=== PATIENT | female | born 1955 | race Caucasian/White ===

== ENCOUNTER → 2019-04-05 | Day surgery (SDC) | payer MEDICARE ==
[~2019-04-05] MED LIST: BUPIVACAINE HCL 0.5 % INJ/PF 30 ML SDV ONE; LIDOCAINE 1% INJ-PF (10 MG/ML) 30 ML SDV ONE
--- NOTE | 2019-04-05 10:40 | Operative Report ---
PREOPERATIVE DIAGNOSIS: Spondylolisis without myopathy or radiculopathy M47.818// Lumbar Sacral Spondylolisis without myopathy or radiculopathy M47.817 POSTOPERATIVE DIAGNOSIS:Spondylolisis without myopathy or radiculopathy M47.818// Lumbar Sacral Spondylolisis without myopathy or radiculopathy M47.817 PROCEDURE: 1. Radiofrequency Ablation of bilateral L5 dorsal Ramus 2. Sacroiliac Joint Ablation - Lateral Branches of the lateral S1, S2, S3 DATE OF PROCEDURE: April 05, 2019 ANESTHESIA: Local COMPLICATIONS: None CONSENT: A full description of the procedure was provided including benefits as well as possible complications. All questions were answered and informed consent was given and signed. ASA guidelines for fasting were verified prior to sedation. PROCEDURE IN DETAIL The patient was brought into the fluoroscopy suite and carefully assisted into the prone position on the fluoroscopy table and allowed to adjust to a position of comfort. A grounding pad was placed on the right thigh. The low back and buttocks were widely prepped with a chloraprep solution, allowed to air dry and draped in standard sterile surgical fashion. Local anesthesia was provided by 12 mL of 1 % lidocaine delivered with a 25 g needle. PROCEDURE #1: Radiofrequency Ablation of Dorsal Ramus of bilateral L5. A 17g 100mm radiofrequency introducer needle was placed to the planned anatomic target, guided with intermittent fluoroscopy with a perpendicular approach, to terminally place at the bilateral sacral ala. The stylets were removed and the radiofrequency probes with a 4mm active tip were then inserted. Needle tip position of the probes were verified in the AP, oblique, and lateral views. At each site, the medial branch nerve was stimulated at 2Hz to a maximum of 1- 2volts determined to finalize safe needle and electrode placement. The patient was awake and responsive during this portion of the procedure. Each target was anesthetized with 2mL of 2 % Sensorcaine anesthesia for lesioning and then each target was lesioned at 80 degrees Celsius for 2 minutes and 30 seconds. Tissue impedences were noted to be between 250 and 500 Ohms. PROCEDURE #2: Radiofrequency Ablation of bilateral S1, S2, S3 Lateral Branches Using the AP fluoroscopic view for visualization of the lateral PSFA as defined by the pre-placed 27-gauge Quincke needles, appropriate skin starting positions were defined. Using the PSFA as a "clock-face", the positions were: S1; bilateral = 1 and 5 oclock S2; bilateral = 1 and 5 oclock S3; bilateral = 3 oclock Using fluoroscopic guidance, a 17g introducer needle was inserted sequentially onto the target positions described above until the introducer tip touched the bony surface of the sacrum. The stylet was withdrawn from the introducer and the radiofrequency probe with a 4 mm active tip was fully inserted into the introducer. A lateral view was obtained for standard reference. At each of the targets, needle placement was verified with the use of multi-planar fluoroscopy. The needle tip position was approximately 7 - 10mm lateral to the PSFA as determined by using an Epsilon ruler. At each site, the lateral branch nerve was stimulated at 2 Hz to a maximum of 1- 2 volts determined to finalize safe needle and electrode placement. The patient was awake and responsive during this portion of the procedure. Each target was anesthetized with 2 mL of 2 % Sensorcaine anesthesia for lesioning and then each target was lesioned at 80 degrees Celsius for 2 minutes and 30 seconds. Tissue impedences were noted to be between 250- 500 Ohms. At the conclusion of the lesioning the needles were removed and bandages placed over the needle placement sites and the patient returned to the supine position on a stretcher and trans ported to the recovery room without hemodynamic, neurologic, or allergic reactions. Fluoroscopic images were printed for hard copy recording and digitally archived. FLUOROSCOPIC INTERPRETATION: Appropriate epidurogram obtained. Appropriate lesioning of the 10 targets noted. POST PROCEDURE EVALUATION: The patient was comfortable in the recovery room. The patient is aware that pain may worsen before remitting and 4 6 weeks may be required prior to the onset of pain relief. IMPRESSION: 1. Technically successful sacral lateral branch, lumbar dorsal ramus for denervation from L5-S3 on the bilateral without complication. 2. RTC in 2 weeks. 3. Estimated Blood Loss: None 4. Fluoroscopy time: 30 seconds
== END ==
LOC: RAD 10:22
PROVIDERS: ATTEND Family Medicine
DX: M47.817 Spondylosis without myelopathy or radiculopathy, lumbosacral region (principal)
CPT/HCPCS: 64635; 64640 ×3; J3490 ×2

== ENCOUNTER 2019-05-02 11:19 | Observation (INO) | payer MEDICARE ==
--- NOTE | 2019-05-02 11:31 | ER Document Report ---
ED Medical Screen (RME) - General Chief Complaint: S/S of Possible Stroke Stated Complaint: NUMBNESS/WEAKNESS Time Seen by Provider: 05/02/19 11:27 Primary Care Provider: TAMANNA CORONADO DO [Primary Care Provider] - Follow up as needed Mode of Arrival: Wheelchair Information source: Patient Notes: This 64-year-old female presents today with possible stroke. Patient has history of TIAs. She reports she woke up at 6:00 this morning felt a little bit weird. She then woke up at 10:00 this morning her numb lips were numb her speech is changed her legs feel weak. Her friend with her reports her speech is off. 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 Slurred speech, slight tongue deviation to the right. Patient does take anticoagulants but her friends are not sure w hat she takes. I have greeted and performed a rapid initial assessment of this patient. A comprehensive ED assessment and evaluation of the patient, analysis of test results and completion of the medical decision making process will be conducted by additional ED providers. Dictation of this chart was performed using voice recognition software; therefore, there may be some unintended grammatical errors. TRAVEL OUTSIDE OF THE [place] IN LAST 30 DAYS: No - Related Data Allergies/Adverse Reactions: codeine Allergy (Verified 05/02/19 11:20) ivp dye Allergy (Uncoded 05/02/19 11:20) Doctor's Discharge - Discharge Referrals: TAMANNA CORONADO DO [Primary Care Provider] - Follow up as needed
--- NOTE | 2019-05-02 11:52 | RADIOLOGY REPORT (SQ) ---
EXAM DESCRIPTION: CT HEAD WITHOUT COMPLETED DATE/TIME: 05/02/2019 11:44 am REASON FOR STUDY: bed t1 stroke alert COMPARISON: None. TECHNIQUE: Axial images acquired through the brain without intravenous contrast. Images reviewed wi th bone, brain and subdural windows. Images stored on PACS. All CT scanners at this facility use dose modulation, iterative reconstruction, and/or weight based d osing when appropriate to reduce radiation dose to as low as reasonably achievable (ALARA). [facility]: Dose Right [facility]: CareDose [facility]: Dose Right [facility]: Teradose 4D [facility]: Smart Nimble TV RADIATION DOSE: CT Rad equipment meets quality standard of care and radiation dose reduction techniq ues were employed. CTDIvol: 53.2 mGy. DLP: 1044 mGy-cm. mGy. LIMITATIONS: None. FINDINGS: VENTRICLES: Normal size and contour. CEREBRUM: No masses. No hemorrhage. No midline shift. No evidence for acute infarction. Normal gra y/white matter differentiation. No areas of low density in the white matter. CEREBELLUM: No masses. No hemorrhage. No alteration of density. No evidence for acute infarction. EXTRAAXIAL SPACES: No fluid collections. No masses. ORBITS AND GLOBE: No intra- or extraconal masses. Normal contour of globe without masses. CALVARIUM: No fracture. PARANASAL SINUSES: No fluid or mucosal thickening. SOFT TISSUES: No mass or hematoma. OTHER: No other significant finding. IMPRESSION: NORMAL BRAIN CT WITHOUT CONTRAST. EVIDENCE OF ACUTE STROKE: NO. COMMENT: Quality ID # [id number]: Final reports with documentation of one or more dose reduction techniques (e.g., Automated exposure control, adjustment of the mA and/or kV according to patient size, use of iterative reconstruction technique) TECHNICAL DOCUMENTATION: JOB ID: [id number] [employer] All Rights Reserved Reading location - IP/workstation name: [email or web address]
--- NOTE | 2019-05-02 12:02 | ER Document Report ---
ED Neuro Symptoms/Deficit - General Chief Complaint: S/S of Possible Stroke Stated Complaint: NUMBNESS/WEAKNESS Time Seen by Provider: 05/02/19 11:27 Primary Care Provider: TAMANNA CORONADO DO [Primary Care Provider] - Follow up as needed Mode of Arrival: Wheelchair Notes: Patient says that she is noted numbness around her lips and tongue starting this morning around 6 AM. Also noted weakness of her right leg and difficulty bearing weight and needing assistance to walk. No problem with her right arm or hand. Patient is never had a stroke, but says she has had 5 previous TIAs, the most recent being about a year and a half ago. Her symptoms today do not feel like what she has had previously with these TIAs. Patient denies any loss of consciousness. No headache until about 1 hour ago she developed some headache. No nausea or vomiting. Patient had a pain relief procedure performed on her about 2 weeks ago by a local pain physician. It was a procedure called Coolief in which she has cold water injected into the lumbar spine area. Patient said he did not do anything for her pain. Her follow-up from that procedure is to get MRIs of her spine, which have not been done yet. Patient has a history of high blood pressure, is on blood pressure medicines as well as Plavix. Denies any history of heart disease. TRAVEL OUTSIDE OF THE [place] IN LAST 30 DAYS: No - Related Data Allergies/Adverse Reactions: codeine Allergy (Verified 05/02/19 11:20) ivp dye Allergy (Uncoded 05/02/19 11:20) Past Medical History - General Information source: Patient - Social History Smoking Status: Current Every Day Smoker Family History: Reviewed & Not Pertinent - Past Medical History Cardiac Medical History: Reports: Hx Hypertension Neurological Medical History: Denies: Hx Cerebrovascular Accident - History of TIAs x5, the most recent being about a year and a half ago. Review of Systems - Review of Systems Notes: REVIEW OF SYSTEMS: CONSTITUTIONAL : Denies fever. EENT: Denies eye, ear, nose or mouth or throat pain or other symptoms, except as described in HPI. CARDIOVASCULAR: Denies chest pain. RESPIRATORY: Denies cough, chest congestion, or shortness of breath. GASTROINTESTINAL: Denies abdominal pain or nausea, vomiting, or diarrhea. GENITOURINARY: Denies difficulty or painful urinating, urinary frequency, blood in urine. MUSCULOSKELETAL: Denies back or neck pain. Denies joint pain or swelling. SKIN: Denies rash or skin lesions. NEUROLOGICAL: See HPI. ALL OTHER SYSTEMS REVIEWED AND NEGATIVE. Physical Exam - Vital signs Vitals: Pulse Ox 95 05/02/19 11:45 Interpretation: Hypertensive Notes: PHYSICAL EXAMINATION: GENERAL: Well-appearing, in no acute distress. Voice is normal. Does not have slurred speech. HEAD: Atraumatic, normocephalic. No facial asymmetry or indication of any cranial nerve deficit. EYES: Pupils equal round and reactive to light, extraocular movements intact. ENT: oropharynx clear without exudates. Moist mucous membranes. No problems swallowing. NECK: Normal range of motion, supple. No carotid bruits. LUNGS: Breath sounds clear and equal bilaterally. HEART: Regular rate and rhythm without murmurs. ABDOMEN: Soft, nontender. No guarding or rebound. No masses. BACK: No tenderness throughout entire back. EXTREMITIES: Normal range of motion without pain. NEUROLOGICAL: Normal speech. Normal sensory, motor, and reflex exams. Awake, alert, and oriented x3. Cranial nerves normal. Patient can stand, but is a bit unsteady on her feet and is best with support/assistance. No decrease in layer off of the right hand. [id number]. PSYCH: Normal mood, normal affect. SKIN: Warm, dry, no rashes. Course - Re-evaluation Re-evalutation: 05/02/19 13:23 Patient is outside of any window for thrombolytic administration. Is been a good 6 hours since the onset of her symptoms. Patient's work-up is essentially normal. CT scan shows no stroke. Spoke with hospitalist who will admit the patient for observation to [facility]. 05/02/19 13:24 Patient's initial blood pressure was 180/111 by me at the bedside. Subsequently, blood pressure came down to a systolic of 160 and I do not feel we need to lower it anymore given her circumstances. - Vital Signs Vital signs: Temp Pulse Resp BP Pulse Ox 95 05/02/19 11:45 - Laboratory Result Diagrams: 05/02/19 11:56 05/02/19 11:56 - Diagnostic Test Radiology reviewed: Image reviewed, Reports reviewed - CT scan of the brain is normal. No evidence of stroke. - EKG Interpretation by Me EKG shows normal: Sinus rhythm Rate: Normal Rhythm: NSR - EKG is normal. Discharge - Discharge Clinical Impression: TIA (transient ischemic attack), Hypertension Condition: Stable Disposition: ADMITTED OBSERVATION Admitting Provider: Oriana (Hospitalist) Unit Admitted: IMCU Referrals: TAMANNA CORONADO DO [Primary Care Provider] - Follow up as needed
[2019-05-02 12:16] LABS: ABSOLUTE BASOPHILS # (AUTO) 0.2 10^3/uL (0.0-0.2); ABSOLUTE EOSINOPHILS # (AUTO) 0.2 10^3/uL (0.0-0.6); ABSOLUTE MONOCYTES (AUTO) 0.9 10^3/uL (0.1-1.4); ABSOLUTE NEUT (AUTO) 9.5 10^3/uL (1.7-8.2); BASOPHILS % (AUTO) 1.2 % (0-2); EOSINOPHILS % (AUTO) 1.2 % (0-6); HEMATOCRIT 44.4 % (36.0-47.0); HEMOGLOBIN 14.8 g/dL (12.0-15.5); INTERNATIONAL RATION (INR) 0.93; MEAN CORPUSCULAR HGB CONC 33.4 g/dL (32.0-36.0); MEAN CORPUSCULAR VOLUME 90 fl (80-97); PLATELET COUNT 326 10^3/uL (150-450); PROTHROMBIN TIME 12.5 SEC (11.4-15.4); RED BLOOD COUNT 4.93 10^6/uL (3.72-5.28); RED CELL DISTRIBUTION WIDTH 14.9 % (11.5-14.0); SEGMENTED NEUTROPHILS % (AUTO) 64.6 % (42-78); TOTAL CELLS COUNTED % (AUTO) 100 %; WHITE BLOOD COUNT 14.7 10^3/uL (4.0-10.5)
[2019-05-02 12:17] LABS: PARTIAL THROMBOPLASTIN TIME 29.7 SEC (23.5-35.8)
--- NOTE | 2019-05-02 12:26 | RADIOLOGY REPORT (SQ) ---
EXAM DESCRIPTION: CHEST SINGLE VIEW COMPLETED DATE/TIME: 05/02/2019 12:04 pm REASON FOR STUDY: bed t1 stroke alert COMPARISON: None. EXAM PARAMETERS: NUMBER OF VIEWS: One view. TECHNIQUE: Single frontal radiographic view of the chest acquired. RADIATION DOSE: NA LIMITATIONS: None. FINDINGS: The cardiomediastinal silhouette and pulmonary vasculature are within normal limits. Ther e is a strand of atelectasis in the left base. There is no consolidation, pleural effusion or pneumo thorax. There is no acute abnormality of the imaged osseous structures. IMPRESSION: No acute cardiopulmonary process. TECHNICAL DOCUMENTATION: JOB ID: [id number] [employer]- All Rights Reserved Reading location - IP/workstation name: [email or web address]
[2019-05-02 12:34] LABS: ALBUMIN 4.2 g/dL (3.5-5.0); ALKALINE PHOSPHATASE 102 U/L (38-126); ANION GAP 7 (5-19); ASPARTATE AMINO TRANSFERASE 21 U/L (14-36); BILIRUBIN,DIRECT 0.1 mg/dL (0.0-0.4); BILIRUBIN,TOTAL 0.5 mg/dL (0.2-1.3); BLOOD UREA NITROGEN 12 mg/dL (7-20); CALCIUM 11.3 mg/dL (8.4-10.2); CARBON DIOXIDE 26 mmol/L (22-30); CHLORIDE 104 mmol/L (98-107); CREATINE KINASE 31 U/L (30-135); GLUCOSE 109 mg/dL (75-110); POTASSIUM 4.2 mmol/L (3.6-5.0); TOTAL PROTEIN 6.7 g/dL (6.3-8.2)
[2019-05-02] MEDS ORDERED: ONDANSETRON 4 MG TAB.RAPDIS PO ONE (12:44)
[2019-05-02] MEDS ORDERED: ACETAMINOPHEN 325 MG TABLET PO ONE (12:45)
[2019-05-02 12:46] LABS: CREATINE KINASE MB 0.45 ng/mL (<4.55)
[2019-05-02 12:53] LABS: TROPONIN I < 0.012 ng/mL
[2019-05-02] MEDS ORDERED: HYDRALAZINE HCL INJ/PF 20 MG/1 ML SDV IV PRN (14:36)
--- NOTE | 2019-05-02 15:07 | PDOC H&P ---
History of Present Illness Admission Date/PCP: 05/02/19 13:30 TAMANNA CORONADO DO Patient complains of: numbness History of Present Illness: ALISON HENRY is a 64 year old female with a past medical history of hypertension, hypothyroidism and prior TIAs who is presenting with numbness. Patient says that she was apparently fine until she woke up around 6 AM and went to the bathroom when she felt that she was unsteady on her feet. She also reports she was feeling numb on the fingers of her right hand, right lip and the right jaw area. She was seen by her best friend/neighbor who thought that she was also having slurred speech. She denies any headache, nausea or vomiting. Denies any chest pain or shortness of breath. In the ER, she had resolving symptoms. My encounter, her neighbor said that her speech is not slurred anymore. Patient says that she only now has very minimal tingling and numbness on the fingers of her right hand. Past Medical History Cardiac Medical History: Reports: Hypertension Past Surgical History Past Surgical History: Reports: Cholecystectomy, Hysterectomy, Orthopedic Surgery - back, Tonsillectomy Social History Smoking Status: Current Every Day Smoker Family History Family History: Reviewed & Not Pertinent Parental Family History Reviewed: Yes - No premature CAD Children Family History Reviewed: No Sibling(s) Family History Reviewed.: No Medication/Allergy Home Medications: Clopidogrel Bisulfate [Plavix 75 mg Tablet] 75 mg PO DAILY 05/02/19 Ibuprofen [Motrin 800 mg Tablet] 800 mg PO Q8HP PRN 05/02/19 Levothyroxine Sodium 200 mcg PO Q6AM 05/02/19 Metoprolol Succinate [Toprol XL 100 mg Tablet] 100 mg PO Q12 05/02/19 l Acidophil/B Lactis/B Longum [Florajen3 Capsule] 460 mg PO DAILY 05/02/19 Allergies/Adverse Reactions: codeine Allergy (Verified 05/02/19 11:20) ivp dye Allergy (Uncoded 05/02/19 11:20) Review of Systems All systems: reviewed and no additional remarkable complaints except as stated - As mentioned in HPI Physical Exam Vital Signs: Temp Pulse Resp BP Pulse Ox 98.1 F 91 22 H 171/95 H 96 05/02/19 13:31 05/02/19 12:00 05/02/19 13:31 05/02/19 13:31 05/02/19 13:31 Intake & Output 05/01/19 05/02/19 05/03/19 06:59 06:59 06:59 Weight 182 lb 8.684 oz General appearance: PRESENT: no acute distress, well-developed, well-nourished Head exam: PRESENT: atraumatic, normocephalic Eye exam: PRESENT: conjunctiva pink, EOMI, PERRLA. ABSENT: scleral icterus Ear exam: PRESENT: normal external ear exam Mouth exam: PRESENT: moist, tongue midline Neck exam: ABSENT: carotid bruit, JVD, lymphadenopathy, thyromegaly Respiratory exam: PRESENT: clear to auscultation rishabh. ABSENT: rales, rhonchi, wheezes Cardiovascular exam: PRESENT: RRR. ABSENT: diastolic murmur, rubs, systolic murmur Pulses: PRESENT: normal dorsalis pedis pul GI/Abdominal exam: PRESENT: normal bowel sounds, soft. ABSENT: distended, guarding, mass, organolmegaly, rebound, tenderness Rectal exam: PRESENT: deferred Neurological exam: PRESENT: alert, awake, oriented to person, oriented to place, oriented to time, oriented to situation, CN II-XII grossly intact, motor sensory deficit - Patient reports slightly reduced sensation on the right toe area and the tips of fingers on the right hand Results Laboratory Results: 05/02/19 11:56 05/02/19 11:56 05/02/19 05/02/19 11:56 11:56 WBC 14.7 H RBC 4.93 Hgb 14.8 Hct 44.4 MCV 90 MCH 30.0 MCHC 33.4 RDW 14.9 H Plt Count 326 Seg Neutrophils % 64.6 Sodium 137.0 Potassium 4.2 Chloride 104 Carbon Dioxide 26 Anion Gap 7 BUN 12 Creatinine 0.52 Est GFR ( Amer) > 60 Glucose 109 Calcium 11.3 H Total Bilirubin 0.5 AST 21 Alkaline Phosphatase 102 Total Protein 6.7 Albumin 4.2 05/02/19 05/02/19 11:56 11:56 Creatine Kinase 31 CK-MB (CK-2) 0.45 Troponin I < 0.012 Impressions: Chest X-Ray 05/02/19 11:23 IMPRESSION: No acute cardiopulmonary process. Head CT 05/02/19 11:23 IMPRESSION: NORMAL BRAIN CT WITHOUT CONTRAST. EVIDENCE OF ACUTE STROKE: NO. Assessment and Plan - Diagnosis (1) TIA (transient ischemic attack) Is this a current diagnosis for this admission?: Yes Plan: CT of the head was negative. Her symptoms are almost resolved but she does complain of minimal numbness on the right jaw and the fingertips of her right hand. Will pursue an MRI to further evaluate for an acute infarct. Will also check carotid Doppler. To be placed on telemetry monitoring as well. We will also initiate patient on statin. Add aspirin. (2) Hypothyroidism Is this a current diagnosis for this admission?: Yes Plan: Resume Synthroid. Will check a thyroid panel. (3) Hypertension Is this a current diagnosis for this admission?: Yes Plan: Resume home meds. Will also add losartan. (4) Hypercalcemia Is this a current diagnosis for this admission?: Yes Plan: Repeat calcium level. Will check PTH as well. - Time Time Spent with patient: 25-34 minutes
--- NOTE | 2019-05-02 15:12 | ADVANCED CARE ---
- Diagnosis (1) TIA (transient ischemic attack) Diagnosis Current: Yes (2) Hypercalcemia Diagnosis Current: Yes (3) Hypertension Diagnosis Current: Yes (4) Hypothyroidism Diagnosis Current: Yes Resuscitation Status: Do Not Resuscitate Discussion: Discussed with patient. She verbalizes she does not want any form of resuscitation including chest compressions, defibrillation or mechanical ventilation if the need arises. She says her daughter, Carol Ann Peguero is her surrogate medical decision maker.
--- NOTE | 2019-05-02 15:48 | RADIOLOGY REPORT (SQ) ---
EXAM DESCRIPTION: MRI HEAD WITHOUT COMPLETED DATE/TIME: 05/02/2019 3:29 pm REASON FOR STUDY: right facial numbness R53.1 WEAKNESS E03.9 HYPOTHYROIDISM, UNSPECIFIED COMPARISON: CT of the head without contrast from 05/02/2019. TECHNIQUE: Multiplanar imaging includes non-contrasted T1, T2, FLAIR, and diffusion with ADC map seq uences. Images stored on PACS. LIMITATIONS: None. FINDINGS: There is no abnormality of the midline structures. There is a focus of restriction diffusion within the left thalamic nucleus that demonstrates mild inc reased signal on the FLAIR and T2 sequences. There is no other focus of restricted diffusion. The areas of high T2/FLAIR signal involving the supratentorial periventricular and subcortical white matter are nonspecific but could represent the sequela of chronic microvascular ischemia. There is n o acute intracranial hemorrhage, extra-axial fluid collection, mass, mass effect or midline shift. T here is no effacement of the cerebral sulci or basal subarachnoid cisterns. The richard-white matter di fferentiation is preserved. There is no ventriculomegaly. The orbits and globes are normal in appearance. The paranasal sinuses and the mastoid air cells are clear. The intracranial vascular flow voids are maintained. IMPRESSION: Focus of restricted diffusion within the left thalamic nucleus consistent with an acute infarct. EVIDENCE OF ACUTE STROKE: YES. TECHNICAL DOCUMENTATION: JOB ID: [id number] [employer]- All Rights Reserved Reading location - IP/workstation name: [email or web address]
[2019-05-02 16:37] LABS: FREE T3 1.51 pg/mL (2.77-5.27); FREE T4 (FREE THYROXINE) 0.74 ng/dL (0.78-2.19)
[2019-05-02 16:51] LABS: THYROID STIMULATING HORMONE 28.3 uIU/mL (0.47-4.68)
[2019-05-02 20:41] LABS: CHOLESTEROL 205.12 mg/dL (0-200); TRIGLYCERIDES 152 mg/dL (<150)
[2019-05-02 20:51] LABS: DIRECT LDL 144 mg/dL (<100)
[2019-05-02 20:58] LABS: VLDL CHOLESTEROL 30.4 mg/dL (10-31)
[2019-05-02] MEDS: HEPARIN SOD (PORCINE) 5,000 UNIT/ML 1 ML VIAL SUBCUT SCH (22:03)
[2019-05-02] MEDS: METOPROLOL SUCCINATE 50 MG TAB.SR.24H PO SCH (22:03)
[2019-05-02] MEDS: ATORVASTATIN CALCIUM 40 MG TABLET PO SCH (22:03)
--- NOTE | 2019-05-02 22:22 | EKG REPORT ---
SEVERITY:- NORMAL ECG - SINUS RHYTHM : Confirmed by: Karena Haley MD 02-May-2019 22:21:56
[2019-05-03 05:09] LABS: ABSOLUTE BASOPHILS # (AUTO) 0.2 10^3/uL (0.0-0.2); ABSOLUTE EOSINOPHILS # (AUTO) 0.2 10^3/uL (0.0-0.6); ABSOLUTE LYMPHOCYTES (AUTO) 3.9 10^3/uL (0.5-4.7); ABSOLUTE MONOCYTES (AUTO) 0.8 10^3/uL (0.1-1.4); ABSOLUTE NEUT (AUTO) 7.5 10^3/uL (1.7-8.2); BASOPHILS % (AUTO) 1.3 % (0-2); EOSINOPHILS % (AUTO) 1.5 % (0-6); HEMATOCRIT 42.5 % (36.0-47.0); HEMOGLOBIN 14.1 g/dL (12.0-15.5); LYMPHOCYTES % (AUTO) 31.2 % (13-45); MEAN CORPUSCULAR HEMOGLOBIN 30.2 pg (27.0-33.4); MEAN CORPUSCULAR HGB CONC 33.1 g/dL (32.0-36.0); MEAN CORPUSCULAR VOLUME 91 fl (80-97); MONOCYTES % (AUTO) 6.1 % (3-13); PLATELET COUNT 289 10^3/uL (150-450); RED BLOOD COUNT 4.65 10^6/uL (3.72-5.28); RED CELL DISTRIBUTION WIDTH 14.5 % (11.5-14.0); SEGMENTED NEUTROPHILS % (AUTO) 59.9 % (42-78); TOTAL CELLS COUNTED % (AUTO) 100 %; WHITE BLOOD COUNT 12.6 10^3/uL (4.0-10.5)
[2019-05-03 05:30] LABS: BLOOD UREA NITROGEN 11 mg/dL (7-20); GLUCOSE 115 mg/dL (75-110); POTASSIUM 4.1 mmol/L (3.6-5.0)
[2019-05-03] MEDS: LEVOTHYROXINE SODIUM 0.1 MG TABLET PO SCH (05:34)
[2019-05-03] MEDS: HEPARIN SOD (PORCINE) 5,000 UNIT/ML 1 ML VIAL SUBCUT SCH ×3 (05:34→22:41)
[2019-05-03] MEDS: ACETAMINOPHEN 325 MG TABLET PO PRN (05:53)
[2019-05-03 05:56] LABS: CARBON DIOXIDE 27 mmol/L (22-30); CHLORIDE 104 mmol/L (98-107)
[2019-05-03] MEDS ORDERED: (PENDING PHARMACY ID) (Levothyroxine Sodium [Levothyroxine Sodium] 200 MCG) PO SCH (06:00)
[2019-05-03 06:03] LABS: ANION GAP 6 (5-19)
[2019-05-03] MEDS: LOSARTAN POTASSIUM 50 MG TABLET PO SCH (09:28)
[2019-05-03] MEDS: CLOPIDOGREL BISULFATE 75 MG TABLET PO SCH (09:28)
[2019-05-03] MEDS: ASPIRIN 81 MG TABLET, CHEWABLE PO SCH (09:28)
[2019-05-03] MEDS: METOPROLOL SUCCINATE 50 MG TAB.SR.24H PO SCH ×2 (09:28→22:41)
--- NOTE | 2019-05-03 12:00 | RADIOLOGY REPORT (SQ) ---
EXAM DESCRIPTION: CAROTID DOPPLER COMPLETED DATE/TIME: 05/03/2019 11:40 am REASON FOR STUDY: TIA R53.1 WEAKNESS E03.9 HYPOTHYROIDISM, UNSPECIFIED E78.49 OTHER HYPERLIPIDEMI A COMPARISON: None. TECHNIQUE: Grayscale ultrasound, Doppler velocity and spectra, and color Doppler images acquired of the extra-cranial carotid and vertebral arteries. Images stored on PACS. LIMITATIONS: None. FINDINGS: RIGHT CAROTID CCA Velocities: Within normal limits. ICA Velocities Peak systolic 39 cm/s. End diastolic 13 cm/s. Proximal ICA/CCA peak systolic ratio 0.85. Spectra normal. No significant plaque. LEFT CAROTID CCA Velocities: Within normal limits. ICA Velocities Peak systolic 60 a cm/s. End diastolic 24 cm/s. Proximal ICA/CCA peak systolic ratio 1.58. Spectra normal. No significant plaque. VERTEBRAL ARTERIES: Antegrade flow. Normal waveforms. SUBCLAVIAN ARTERIES: No finding. OTHER: No other significant finding. IMPRESSION: NO HEMODYNAMICALLY SIGNIFICANT STENOSIS. COMMENT: Quality ID #[id number]: Velocity criteria are extrapolated from the diameter data as defined by t he Society of Radiologists in Ultrasound Consensus Conference. Radiology 2003: 229; 340-346. TECHNICAL DOCUMENTATION: JOB ID: [id number] [employer]- All Rights Reserved Reading location - IP/workstation name: [email or web address]
--- NOTE | 2019-05-03 13:19 | PDOC PROGRESS REPORT ---
Subjective Progress Note for:: 05/03/19 Subjective:: This is a 64 year old female with a past medical history of hypertension, hypothyroidism and prior TIAs who with right lower facial numbness and tingling sensation on the right hand. CT of the head was unremarkable. MRI was pursued and this showed acute infarct in the left thalamic nuclei. Patient was not a TPA candidate. No acute event overnight. This morning, she says that her facial numbness and tingling on the fingers of her right hand are improving. Denies chest pain or shortness of breath. Reason For Visit: TIA Physical Exam Vital Signs: Temp Pulse Resp BP Pulse Ox 97.3 F 57 L 18 129/71 H 93 05/03/19 12:39 05/03/19 12:39 05/03/19 12:39 05/03/19 12:39 05/03/19 12:39 Intake & Output 05/02/19 05/03/19 05/04/19 06:59 06:59 06:59 Intake Total 100 360 Output Total 825 Balance -725 360 Weight 183 lb 10.321 oz General appearance: PRESENT: no acute distress, well-developed, well-nourished Head exam: PRESENT: atraumatic, normocephalic Eye exam: PRESENT: conjunctiva pink, EOMI, PERRLA. ABSENT: scleral icterus Ear exam: PRESENT: normal external ear exam Mouth exam: PRESENT: moist, tongue midline Neck exam: ABSENT: carotid bruit, JVD, lymphadenopathy, thyromegaly Respiratory exam: PRESENT: clear to auscultation rishabh. ABSENT: rales, rhonchi, wheezes Cardiovascular exam: PRESENT: RRR. ABSENT: diastolic murmur, rubs, systolic murmur Pulses: PRESENT: normal dorsalis pedis pul GI/Abdominal exam: PRESENT: normal bowel sounds, soft. ABSENT: distended, guar ding, mass, organolmegaly, rebound, tenderness Rectal exam: PRESENT: deferred Extremities exam: PRESENT: full ROM. ABSENT: calf tenderness, clubbing, pedal edema Neurological exam: PRESENT: alert, awake, oriented to person, oriented to place, oriented to time, oriented to situation, CN II-XII grossly intact, motor sensory deficit - We reduced sensation in the right lower facial area Results Laboratory Results: 05/03/19 04:53 05/03/19 04:53 05/02/19 05/02/19 05/02/19 11:56 16:27 20:18 WBC RBC Hgb Hct MCV MCH MCHC RDW Plt Count Seg Neutrophils % Sodium Potassium Chloride Carbon Dioxide Anion Gap BUN Creatinine Est GFR ( Amer) Glucose Calcium Triglycerides 152 H Cholesterol 205.12 H LDL Cholesterol Direct 144 H VLDL Cholesterol 30.4 HDL Cholesterol 52 TSH 28.30 H Free T4 0.74 L Free T3 pg/mL 1.51 L PTH Intact 70.6 H 05/03/19 05/03/19 04:53 04:53 WBC 12.6 H RBC 4.65 Hgb 14.1 Hct 42.5 MCV 91 MCH 30.2 MCHC 33.1 RDW 14.5 H Plt Count 289 Seg Neutrophils % 59.9 Sodium 137.2 Potassium 4.1 Chloride 104 Carbon Dioxide 27 Anion Gap 6 BUN 11 Creatinine 0.54 Est GFR ( Amer) > 60 Glucose 115 H Calcium 11.0 H Triglycerides Cholesterol LDL Cholesterol Direct VLDL Cholesterol HDL Cholesterol TSH Free T4 Free T3 pg/mL PTH Intact 05/02/19 05/02/19 11:56 11:56 Creatine Kinase 31 CK-MB (CK-2) 0.45 Troponin I < 0.012 Impressions: Chest X-Ray 05/02/19 11:23 IMPRESSION: No acute cardiopulmonary process. Head CT 05/02/19 11:23 IMPRESSION: NORMAL BRAIN CT WITHOUT CONTRAST. EVIDENCE OF ACUTE STROKE: NO. Head MRI 05/02/19 14:29 IMPRESSION: Focus of restricted diffusion within the left thalamic nucleus consistent with an acute infarct. EVIDENCE OF ACUTE STROKE: YES. Carotid Doppler Study 05/03/19 00:00 IMPRESSION: NO HEMODYNAMICALLY SIGNIFICANT STENOSIS. Assessment and Plan - Diagnosis (1) Acute CVA (cerebrovascular accident) Is this a current diagnosis for this admission?: Yes Plan: MRI showed an acute infarct on the left thalamic nuclei. Patient was noted to be candidate. Continue Plavix. Will also add aspirin. Continue aspirin. Carotid Doppler pending. (2) Hypertension Is this a current diagnosis for this admission?: Yes Plan: Continue losartan and metoprolol. (3) Hypercalcemia Is this a current diagnosis for this admission?: Yes Plan: Repeat calcium level is still elevated. PTH was also checked and came back elevated. Will order a neck ultrasound as part of primary hyperparathyroidism work-up. (4) Hypothyroidism Is this a current diagnosis for this admission?: Yes Plan: Continue Synthroid. - Time Time Spent with patient: 25-34 minutes
--- NOTE | 2019-05-03 17:04 | RADIOLOGY REPORT (SQ) ---
EXAM DESCRIPTION: U/S THYROID/SFT TISS HD NECK COMPLETED DATE/TIME: 05/03/2019 4:28 pm REASON FOR STUDY: hyperparathyroidism work-up R53.1 WEAKNESS E03.9 HYPOTHYROIDISM, UNSPECIFIED E78 .49 OTHER HYPERLIPIDEMIA COMPARISON: None. TECHNIQUE: Dynamic and static richard-scale images acquired of the thyroid gland. Selected additional c olor/power Doppler images recorded. All images stored to PACS. LIMITATIONS: None. FINDINGS: RIGHT LOBE: Normal size, 2.1 cm. Heterogeneous echotexture. No cystic or solid masses. LEFT LOBE: Normal size, 3 cm. Heterogeneous echotexture. No cystic or solid masses. ISTHMUS: Normal size, 3 mm. Homogeneous echotexture. No cystic or solid masses. OTHER: No parathyroid gland was identified. IMPRESSION: The thyroid is of normal size and is slightly heterogeneous. No definable mass is seen. No parathyroid gland was seen. TECHNICAL DOCUMENTATION: JOB ID: [id number] [employer]- All Rights Reserved Reading location - IP/workstation name: [email or web address]
[2019-05-03] MEDS: ATORVASTATIN CALCIUM 40 MG TABLET PO SCH (22:40)
[2019-05-04] MEDS: HEPARIN SOD (PORCINE) 5,000 UNIT/ML 1 ML VIAL SUBCUT SCH (05:24)
[2019-05-04] MEDS: LEVOTHYROXINE SODIUM 0.1 MG TABLET PO SCH (05:24)
[2019-05-04 08:32] VITALS: BP 136/79
[2019-05-04] MEDS: CLOPIDOGREL BISULFATE 75 MG TABLET PO SCH (09:12)
[2019-05-04] MEDS: LOSARTAN POTASSIUM 50 MG TABLET PO SCH (09:12)
[2019-05-04] MEDS: METOPROLOL SUCCINATE 50 MG TAB.SR.24H PO SCH (09:13)
[2019-05-04] MEDS: ASPIRIN 81 MG TABLET, CHEWABLE PO SCH (09:13)
[2019-05-04] MEDS: ACETAMINOPHEN 325 MG TABLET PO PRN (11:02)
--- NOTE | 2019-05-05 16:45 | PDOC DISCHARGE SUMMARY ---
General - Admit/Disc Date/PCP Admission Date/Primary Care Provider: 05/02/19 13:30 TAMANNA Barry IVONNE, DO Discharge Date: 05/04/19 - Discharge Diagnosis (1) Acute CVA (cerebrovascular accident) Is this a current diagnosis for this admission?: Yes (2) Hypertension Is this a current diagnosis for this admission?: Yes (3) Hypercalcemia Is this a current diagnosis for this admission?: Yes (4) Hypothyroidism Is this a current diagnosis for this admission?: Yes - Additional Information Resuscitation Status: Do Not Resuscitate Discharge Diet: Cardiac Discharge Activity: Activity As Tolerated, Balance Activity w/Rest Prescriptions: Aspirin [Aspirin 81 mg Chewable Tablet] 81 mg PO DAILY #30 tab.chew Losartan Potassium [Cozaar 50 mg Tablet] 50 mg PO DAILY #30 tablet Atorvastatin Calcium [Lipitor 40 mg Tablet] 40 mg PO QHS #30 tablet Home Medications: Clopidogrel Bisulfate [Plavix 75 mg Tablet] 75 mg PO DAILY 05/02/19 Ibuprofen [Motrin 800 mg Tablet] 800 mg PO Q8HP PRN 05/02/19 Levothyroxine Sodium 200 mcg PO Q6AM 05/02/19 Metoprolol Succinate [Toprol XL 100 mg Tablet] 100 mg PO Q12 05/02/19 l Acidophil/B Lactis/B Longum [Florajen3 Capsule] 460 mg PO DAILY 05/02/19 Aspirin [Aspirin 81 mg Chewable Tablet] 81 mg PO DAILY #30 tab.chew 05/04/19 Atorvastatin Calcium [Lipitor 40 mg Tablet] 40 mg PO QHS #30 tablet 05/04/19 Losartan Potassium [Cozaar 50 mg Tablet] 50 mg PO DAILY #30 tablet 05/04/19 History of Present Illness History of Present Illness: ALISON HENRY is a 64 year old female with a past medical history of hypertension, hypothyroidism and prior TIAs who is presenting with numbness. Patient says that she was apparently fine until she woke up around 6 AM and went to the bathroom when she felt that she was unsteady on her feet. She also reports she was feeling numb on the fingers of her right hand, right lip and the right jaw area. She was seen by her best friend/neighbor who thought that she was also having slurred speech. She denies any headache, nausea or vomiting. Denies any chest pain or shortness of breath. In the ER, she had resolving symptoms. My encounter, her neighbor said that her speech is not slurred anymore. Patient says that she only now has very minimal tingling and numbness on the fingers of her right hand. Hospital Course Hospital Course: This is a 64 year old female with a past medical history of hypertension, hypothyroidism and prior TIAs who with right lower facial numbness and tingling sensation on the right hand. CT of the head was unremarkable. MRI was pursued and this showed acute infarct in the left thalamic nuclei. Patient was not a TPA candidate. Plavix was added to her regimen. She was also started on statin. Losartan was also added to optimize blood pressure control. She did have an elevated calcium and PTH was checked and also came back elevated. Initial screen with neck ultrasound did not show any prominent hyperparathyroid lesions. Discussed with patient about close follow-up with PCP for further outpatient work-up and recommendations with endocrinology. Physical Exam Vital Signs: Temp Pulse Resp BP Pulse Ox 97.3 F 67 18 136/79 H 93 05/04/19 10:53 05/04/19 10:53 05/04/19 10:53 05/04/19 08:17 05/04/19 10:53 Intake & Output 05/04/19 05/05/19 05/06/19 06:59 06:59 06:59 Intake Total 1135 Balance 1135 Weight 182 lb 5.156 oz General appearance: PRESENT: no acute distress, well-developed, well-nourished Head exam: PRESENT: atraumatic, normocephalic Eye exam: PRESENT: conjunctiva pink, EOMI, PERRLA. ABSENT: scleral icterus Ear exam: PRESENT: normal external ear exam Mouth exam: PRESENT: moist, tongue midline Neck exam: ABSENT: carotid bruit, JVD, lymphadenopathy, thyromegaly Respiratory exam: PRESENT: clear to auscultation rishabh. ABSENT: rales, rhonchi, wheezes Cardiovascular exam: PRESENT: RRR. ABSENT: diastolic murmur, rubs, systolic murmur Pulses: PRESENT: normal dorsalis pedis pul GI/Abdominal exam: PRESENT: normal bowel sounds, soft. ABSENT: distended, guarding, mass, organolmegaly, rebound, tenderness Rectal exam: PRESENT: deferred Extremities exam: PRESENT: full ROM. ABSENT: calf tenderness, clubbing, pedal edema Neurological exam: PRESENT: alert, awake, oriented to person, oriented to place, oriented to time, oriented to situation, CN II-XII grossly intact, motor sensory deficit - slightly reduced sensation on the right lower facial area Results Laboratory Results: 05/03/19 04:53 05/03/19 04:53 05/02/19 05/02/19 11:56 11:56 Creatine Kinase 31 CK-MB (CK-2) 0.45 Troponin I < 0.012 Impressions: Chest X-Ray 05/02/19 11:23 IMPRESSION: No acute cardiopulmonary process. Head CT 05/02/19 11:23 IMPRESSION: NORMAL BRAIN CT WITHOUT CONTRAST. EVIDENCE OF ACUTE STROKE: NO. Head MRI 05/02/19 14:29 IMPRESSION: Focus of restricted diffusion within the left thalamic nucleus consistent with an acute infarct. EVIDENCE OF ACUTE STROKE: YES. Carotid Doppler Study 05/03/19 00:00 IMPRESSION: NO HEMODYNAMICALLY SIGNIFICANT STENOSIS. Thyroid Ultrasound 05/03/19 08:32 IMPRESSION: The thyroid is of normal size and is slightly heterogeneous. No definable mass is seen. No parathyroid gland was seen. Qualifiers - * PATIENT BEING DISCHARGED WITH ANY OF THE FOLLOWING DIAGNOSIS: Stroke Stroke Pt being discharged on Anti-thrombolytic therapy?: No Reason(s) for not prescribing Anti-thrombolytic therapy:: Not indicated Stroke Pt being discharged on Anti-coagulation therapy?: No Reason(s) for not prescribing Anti-coagulation therapy:: Not indicated Stroke Pt being discharged on Statins?: Yes Acute Heart Failure - Is this a Heart Failure Patient?: No
== END 2019-05-04 11:45 | disposition home health service (06) ==
LOC: ER 11:19 → EH 13:30 → 3W 21:31
PROVIDERS: ADMIT Internal Medicine; ATTEND Internal Medicine
DX: I63.89 Other cerebral infarction (principal); R20.2 Paresthesia of skin; R20.0 Anesthesia of skin; G81.91 Hemiplegia, unspecified affecting right dominant side; I10 Essential (primary) hypertension; E83.52 Hypercalcemia; E03.9 Hypothyroidism, unspecified; E78.49 Other hyperlipidemia; F17.210 Nicotine dependence, cigarettes, uncomplicated; Z66 Do not resuscitate; Z79.02 Long term (current) use of antithrombotics/antiplatelets; Z79.82 Long term (current) use of aspirin; Z79.899 Other long term (current) drug therapy; Z86.73 Personal history of transient ischemic attack (TIA), and cerebral infarction without residual deficits
CPT/HCPCS: 93005; 99285; 36415 ×2; 84439; 82553; 82962; 82550; 84443; 85025 ×2; 85610; 85730; 80048; 80053; 84484; 84481; 82330; 80061; 83970; 93880; 70551; 71045; 76536; 70450; 93010; G0378 ×4; A9270 ×14; J1644 ×3; J3490 ×3; S0119

== ENCOUNTER 2019-05-30 18:49 | Inpatient (IN) | payer MEDICARE, OTHER ==
--- NOTE | 2019-05-30 19:03 | ER Document Report ---
ED Medical Screen (RME) - General Chief Complaint: Numbness Stated Complaint: NUMBNESS Time Seen by Provider: 05/30/19 18:59 Primary Care Provider: TAMANNA CORONADO DO [Primary Care Provider] - Follow up as needed Mode of Arrival: Medic Information source: Patient, Emergency Med Personnel Notes: This 64-year-old female with history of TIAs and stroke presents emergency department with complaints of left-sided tingling weakness for the past 2 to 3 days left-sided facial drooping. Patient reports she had a stroke 1 month ago. She reports she is taking Plavix and a baby aspirin. Denies trauma. Reports left side heaviness tingling in her limbs face for the past 2 to 3 days. I have greeted and performed a rapid initial assessment of this patient. A comprehensive ED assessment and evaluation of the patient, analysis of test results and completion of the medical decision making process will be conducted by additional ED providers. Dictation of this chart was performed using voice recognition software; therefore, there may be some unintended grammatical errors. TRAVEL OUTSIDE OF THE [place] IN LAST 30 DAYS: No - Related Data Allergies/Adverse Reactions: codeine Allergy (Verified 05/02/19 11:20) ivp dye Allergy (Uncoded 05/02/19 11:20) Past Medical History - Past Medical History Cardiac Medical History: Reports: Hx Hypertension Neurological Medical History: Denies: Hx Cerebrovascular Accident - History of TIAs x5, the most recent being about a year and a half ago. Renal/ Medical History: Reports: Hx Kidney Stones Past Surgical History: Reports: Hx Cholecystectomy, Hx Hysterectomy, Hx Orthopedic Surgery - back, Hx Tonsillectomy Doctor's Discharge - Discharge Referrals: TAMANNA CORONADO DO [Primary Care Provider] - Follow up as needed
--- NOTE | 2019-05-30 19:30 | RADIOLOGY REPORT (SQ) ---
EXAM DESCRIPTION: CT HEAD WITHOUT COMPLETED DATE/TIME: 05/30/2019 7:16 pm REASON FOR STUDY: left side facial droop sx x 2 days COMPARISON: 05/02/2019 TECHNIQUE: Axial images acquired through the brain without intravenous contrast. Images reviewed wi th bone, brain and subdural windows. Additional sagittal and coronal reconstructions were generated. Images stored on PACS. All CT scanners at this facility use dose modulation, iterative reconstruction, and/or weight based d osing when appropriate to reduce radiation dose to as low as reasonably achievable (ALARA). [facility]: Dose Right [facility]: CareDose [facility]: Dose Right [facility]: Teradose 4D [facility]: [employer] RADIATION DOSE: mGy. LIMITATIONS: None. FINDINGS: VENTRICLES: Normal size and contour. CEREBRUM: No masses. No hemorrhage. No midline shift. No evidence for acute infarction. Normal gra y/white matter differentiation. Small punctate area of decreased attenuation in the left thalamus is noted consistent with chronic infarct. CEREBELLUM: No masses. No hemorrhage. No alteration of density. No evidence for acute infarction. EXTRAAXIAL SPACES: No fluid collections. No masses. ORBITS AND GLOBE: No intra- or extraconal masses. Normal contour of globe without masses. CALVARIUM: No fracture. PARANASAL SINUSES: No fluid or mucosal thickening. SOFT TISSUES: No mass or hematoma. OTHER: No other significant finding. IMPRESSION: No acute intracranial event. EVIDENCE OF ACUTE STROKE: NO. COMMENT: Pertinent positive or negative findings of the imaging study reported as a CRITICAL EXAM philip CORRAL NP at19:20 on 05/30/2019. Category of Critical Exam: Stroke protocol. Quality ID # [id number]: Final reports with documentation of one or more dose reduction techniques (e.g., Au tomated exposure control, adjustment of the mA and/or kV according to patient size, use of iterative reconstruction technique) TECHNICAL DOCUMENTATION: JOB ID: [id number] [employer]- All Rights Reserved Reading location - IP/workstation name: [email or web address]
--- NOTE | 2019-05-30 19:30 | RADIOLOGY REPORT (SQ) ---
EXAM DESCRIPTION: CHEST SINGLE VIEW COMPLETED DATE/TIME: 05/30/2019 7:20 pm REASON FOR STUDY: left side facial droop sx x 2 days COMPARISON: 05/02/2019 EXAM PARAMETERS: NUMBER OF VIEWS: One view. TECHNIQUE: Single frontal radiographic view of the chest acquired. RADIATION DOSE: NA LIMITATIONS: None. FINDINGS: LUNGS AND PLEURA: No opacities, masses or pneumothorax. No pleural effusion. MEDIASTINUM AND HILAR STRUCTURES: No masses. Contour normal. HEART AND VASCULAR STRUCTURES: Heart normal in size. Normal vasculature. BONES: No acute findings. HARDWARE: None in the chest. OTHER: No other significant finding. IMPRESSION: NO ACUTE RADIOGRAPHIC FINDING IN THE CHEST. TECHNICAL DOCUMENTATION: JOB ID: [id number] [employer]- All Rights Reserved Reading location - IP/workstation name: [email or web address]
[2019-05-30 19:31] LABS: INTERNATIONAL RATION (INR) 0.92; PARTIAL THROMBOPLASTIN TIME 30.3 SEC (23.5-35.8); PROTHROMBIN TIME 12.3 SEC (11.4-15.4)
[2019-05-30 19:32] LABS: ABSOLUTE BASOPHILS # (AUTO) 0.2 10^3/uL (0.0-0.2); ABSOLUTE EOSINOPHILS # (AUTO) 0.3 10^3/uL (0.0-0.6); ABSOLUTE LYMPHOCYTES (AUTO) 3.4 10^3/uL (0.5-4.7); ABSOLUTE MONOCYTES (AUTO) 0.8 10^3/uL (0.1-1.4); ABSOLUTE NEUT (AUTO) 8.8 10^3/uL (1.7-8.2); BASOPHILS % (AUTO) 1.1 % (0-2); EOSINOPHILS % (AUTO) 2.5 % (0-6); HEMATOCRIT 41.4 % (36.0-47.0); HEMOGLOBIN 13.8 g/dL (12.0-15.5); LYMPHOCYTES % (AUTO) 25.3 % (13-45); MEAN CORPUSCULAR HEMOGLOBIN 30.8 pg (27.0-33.4); MEAN CORPUSCULAR HGB CONC 33.3 g/dL (32.0-36.0); MEAN CORPUSCULAR VOLUME 92 fl (80-97); PLATELET COUNT 298 10^3/uL (150-450); RED BLOOD COUNT 4.48 10^6/uL (3.72-5.28); RED CELL DISTRIBUTION WIDTH 13.8 % (11.5-14.0); SEGMENTED NEUTROPHILS % (AUTO) 65.1 % (42-78); TOTAL CELLS COUNTED % (AUTO) 100 %; WHITE BLOOD COUNT 13.5 10^3/uL (4.0-10.5)
[2019-05-30 19:47] LABS: ALBUMIN 4.2 g/dL (3.5-5.0); ALKALINE PHOSPHATASE 103 U/L (38-126); ANION GAP 8 (5-19); ASPARTATE AMINO TRANSFERASE 25 U/L (14-36); BILIRUBIN,DIRECT 0.1 mg/dL (0.0-0.4); BILIRUBIN,TOTAL 0.4 mg/dL (0.2-1.3); BLOOD UREA NITROGEN 13 mg/dL (7-20); CALCIUM 11.4 mg/dL (8.4-10.2); CARBON DIOXIDE 29 mmol/L (22-30); CHLORIDE 102 mmol/L (98-107); CREATINE KINASE 42 U/L (30-135); GLUCOSE 100 mg/dL (75-110); POTASSIUM 4.1 mmol/L (3.6-5.0); TOTAL PROTEIN 6.9 g/dL (6.3-8.2)
[2019-05-30 20:00] LABS: CREATINE KINASE MB 0.36 ng/mL (<4.55)
[2019-05-30 20:08] LABS: TROPONIN I < 0.012 ng/mL
[2019-05-30] MEDS ORDERED: ONDANSETRON HCL INJ/PF 4 MG/2 ML SDV IV ONE ×2 (20:41→23:12)
--- NOTE | 2019-05-30 21:41 | ER Document Report ---
ED Neuro Symptoms/Deficit - General Chief Complaint: Numbness Stated Complaint: NUMBNESS Time Seen by Provider: 05/30/19 18:59 Mode of Arrival: Medic Notes: Patient is a 64-year-old female that comes to the emergency department for chief complaint of numbness to the left side of face with possible facial drooping and also weakness in her left leg. Patient states this is been going on in the past 2 days, family states that she only started dragging her left leg today. Patient states that it is difficult to walk today. Patient states she has physical therapy, they came by and evaluated her, they became concerned and called EMS. Patient had a stroke 1 month ago in the left thalamic area causing her ongoing right-sided weakness but she does not normally have a left-sided deficit. Patient denies headache, vomiting, chest pain, shortness of breath. Patient does admit that she is having difficulty swallowing over the past couple of days as well. She is already on Plavix and aspirin, has a history of hyper tension, cholecystectomy, his treatment, kidney stones, hypothyroidism. TRAVEL OUTSIDE OF THE [place] IN LAST 30 DAYS: No - Related Data Allergies/Adverse Reactions: codeine Allergy (Verified 05/02/19 11:20) ivp dye Allergy (Uncoded 05/02/19 11:20) Past Medical History - General Information source: Patient, Emergency Med Personnel - Social History Smoking Status: Former Smoker Frequency of alcohol use: None Drug Abuse: None Lives with: Family Family History: Reviewed & Not Pertinent Patient has suicidal ideation: No Patient has homicidal ideation: No - Past Medical History Cardiac Medical History: Reports: Hx Hypertension Neurological Medical History: Denies: Hx Cerebrovascular Accident - History of TIAs x5, the most recent being about a year and a half ago. Renal/ Medical History: Reports: Hx Kidney Stones Past Surgical History: Reports: Hx Cholecystectomy, Hx Hysterectomy, Hx Orthopedic Surgery - back, Hx Tonsillectomy Review of Systems - Review of Systems Constitutional: No symptoms reported EENT: No symptoms reported Cardiovascular: No symptoms reported Respiratory: No symptoms reported Gastrointestinal: No symptoms reported Genitourinary: No symptoms reported Female Genitourinary: No symptoms reported Musculoskeletal: See HPI Skin: No symptoms reported Hematologic/Lymphatic: No symptoms reported Neurological/Psychological: See HPI Physical Exam - Vital signs Vitals: Pulse Ox 99 05/30/19 19:00 - Notes Notes: GENERAL: Alert, interacts well. No acute distress. HEAD: Normocephalic, atraumatic. EYES: Pupils equal, round, and reactive to light. Extraocular movements intact. ENT: Oral mucosa moist, tongue midline. Oropharynx unremarkable. Airway patent. Nares patent, no nasal septal hematoma, TM's intact. NECK: Full range of motion. Supple. Trachea midline. LUNGS: Clear to auscultation bilaterally, no wheezes, rales, or rhonchi. No respiratory distress. HEART: Regular rate and rhythm. No murmur ABDOMEN: Soft, non-tender. Non-distended. EXTREMITIES: There is mild weakness of the right leg but patient can lift and suspend for multiple seconds before dropping. There is no notable weakness of the left leg and patient can barely lift against gravity and cannot hold the leg above the bed for a full second. Sensation intact, neurovascular intact bilaterally. Arms unremarkable. Back exam unremarkable. BACK: no cervical, thoracic, lumbar midline tenderness. No saddle anesthesia, no rmal distal neurovascular exam. Moves all extremities in full range of motion. NEUROLOGICAL: Alert and oriented x3. Normal speech. Cranial nerves II through XII grossly intact. See extremity exam. PSYCH: Normal affect, normal mood. SKIN: Warm, dry, normal turgor. No rashes or lesions noted. Course - Re-evaluation Re-evalutation: On my evaluation patient has noted weakness of the left lower extremity, she can barely raise it off the bed at all and she drops it for 1 second. Normally she ambulates without difficulty on this leg per patient and family, patient has a right-sided deficit, the left side is new. However patient does not have noted slurring of speech or facial droop on my evaluation. She did fail the swallow test however. This is also new for the patient per family and patient. Because the symptoms have been going on for reportedly 48 hours (although the definite timeframe is unsure) patient is not a TPA candidate. Patient does not have development of symptoms. CT of the head is negative. EKG, chest x-ray, CBC, chemistry, troponin without acute abnormality other than mild leukocytosis. Because of patient's new neurological deficits will discuss with hospitalist for admission. Discussed with Dr. Mike, he requests CTA of the head. Patient had to be premedicated for this but this was completed. This does not show acute etiology. Patient was admitted to the [facility] full admission. Patient and family state appreciation and agreement. - Vital Signs Vital signs: Temp Pulse Resp BP Pulse Ox 97.1 F 74 15 148/79 H 97 05/31/19 00:01 05/31/19 02:14 05/31/19 03:01 05/31/19 03:01 05/31/19 03:01 - Laboratory Result Diagrams: 05/30/19 19:04 05/30/19 19:04 Laboratory results interpreted by me: 05/30/19 05/30/19 19:04 19:04 WBC 13.5 H Absolute Neuts (auto) 8.8 H Creatinine 0.47 L Calcium 11.4 H Discharge - Discharge Clinical Impression: Left leg weakness, Inability to swallow Condition: Stable Disposition: ADMITTED INPATIENT Admitting Provider: Rashid (Hospitalist) Unit Admitted: [facility]
--- NOTE | 2019-05-30 21:43 | ER Document Report ---
ED Altepl[employer]/Exc Criteria - Date/Time patient last known well: Date/Time: 48 hours ago - Date/Time patient arrived in ED: _: 05/30/2019, 1840 - Inclusion Criteria: 1: Patient presented to ED within 3 hours of acute ischemic stroke symptom o nset? -: No 2: Did baseline CT exclude intracranial hemorrhage and/or other risk factors? -: Yes 3: Is the age of the patient 18 years of age or greater? -: Yes : If any of the above questions are answered "NO" then stop, patient is not a candidate for Alteplase, : If all of the above questions are answered "YES" then continue with Exclusion Criteria. - Exclusion Criteria: 1: Is there evidence of intracranial hemorrhage on baseline CT? 2: Is there suspicion of subarachnoid hemorrhage (even if CT negative)? 3: Is there a history of serious head trauma, recent previous stroke or LA within 3 months? 4: Does the patient have a clinical presentation consistent with LA or post-LA pericarditis? 5: Is there history of intracranial hemorrhage? 6: On repeated measurement is Systolic BP greater than 185mmHg or Diastolic BP greater that 110 mmHg and is aggressive treatment needed to reduce blood pressure to these limits (e.g. constant infusion of an anti-hypertensive)? 7: Did the patient awake with stroke symptoms? 8: Has the patient had a lumbar puncture or an arterial puncture at a non- compressile site within 7 days? 9: With in the last 14 days did the patient have surgery or major trauma? 10: Is the patient or less than 2 weeks? 11: Was there any active bleeding or acute trauma? 12: Does the patient have intracranial neoplasm, arteriovenous malformation or aneurysm? 13: Does the patient have abnormal glucose (less than 50 or greater than 400 mg/dl)? Record glucose in Comment. 14: Patient has rapidly improving symptoms at the time Alteplase is to be Administered. 15: Does the patient have any risks for bleeding, including but not limited to: a.: Current use of Coumadin with PT greater than 15 seconds or INR greater than 1.7. b.: Current use of Pradaxa (Dabigatran). c.: Heparin administereed within the past 48 hours and PTT elevated. d.: Platelet count less than 100,000/mm. e.: Major surgery or serious trauma within 14 days. f.: Gastrointestinal or gynecological urinary bleeding within 14 days. g.: Myocardial Infarction (LA) within 3 months. : If the answer to any of the above questions is "YES" then stop, the patient is not a candidate for Alteplase. : If the answer to all of the above questions is "NO" then the patient may be eligible for the Administration of Alteplase. : If the patient is noted to have seizure activity at onset of Stroke symptoms; Consult Neurologist for further evaluation. - The patient is: -: Included and is eligible to receive Alteplase. *Initiate bed placement at higher level of care* Reviewed risks & benefits of thrombolytic therapy: I have reviewed the risks and benefits of thrombolytic therapy with the patient and/or his/her family. -: Excluded and not eligible to receive Alteplase for the above exclusions. -: Excluded and not eligible to receive Alteplase for other reasons (specify in comments): - Diagnosis of TIA: -: Patient presented with transient symptoms that are now resolved and no other neurologic findings are currently present. List symptoms in comments. -: Patient is NOT a candidate for tPA. -: ____(put name in comment) has been consulted for admission and continued evaluation of risk factor assessment.
[2019-05-30] MEDS ORDERED: FENTANYL CITRATE INJ/PF 100 MCG/2 ML AMPUL IV ONE (23:12)
[2019-05-30] MEDS ORDERED: DIPHENHYDRAMINE HCL 50 MG/ML VIAL IV ONE (23:55)
[2019-05-30] MEDS ORDERED: METHYLPREDNISOLONE INJ 125 MG/2 ML SDV IV ONE (23:55)
[2019-05-30] MEDS ORDERED: FAMOTIDINE INJ/PF 20 MG/2 ML SDV IV ONE (23:55)
--- NOTE | 2019-05-31 01:45 | RADIOLOGY REPORT (SQ) ---
CLINICAL HISTORY: left leg weakness, failed swallow study COMPARISON: None. TECHNIQUE: CT HEAD ANGIOGRAPHY WITHOUT THEN WITH IV CONTRAST on 05/30/2019 10:59 PM CDT This exam was performed according to our departmental dose-optimization program, which includes automated exposure control, adjustment of the mA and/or kV according to patient size and/or use of iterative reconstruction technique. MIP reconstructions were generated. Stenoses are calculated by NASCET criteria. FINDINGS: Bilateral anterior and middle cerebral arteries are diffusely patent. The anterior communicating artery is present. Vertebral basilar system is normal. Posterior cerebral arteries are patent. Distal internal carotid arteries are unremarkable. IMPRESSION: No significant vascular abnormalities. CAROTID STENOSIS REFERENCE USING NASCET CRITERIA: % ICA stenosis = (1 - narrowest ICA diameter/diameter of distal cervical ICA) x 100. Mild - <50% stenosis. Moderate - 50-69% stenosis. Severe - 70-94% stenosis. Near occlusion - 95-99% stenosis. Occluded - 100% stenosis.
[2019-05-31] MEDS ORDERED: ACETAMINOPHEN 650 MG SUPP.RECT PR PRN (02:17)
--- NOTE | 2019-05-31 05:34 | PDOC H&P ---
History of Present Illness Admission Date/PCP: 05/31/19 02:20 WALESKA ARREDONDO MD Patient complains of: 4 days of left leg weakness History of Present Illness: ALISON HENRY is a 64 year old female with a past medical history of CVA with residual right-sided weakness, hypothyroidism, hypertension and hypercalcemia. She presents after 4 days of intermittent left leg heaviness associated palpitations, fullness and tingling sensation of the left cheek and coughing while swallowing. In the emergency room she has an unremarkable work-up. She denies recent change in medication regiment is otherwise felt well she denies blurred vision or pain on chewing. Past Medical History Cardiac Medical History: Reports: Hypertension Neurological Medical History: Reports: Ischemic CVA Past Surgical History Past Surgical History: Reports: Cholecystectomy, Hysterectomy, Orthopedic Surgery - back, Tonsillectomy Social History Information Source: Patient Lives with: Family Smoking Status: Former Smoker Frequency of Alcohol Use: None Drugs: None - Advance Directive Resuscitation Status: Full Code Family History Family History: CVA, Other - Hypercalcemia Parental Family History Reviewed: Yes Children Family History Reviewed: Yes Sibling(s) Family History Reviewed.: Yes Medication/Allergy Home Medications: Clopidogrel Bisulfate [Plavix 75 mg Tablet] 75 mg PO DAILY 05/02/19 Ibuprofen [Motrin 800 mg Tablet] 800 mg PO Q8HP PRN 05/02/19 Levothyroxine Sodium 200 mcg PO Q6AM 05/02/19 Metoprolol Succinate [Toprol XL 100 mg Tablet] 100 mg PO Q12 05/02/19 l Acidophil/B Lactis/B Longum [Florajen3 Capsule] 460 mg PO DAILY 05/02/19 Aspirin [Aspirin 81 mg Chewable Tablet] 81 mg PO DAILY #30 tab.chew 05/04/19 Atorvastatin Calcium [Lipitor 40 mg Tablet] 40 mg PO QHS #30 tablet 05/04/19 Losartan Potassium [Cozaar 50 mg Tablet] 50 mg PO DAILY #30 tablet 05/04/19 Allergies/Adverse Reactions: codeine Allergy (Verified 05/02/19 11:20) ivp dye Allergy (Uncoded 05/02/19 11:20) Review of Systems Constitutional: PRESENT: as per HPI, fatigue, weakness. ABSENT: chills, fever(s), headache(s), weight gain, weight loss Eyes: ABSENT: visual disturbances Ears: ABSENT: hearing changes Cardiovascular: PRESENT: as per HPI, palpitations. ABSENT: chest pain, dyspnea on exertion, edema, orthropnea Respiratory: ABSENT: cough, hemoptysis Gastrointestinal: ABSENT: abdominal pain, constipation, diarrhea, hematemesis, hematochezia, nausea, vomiting Genitourinary: ABSENT: dysuria, hematuria Musculoskeletal: PRESENT: as per HPI, muscle weakness. ABSENT: joint swelling Integumentary: ABSENT: rash, wounds Neurological: PRESENT: as per HPI, abnormal speech, focal weakness, numbness, paresthesias, tingling, weakness. ABSENT: abnormal gait, confusion, dizziness, syncope Psychiatric: ABSENT: anxiety, depression, homidical ideation, suicidal ideation Endocrine: ABSENT: cold intolerance, heat intolerance, polydipsia, polyuria Hematologic/Lymphatic: ABSENT: easy bleeding, easy bruising Physical Exam Vital Signs: Temp Pulse Resp BP Pulse Ox 97.1 F 74 15 148/79 H 97 05/31/19 00:01 05/31/19 02:14 05/31/19 03:01 05/31/19 03:01 05/31/19 03:01 Intake & Output 05/29/19 05/30/19 05/31/19 11:59 11:59 11:59 Weight 81.647 kg General appearance: PRESENT: cooperative, mild distress, well-developed, well- nourished Head exam: PRESENT: atraumatic, normocephalic Eye exam: PRESENT: conjunctiva pink, EOMI, PERRLA. ABSENT: scleral icterus Ear exam: PRESENT: normal external ear exam Mouth exam: PRESENT: moist, tongue midline Neck exam: ABSENT: carotid bruit, JVD, lymphadenopathy, thyromegaly Respiratory exam: PRESENT: clear to auscultation rishabh. ABSENT: rales, rhonchi, wheezes Cardiovascular exam: PRESENT: RRR, systolic murmur. ABSENT: diastolic murmur, rubs Pulses: PRESENT: normal dorsalis pedis pul Vascular exam: PRESENT: normal capillary refill GI/Abdominal exam: PRESENT: normal bowel sounds, soft. ABSENT: distended, guarding, mass, organolmegaly, rebound, tenderness Rectal exam: PRESENT: deferred Extremities exam: PRESENT: full ROM. ABSENT: calf tenderness, clubbing, pedal edema Musculoskeletal exam: PRESENT: other - 4+ out of 5 strength in the left side Neurological exam: PRESENT: alert, awake, oriented to person, oriented to place, oriented to time, oriented to situation, CN II-XII grossly intact. ABSENT: motor sensory deficit Psychiatric exam: PRESENT: appropriate affect, normal mood. ABSENT: homicidal ideation, suicidal ideation Skin exam: PRESENT: dry, intact, warm. ABSENT: cyanosis, rash Results Laboratory Results: 05/30/19 19:04 05/30/19 19:04 05/30/19 05/30/19 19:04 19:04 WBC 13.5 H RBC 4.48 Hgb 13.8 Hct 41.4 MCV 92 MCH 30.8 MCHC 33.3 RDW 13.8 Plt Count 298 Seg Neutrophils % 65.1 Sodium 139.2 Potassium 4.1 Chloride 102 Carbon Dioxide 29 Anion Gap 8 BUN 13 Creatinine 0.47 L Est GFR ( Amer) > 60 Glucose 100 Calcium 11.4 H Total Bilirubin 0.4 AST 25 Alkaline Phosphatase 103 Total Protein 6.9 Albumin 4.2 05/30/19 05/30/19 19:04 19:04 Creatine Kinase 42 CK-MB (CK-2) 0.36 Troponin I < 0.012 Impressions: Chest X-Ray 05/30/19 19:00 IMPRESSION: NO ACUTE RADIOGRAPHIC FINDING IN THE CHEST. Head CT 05/30/19 19:00 IMPRESSION: No acute intracranial event. EVIDENCE OF ACUTE STROKE: NO. Head CTA 05/30/19 22:59 IMPRESSION: No significant vascular abnormalities. CAROTID STENOSIS REFERENCE USING NASCET CRITERIA: % ICA stenosis = (1 - narrowest ICA diameter/diameter of distal cervical ICA) x 100. Mild - <50% stenosis. Moderate - 50-69% stenosis. Severe - 70-94% stenosis. Near occlusion - 95-99% stenosis. Occluded - 100% stenosis. Assessment and Plan - Diagnosis (1) Acute CVA (cerebrovascular accident) Is this a current diagnosis for this admission?: Yes Plan: CVA care set, recent work-up unremarkable 1 month ago. Continue Plavix and aspirin follow-up 2D echo and telemetry (2) Palpitations Is this a current diagnosis for this admission?: Yes Plan: Possible paroxysmal atrial fibrillation examined telemetry alarms (3) Inability to swallow Is this a current diagnosis for this admission?: Yes Plan: Secondary to #1, speech therapy (4) Left leg weakness Is this a current diagnosis for this admission?: Yes Plan: Secondary to #1, physical therapy (5) Hypercalcemia Is this a current diagnosis for this admission?: Yes Plan: Though she gives a history of family members with hypercalcemia her PTH is elevated suggestive of primary hyperparathyroidism. Follow-up vitamin D level - Time Time Spent with patient: 25-34 minutes - Inpatient Certification Medical Necessity: Need Close Monitoring Due to Risk of Patient Decompensation
[2019-05-31 06:42] LABS: ABSOLUTE BASOPHILS # (AUTO) 0.1 10^3/uL (0.0-0.2); ABSOLUTE MONOCYTES (AUTO) 0.1 10^3/uL (0.1-1.4); ABSOLUTE NEUT (AUTO) 11.9 10^3/uL (1.7-8.2); BASOPHILS % (AUTO) 0.5 % (0-2); EOSINOPHILS % (AUTO) 0.1 % (0-6); HEMATOCRIT 41.3 % (36.0-47.0); HEMOGLOBIN 13.8 g/dL (12.0-15.5); LYMPHOCYTES % (AUTO) 7.9 % (13-45); MEAN CORPUSCULAR HEMOGLOBIN 30.6 pg (27.0-33.4); MEAN CORPUSCULAR HGB CONC 33.6 g/dL (32.0-36.0); MEAN CORPUSCULAR VOLUME 91 fl (80-97); MONOCYTES % (AUTO) 0.7 % (3-13); PLATELET COUNT 274 10^3/uL (150-450); RED BLOOD COUNT 4.52 10^6/uL (3.72-5.28); RED CELL DISTRIBUTION WIDTH 13.8 % (11.5-14.0); SEGMENTED NEUTROPHILS % (AUTO) 90.8 % (42-78); TOTAL CELLS COUNTED % (AUTO) 100 %; WHITE BLOOD COUNT 13.1 10^3/uL (4.0-10.5)
[2019-05-31] MEDS: HEPARIN SOD (PORCINE) 5,000 UNIT/ML 1 ML VIAL SUBCUT SCH ×3 (06:54→21:51)
--- NOTE | 2019-05-31 07:48 | EKG REPORT ---
SEVERITY:- NORMAL ECG - SINUS RHYTHM : Confirmed by: Quinton Lane MD 31-May-2019 07:47:35
--- NOTE | 2019-05-31 09:31 | RADIOLOGY REPORT (SQ) ---
EXAM DESCRIPTION: ELAINA SWALLOW COMPLETED DATE/TIME: 05/31/2019 8:56 am REASON FOR STUDY: Dysphasia COMPARISON: None. TECHNIQUE: Videofluoroscopic swallowing examination was performed in conjunction with speech patholo gy. Videofluoroscopic imaging was obtained and reviewed and these are the findings: RADIATION DOSE: Fluoro time 1.28 minutes 2 images saved to PACS. LIMITATIONS: None FINDINGS: The patient was brought into the fluoro room and placed upright on a modified barium swall ow chair. The patient was then given multiple consistencies mixed with barium to swallow under live fluoroscopic video guidance. According to the Speech Pathologist there was no penetration or aspirat ion. Please refer to the speech pathology report for further details. IMPRESSION: NO EVIDENCE OF PENETRATION OR ASPIRATION. PLEASE SEE SPEECH PATHOLOGIST REPORT FOR OTHER FINDINGS AND RECOMMENDATIONS. COMMENT: None Quality ID [id number]: Final reports for procedures using fluoroscopy that document radiation exposure janice shanti, or exposure time and number of fluorographic images (if radiation exposure indices are not avail able) TECHNICAL DOCUMENTATION: JOB ID: [id number] [employer]- All Rights Reserved Reading location - IP/workstation name: [email or web address]
--- NOTE | 2019-05-31 09:55 | ST Inp Modified Barium Swallow ---
Medical Diagnosis - Medical Diagnoses Medical Diagnosis Description & ICD-10 Code(s): CVA, inability to swallow - ICD-10 Tx Diagnosis Coding (1) Dysphagia ICD-10 Code(s): R13.10 - DYSPHAGIA, UNSPECIFIED ST Inpatient MBS - General Date: 05/31/19 Date of Onset: 05/01/19 - approximate onset date - History -: Medical - per EMR: patient admitted 05/31 with leg weakness x4 days. Patient reports coughing while swallowing and left side facial droop. Prior medical history includes CVA approximately 1 month ago (per patient report) with res idual right side weakness. Patient reports that she was receiving home health speech therapy, including NMES on left side of face. Patient failed her nursing swallow screen, and physician ordered MBSS to assess swallow. Patient NPO at this time. Medications: Medications Reviewed Allergies: Refer to medical record - Subjective Current Nutritional Means: NPO Current PO Diet: N/A (NPO) Current Symptoms: Coughing - failed nursing swallow screen Pain: Patient reports, 0/5 - Objective Assessment: Upright, Left Lateral - Food Trials Food Trials Used: Thin liquids, Pureed, Regular The Patient: Was Able to Self Feed - Assessment Labial Function: Impaired - left sided weakness-loss of liquid Lingual Function: Within Functional Limits Mandibular Function: Within Functional Limits Velo-Pharyngeal Function: Unremarkable Laryngeal Function: clear voicing - Pharyngeal Stage Initiation of Pharyngeal Stage: Normal Decreased Laryngeal Elevation: No Reduced Pressure Generation: No Reduced Tongue Base Retraction: No Pre-Swallowing Pooling in Valleculae: None Pre-Swallowing Pooling in Pyriforms: None Reduced Thyro-Hyiod Approximation: No Reduced Epiglottic Excursion: No Reduced Pharyngeal Peristalsis: No Multiple Swallows With: Cleared w/ Dry Swallow - spontaneous Post Swallow Residuals in Valleculae: Mild Post Swallow Residuals in Pyriforms: None Pahryngeal Stage Comments: Effecient pharyngeal phase swallow seen for all trial textures, timely swallow with no aspiration/penetration, no significant residue, no signs of decreased pharyngeal function. - Impression/Summary Laryngeal Penetration: No Tracheal Aspiration: no Patient Presents With: Oral stage dysphagia, Mild-Moderate Risk of Aspiration: Minimal Risk of Nutritional Compromise: WNL - Recommendations Solid Diet Recommendations: Regular Liquid Diet Recommendations: Thin Dysphagia Therapy with PAINTER TOUCH UP: Yes - to address oral phase deficits Recommended Techniques: Fully Upright During Meal, Small Bites and Sips Other Recommendations: Plan to follow up with patient x1 this week, x2 next week to address labial seal and reduced left side/anterior loss of liquid. Goals: Patient will complete OMEs for labial tension/closure independently x10. Patient will complete cup sips of thin liquid without anterior/left side spillage in 4/5 trials. Patient may benefit from continued speech therapy after discharge from hospital. - Time Total Time: 30 Total Timed Minutes: 30
[2019-05-31] MEDS: ASPIRIN 81 MG TABLET, ENT COATED PO SCH (10:51)
[2019-05-31] MEDS: CLOPIDOGREL BISULFATE 75 MG TABLET PO SCH (10:51)
[2019-05-31] MEDS: ATORVASTATIN CALCIUM 40 MG TABLET PO SCH (21:52)
[2019-05-31] MEDS: METOPROLOL SUCCINATE 50 MG TAB.SR.24H PO SCH (21:52)
[2019-06-01] MEDS: LEVOTHYROXINE SODIUM 0.1 MG TABLET PO SCH (05:14)
[2019-06-01] MEDS: HEPARIN SOD (PORCINE) 5,000 UNIT/ML 1 ML VIAL SUBCUT SCH ×3 (05:14→21:18)
[2019-06-01] MEDS: LEVOTHYROXINE SODIUM 0.075 MG TABLET PO SCH (05:14)
[2019-06-01 05:30] LABS: ABSOLUTE BASOPHILS # (AUTO) 0.2 10^3/uL (0.0-0.2); ABSOLUTE EOSINOPHILS # (AUTO) 0.1 10^3/uL (0.0-0.6); ABSOLUTE LYMPHOCYTES (AUTO) 3.2 10^3/uL (0.5-4.7); ABSOLUTE MONOCYTES (AUTO) 1.5 10^3/uL (0.1-1.4); ABSOLUTE NEUT (AUTO) 13.5 10^3/uL (1.7-8.2); BASOPHILS % (AUTO) 0.8 % (0-2); EOSINOPHILS % (AUTO) 0.4 % (0-6); HEMATOCRIT 40.1 % (36.0-47.0); HEMOGLOBIN 13.1 g/dL (12.0-15.5); LYMPHOCYTES % (AUTO) 17.5 % (13-45); MEAN CORPUSCULAR HGB CONC 32.7 g/dL (32.0-36.0); MEAN CORPUSCULAR VOLUME 92 fl (80-97); MONOCYTES % (AUTO) 8.2 % (3-13); PLATELET COUNT 294 10^3/uL (150-450); RED BLOOD COUNT 4.36 10^6/uL (3.72-5.28); RED CELL DISTRIBUTION WIDTH 13.5 % (11.5-14.0); SEGMENTED NEUTROPHILS % (AUTO) 73.1 % (42-78); TOTAL CELLS COUNTED % (AUTO) 100 %; WHITE BLOOD COUNT 18.5 10^3/uL (4.0-10.5)
[2019-06-01 05:52] LABS: ANION GAP 7 (5-19); BLOOD UREA NITROGEN 18 mg/dL (7-20); CALCIUM 11.2 mg/dL (8.4-10.2); CARBON DIOXIDE 27 mmol/L (22-30); CHLORIDE 103 mmol/L (98-107); CHOLESTEROL 132.76 mg/dL (0-200); GLUCOSE 127 mg/dL (75-110); TRIGLYCERIDES 136 mg/dL (<150)
[2019-06-01] MEDS ORDERED: (PENDING PHARMACY ID) (Levothyroxine Sodium [Levothyroxine Sodium] 175 MCG) PO SCH (06:00)
[2019-06-01 06:03] LABS: DIRECT LDL 70 mg/dL (<100)
[2019-06-01] MEDS ORDERED: INFLUENZA QUAD (6MOS+) 2019-20 VAC 0.5 ML SYR IM ONE (08:00)
[2019-06-01] MEDS: ASPIRIN 81 MG TABLET, ENT COATED PO SCH (10:06)
[2019-06-01] MEDS: METOPROLOL SUCCINATE 50 MG TAB.SR.24H PO SCH ×2 (10:06→21:20)
[2019-06-01] MEDS: CLOPIDOGREL BISULFATE 75 MG TABLET PO SCH (10:06)
--- NOTE | 2019-06-01 11:41 | RADIOLOGY REPORT (SQ) ---
EXAM DESCRIPTION: MRI HEAD WITHOUT COMPLETED DATE/TIME: 06/01/2019 11:15 am REASON FOR STUDY: tia COMPARISON: 05/02/2019 TECHNIQUE: Multiplanar imaging includes non-contrasted T1, T2, FLAIR, and diffusion with ADC map seq uences. Images stored on PACS. LIMITATIONS: None. FINDINGS: ANATOMY: No anomalies. Normal vascular flow voids. Pituitary fossa normal. CSF SPACES: Normal in size and contour. No hemorrhage. CEREBRUM: Sulci and gyri normal in size and contour. Small lacunar infarction in the left thalamus. Normal white matter signal on FLAIR imaging. No evidence of hemorrhage, mass, or extraaxial fluid c ollection. POSTERIOR FOSSA: No signal alteration. No hemorrhage. No edema, masses or mass effect. Internal zaina tory canals, cerebello-pontine angles, mastoids normal. DIFFUSION IMAGING: Negative for acute or sub-acute infarction. ORBITS: No masses. Globes normal. PARANASAL SINUSES: No fluid levels. Mucosa normal. OTHER: No other significant finding. IMPRESSION: Mild chronic microvascular ischemia with no acute intracranial imaging findings. EVIDENCE OF ACUTE STROKE: NO. TECHNICAL DOCUMENTATION: JOB ID: [id number]- All Rights Reserved Reading location - IP/workstation name: [email or web address]
--- NOTE | 2019-06-01 16:14 | PDOC PROGRESS REPORT ---
Subjective Progress Note for:: 06/01/19 Subjective:: No adverse events overnight. No new complaints. She still has a little bit of thick tongue speech is not having too much trouble swallowing. She says her arm and leg weakness have gotten better but she can still notice a difference between before. Reason For Visit: CVA HYPERCALEMIA, PRIMARY HYPERPARATHYROID Physical Exam Vital Signs: Temp Pulse Resp BP Pulse Ox 97.3 F 61 16 126/68 H 91 L 06/01/19 08:41 06/01/19 14:00 06/01/19 08:41 06/01/19 08:41 06/01/19 08:41 Intake & Output 05/31/19 06/01/19 06/02/19 06:59 06:59 06:59 Intake Total 780 Output Total 925 Balance -145 Weight 81.647 kg 84.1 kg General appearance: PRESENT: no acute distress, cooperative, obese Respiratory exam: PRESENT: clear to auscultation rishabh, symmetrical, unlabored. ABSENT: accessory muscle use, chest wall tenderness, crackles, prolonged expiratory phas, rhonchi, tachypnea, wheezes Cardiovascular exam: PRESENT: RRR, +S1, +S2 Pulses: PRESENT: normal carotid pulses Vascular exam: PRESENT: normal capillary refill GI/Abdominal exam: PRESENT: normal bowel sounds, soft. ABSENT: distended, gua rding, rebound, tenderness Extremities exam: ABSENT: clubbing, pedal edema Musculoskeletal exam: PRESENT: normal inspection. ABSENT: deformity Neurological exam: PRESENT: alert, awake, oriented to person, oriented to place, oriented to time, oriented to situation. ABSENT: CN II-XII grossly intact - She has some left facial droop and some slurred speech Psychiatric exam: PRESENT: appropriate affect, normal mood Skin exam: PRESENT: dry, warm Results Laboratory Results: 06/01/19 05:12 06/01/19 05:12 06/01/19 06/01/19 05:12 05:12 WBC 18.5 H RBC 4.36 Hgb 13.1 Hct 40.1 MCV 92 MCH 30.0 MCHC 32.7 RDW 13.5 Plt Count 294 Seg Neutrophils % 73.1 Sodium 137.4 Potassium 4.0 Chloride 103 Carbon Dioxide 27 Anion Gap 7 BUN 18 Creatinine 0.55 Est GFR ( Amer) > 60 Glucose 127 H Calcium 11.2 H Triglycerides 136 Cholesterol 132.76 LDL Cholesterol Direct 70 VLDL Cholesterol 27.0 HDL Cholesterol 42 05/30/19 10 19:04 19:04 Creatine Kinase 42 CK-MB (CK-2) 0.36 Troponin I < 0.012 Impressions: Chest X-Ray 05/30/19 19:00 IMPRESSION: NO ACUTE RADIOGRAPHIC FINDING IN THE CHEST. Head CT 05/30/19 19:00 IMPRESSION: No acute intracranial event. EVIDENCE OF ACUTE STROKE: NO. Head CTA 05/30/19 22:59 IMPRESSION: No significant vascular abnormalities. CAROTID STENOSIS REFERENCE USING NASCET CRITERIA: % ICA stenosis = (1 - narrowest ICA diameter/diameter of distal cervical ICA) x 100. Mild - <50% stenosis. Moderate - 50-69% stenosis. Severe - 70-94% stenosis. Near occlusion - 95-99% stenosis. Occluded - 100% stenosis. Modified Barium Swallow 05/31/19 00:00 IMPRESSION: NO EVIDENCE OF PENETRATION OR ASPIRATION. PLEASE SEE SPEECH PATHOLOGIST REPORT FOR OTHER FINDINGS AND RECOMMENDATIONS. Head MRI 06/01/19 00:00 IMPRESSION: Mild chronic microvascular ischemia with no acute intracranial imaging findings. EVIDENCE OF ACUTE STROKE: NO. Assessment and Plan - Diagnosis (1) Acute CVA (cerebrovascular accident) Is this a current diagnosis for this admission?: Yes Plan: Did not show up on the MRI but she still behaving exactly like she has had a stroke, and she is had one before, a lacunar infarct and there is a possibility that it could have been missed on imaging. She is had some improvement of her symptoms but she still has some persistent facial droop and dysarthria. We are going to try to make sure all of her risk factors are modified to make sure that we get a recommendation from physical therapy about her. - Time Time Spent with patient: 15-24 minutes
[2019-06-01] MEDS: ATORVASTATIN CALCIUM 40 MG TABLET PO SCH (21:21)
[2019-06-02] MEDS: LEVOTHYROXINE SODIUM 0.075 MG TABLET PO SCH (05:33)
[2019-06-02] MEDS: LEVOTHYROXINE SODIUM 0.1 MG TABLET PO SCH (05:33)
[2019-06-02] MEDS: HEPARIN SOD (PORCINE) 5,000 UNIT/ML 1 ML VIAL SUBCUT SCH ×3 (05:33→21:19)
[2019-06-02] MEDS: CLOPIDOGREL BISULFATE 75 MG TABLET PO SCH (10:00)
[2019-06-02] MEDS: METOPROLOL SUCCINATE 50 MG TAB.SR.24H PO SCH ×2 (10:00→21:13)
[2019-06-02] MEDS: ASPIRIN 81 MG TABLET, ENT COATED PO SCH (10:00)
--- NOTE | 2019-06-02 13:40 | PDOC PROGRESS REPORT ---
Subjective Progress Note for:: 06/02/19 Subjective:: No adverse events overnight. No new complaints. Vital signs been stable. She says that her left arm does not feel as heavy as it did yesterday and she still has better strength in her left leg but she does not feel like is back to normal. She can tell she still has a little bit of difficulty with her speech. Reason For Visit: CVA HYPERCALEMIA, PRIMARY HYPERPARATHYROID Physical Exam Vital Signs: Temp Pulse Resp BP Pulse Ox 97.2 F 65 16 132/80 H 96 06/02/19 07:53 06/02/19 07:53 06/02/19 07:53 06/02/19 07:53 06/02/19 07:53 Intake & Output 06/01/19 06/02/19 06/03/19 06:59 06:59 06:59 Intake Total 780 1885 Output Total 925 Balance -145 1885 Weight 84.1 kg 83.2 kg General appearance: PRESENT: no acute distress, cooperative, obese Respiratory exam: PRESENT: clear to auscultation rishabh, symmetrical, unlabored. ABSENT: accessory muscle use, chest wall tenderness, crackles, prolonged expiratory phas, rhonchi, tachypnea, wheezes Cardiovascular exam: PRESENT: RRR, +S1, +S2 Pulses: PRESENT: normal carotid pulses Vascular exam: PRESENT: normal capillary refill GI/Abdominal exam: PRESENT: normal bowel sounds, soft. ABSENT: distended, guarding, rebound, tenderness Extremities exam: ABSENT: clubbing, pedal edema Musculoskeletal exam: PRESENT: normal inspection. ABSENT: deformity Neurological exam: PRESENT: alert, awake, oriented to person, oriented to place, oriented to time, oriented to situation. ABSENT: CN II-XII grossly intact - She has some left facial droop and some slurred speech Psychiatric exam: PRESENT: appropriate affect, normal mood Skin exam: PRESENT: dry, warm Results Laboratory Results: 06/01/19 05:12 06/01/19 05:12 05/30/19 05/30/19 19:04 19:04 Creatine Kinase 42 CK-MB (CK-2) 0.36 Troponin I < 0.012 Impressions: Chest X-Ray 05/30/19 19:00 IMPRESSION: NO ACUTE RADIOGRAPHIC FINDING IN THE CHEST. Head CT 05/30/19 19:00 IMPRESSION: No acute intracranial event. EVIDENCE OF ACUTE STROKE: NO. Head CTA 05/30/19 22:59 IMPRESSION: No significant vascular abnormalities. CAROTID STENOSIS REFERENCE USING NASCET CRITERIA: % ICA stenosis = (1 - narrowest ICA diameter/diameter of distal cervical ICA) x 100. Mild - <50% stenosis. Moderate - 50-69% stenosis. Severe - 70-94% stenosis. Near occlusion - 95-99% stenosis. Occluded - 100% stenosis. Modified Barium Swallow 05/31/19 00:00 IMPRESSION: NO EVIDENCE OF PENETRATION OR ASPIRATION. PLEASE SEE SPEECH PATHOLOGIST REPORT FOR OTHER FINDINGS AND RECOMMENDATIONS. Head MRI 06/01/19 00:00 IMPRESSION: Mild chronic microvascular ischemia with no acute intracranial imaging findings. EVIDENCE OF ACUTE STROKE: NO. Assessment and Plan - Diagnosis (1) Acute CVA (cerebrovascular accident) Is this a current diagnosis for this admission?: Yes Plan: Did not show up on the MRI but she still behaving exactly like she has had a stroke, and she is had one before, a lacunar infarct and there is a possibility that it could have been missed on imaging. She is had some improvement of her symptoms but she still has some persistent facial droop and dysarthria. We are going to try to make sure all of her risk factors are modified. She did pretty well for physical therapy but she has some room for improvement. Rather than going to a prison facility, the daughter wants to see if she can get into acute rehab at [facility]. - Time Time Spent with patient: 15-24 minutes
--- NOTE | 2019-06-02 18:58 | XCELERA REPORT ---
[address] [address] Transthoracic Echocardiogram Report Name: ALISON HENRY Age: 64 yrs Gender: Female : 1955 Patient Status: Inpatient Patient Location: [address] [place], [place] [address]A Study Date: 05/31/2019 11:15 AM Height: 65 in Weight: 180 lb BSA: 1.9 m2 Procedure: A two-dimensional transthoracic echocardiogram with color flow and Doppler was performed. Study Quality: Fair. Reason For Study: murmur, recurrent blt cva History: murmur, recurrent blt cva. Ordering Physician: ANICETO GARCIA Performed By: Park Rodriguez Interpretation Summary There is no obvious cardiac source of embolus noted on this transthoracic echocardiogram. Follow-up with a ROBBY is suggested if cardiac source is still suspected. A two-dimensional transthoracic echocardiogram with color flow and Doppler was performed. The left ventricle is normal in size. There is normal left ventricular wall thickness. The left ventricular ejection fraction is within normal limits. LV EF is 65% Doppler measurements suggest impaired left ventricular relaxation, which is associated with grade I/IV or mild diastolic dysfunction The left ventricular wall motion is normal. There is no thrombus. No ASD ,VSD , or PFO seen. The right ventricle is grossly normal size. The right ventricle is not well visualized secondary to technical limitations The right atrium is normal. The left atrial size is normal. There is no evidence of mitral valve prolapse. There is no vegetation seen on the mitral valve. There is no mitral valve stenosis. There is a trace amount of mitral regurgitation There is no aortic valvular vegetation. There is aortic sclerosis without aortic stenosis. There is no LVOT obstruction. No aortic regurgitation is present. There is no tricuspid stenosis. There is a trace amount of tricuspid regurgitation Right ventricular systolic pressure is normal. RVSP is 23 to 28 mm of Hg with a RA mean of 0 to 5. There is no pulmonic valvular stenosis. There is no pulmonic valvular regurgitation. The aortic root is normal size. The inferior vena cava appeared small and collapsed with respiration (RAP 0-5 mmHg) There is no pericardial effusion. There is no obvious cardiac source of embolus noted on this transthoracic echocardiogram. Follow-up with a ROBBY is suggested if cardiac source is still suspected MMode/2D Measurements & Calculations RVDd: 3.0 cm LVIDd: 4.4 cm FS: 39.1 % Ao root diam: 2.5 cm IVSd: 1.0 cm LVIDs: 2.7 cm EDV(Teich): Ao root area: LVPWd: 0.97 cm 86.9 ml 4.9 cm2 ESV(Teich): LA dimension: 3.1 cm 26.2 ml EF(Teich): 69.8 % LVLd ap4: 8.0 cm SV(MOD-sp4): EDV(MOD-sp4): 53.0 ml 75.0 ml LVLs ap4: 6.2 cm ESV(MOD-sp4): 22.0 ml EF(MOD-sp4): 70.7 % Doppler Measurements & Calculations MV E max lilia: MV P1/2t max lilia: Ao V2 max: LV V1 max P.8 cm/sec 92.8 cm/sec 170.6 cm/sec 5.2 mmHg MV A max lilia: MV P1/2t: 73.0 msec Ao max PG: LV V1 max: 101.2 cm/sec MVA(P1/2t): 3.0 cm2 11.6 mmHg 113.5 cm/sec MV E/A: 0.91 MV dec slope: 372.5 cm/sec2 MV dec time: 0.24 sec PA V2 max: TR max lilia: MV P1/2t-pr_phl: 87.4 cm/sec 238.9 cm/sec 73.0 msec PA max P.1 mmHgTR max P.8 mmHg Left Ventricle The left ventricle is normal in size. There is normal left ventricular wall thickness. The left ventricular ejection fraction is within normal limits. LV EF is 65%. Doppler measurements suggest impaired left ventricular relaxation, which is associated with grade I/IV or mild diastolic dysfunction. The left ventricular wall motion is normal. There is no thrombus. No ASD ,VSD , or PFO seen. Right Ventricle The right ventricle is grossly normal size. The right ventricle is not well visualized secondary to technical limitations. Atria The right atrium is normal. The left atrial size is normal. Mitral Valve There is no evidence of mitral valve prolapse. There is no vegetation seen on the mitral valve. There is no mitral valve stenosis. There is a trace amount of mitral regurgitation. Aortic Valve There is no aortic valvular vegetation. There is aortic sclerosis without aortic stenosis. There is no LVOT obstruction. No aortic regurgitation is present. Tricuspid Valve There is no tricuspid stenosis. There is a trace amount of tricuspid regurgitation. Right ventricular systolic pressure is normal. RVSP is 23 to 28 mm of Hg with a RA mean of 0 to 5. Pulmonic Valve There is no pulmonic valvular stenosis. There is no pulmonic valvular regurgitation. Great Vessels The aortic root is normal size. The inferior vena cava appeared small and collapsed with respiration (RAP 0-5 mmHg). Effusions There is no pericardial effusion. : ANICETO GARCIA Lakshmi
[2019-06-02] MEDS ORDERED: ACETAMINOPHEN 325 MG TABLET ONE (20:44)
[2019-06-02] MEDS: ACETAMINOPHEN 325 MG TABLET PO PRN (21:12)
[2019-06-02] MEDS: ATORVASTATIN CALCIUM 40 MG TABLET PO SCH (21:12)
[2019-06-03] MEDS: LEVOTHYROXINE SODIUM 0.075 MG TABLET PO SCH (07:15)
[2019-06-03] MEDS: HEPARIN SOD (PORCINE) 5,000 UNIT/ML 1 ML VIAL SUBCUT SCH ×3 (07:15→21:02)
[2019-06-03] MEDS: LEVOTHYROXINE SODIUM 0.1 MG TABLET PO SCH (07:15)
[2019-06-03] MEDS: ASPIRIN 81 MG TABLET, ENT COATED PO SCH (09:13)
[2019-06-03] MEDS: CLOPIDOGREL BISULFATE 75 MG TABLET PO SCH (09:13)
[2019-06-03] MEDS: METOPROLOL SUCCINATE 50 MG TAB.SR.24H PO SCH ×2 (09:13→21:02)
[2019-06-03] MEDS: DOCUSATE SODIUM 100 MG CAPSULE PO SCH ×2 (10:41→19:33)
--- NOTE | 2019-06-03 12:14 | PDOC PROGRESS REPORT ---
Subjective Progress Note for:: 06/03/19 Subjective:: No adverse events overnight. No new complaints. Vital signs been stable. She still has a little bit of left-sided facial numbness. She can tell she still has a little bit of difficulty with her speech. Reason For Visit: CVA HYPERCALEMIA, PRIMARY HYPERPARATHYROID Physical Exam Vital Signs: Temp Pulse Resp BP Pulse Ox 98.1 F 62 16 129/67 H 94 06/03/19 07:30 06/03/19 07:30 06/03/19 07:30 06/03/19 07:30 06/03/19 07:30 Intake & Output 06/02/19 06/03/19 06/04/19 06:59 06:59 06:59 Intake Total 1885 938 Balance 1885 938 Weight 83.2 kg 83.8 kg General appearance: PRESENT: no acute distress, cooperative, obese Respiratory exam: PRESENT: clear to auscultation rishabh, symmetrical, unlabored. ABSENT: accessory muscle use, chest wall tenderness, crackles, prolonged expiratory phas, rhonchi, tachypnea, wheezes Cardiovascular exam: PRESENT: RRR, +S1, +S2 Pulses: PRESENT: normal carotid pulses Vascular exam: PRESENT: normal capillary refill GI/Abdominal exam: PRESENT: normal bowel sounds, soft. ABSENT: distended, guarding, rebound, tenderness Extremities exam: ABSENT: clubbing, pedal edema Musculoskeletal exam: PRESENT: normal inspection. ABSENT: deformity Neurological exam: PRESENT: alert, awake, oriented to person, oriented to place, oriented to time, oriented to situation. ABSENT: CN II-XII grossly intact - She has some left facial droop and some slurred speech Psychiatric exam: PRESENT: appropriate affect, normal mood Skin exam: PRESENT: dry, warm Results Laboratory Results: 06/01/19 05:12 06/01/19 05:12 05/30/19 05/30/19 19:04 19:04 Creatine Kinase 42 CK-MB (CK-2) 0.36 Troponin I < 0.012 Impressions: Chest X-Ray 05/30/19 19:00 IMPRESSION: NO ACUTE RADIOGRAPHIC FINDING IN THE CHEST. Head CT 05/30/19 19:00 IMPRESSION: No acute intracranial event. EVIDENCE OF ACUTE STROKE: NO. Head CTA 05/30/19 22:59 IMPRESSION: No significant vascular abnormalities. CAROTID STENOSIS REFERENCE USING NASCET CRITERIA: % ICA stenosis = (1 - narrowest ICA diameter/diameter of distal cervical ICA) x 100. Mild - <50% stenosis. Moderate - 50-69% stenosis. Severe - 70-94% stenosis. Near occlusion - 95-99% stenosis. Occluded - 100% stenosis. Modified Barium Swallow 05/31/19 00:00 IMPRESSION: NO EVIDENCE OF PENETRATION OR ASPIRATION. PLEASE SEE SPEECH PATHOLOGIST REPORT FOR OTHER FINDINGS AND RECOMMENDATIONS. Head MRI 06/01/19 00:00 IMPRESSION: Mild chronic microvascular ischemia with no acute intracranial imaging findings. EVIDENCE OF ACUTE STROKE: NO. Assessment and Plan - Diagnosis (1) Acute CVA (cerebrovascular accident) Is this a current diagnosis for this admission?: Yes Plan: Did not show up on the MRI but she still behaving exactly like she has had a stroke, and she is had one before, a lacunar infarct and there is a possibility that it could have been missed on imaging. She is had some improvement of her symptoms but she still has some persistent facial droop and dysarthria. We are going to try to make sure all of her risk factors are modified. She did pretty well for physical therapy but she has some room for improvement. Rather than going to a detention facility, the daughter wants to see if she can get into acute rehab at [facility]. - Time Time Spent with patient: 15-24 minutes
[2019-06-03] MEDS: ACETAMINOPHEN 325 MG TABLET PO PRN (19:48)
[2019-06-03] MEDS: ATORVASTATIN CALCIUM 40 MG TABLET PO SCH (21:02)
[2019-06-04] MEDS: LEVOTHYROXINE SODIUM 0.1 MG TABLET PO SCH (05:07)
[2019-06-04] MEDS: HEPARIN SOD (PORCINE) 5,000 UNIT/ML 1 ML VIAL SUBCUT SCH ×3 (05:07→21:41)
[2019-06-04] MEDS: LEVOTHYROXINE SODIUM 0.075 MG TABLET PO SCH (05:07)
[2019-06-04] MEDS: ASPIRIN 81 MG TABLET, ENT COATED PO SCH (09:35)
[2019-06-04] MEDS: CLOPIDOGREL BISULFATE 75 MG TABLET PO SCH (09:35)
[2019-06-04] MEDS: DOCUSATE SODIUM 100 MG CAPSULE PO SCH ×2 (09:35→17:58)
[2019-06-04] MEDS: METOPROLOL SUCCINATE 50 MG TAB.SR.24H PO SCH ×2 (09:35→21:41)
--- NOTE | 2019-06-04 13:49 | PDOC PROGRESS REPORT ---
Subjective Progress Note for:: 06/04/19 Subjective:: The patient is sitting in the chair resting comfortably. Her mother is in the room and another visitor. She states that she is feeling better. There is still dysarthria. She still has tingling on the left side of her face. She still exhibits a left droop at the corner of her mouth. Her tongue does deviate slightly to the right. She still has weakness on the left. Per physical therapy's note she has a left foot drop and did walk quite a distance with contact-guard assist. She actually is in good spirits and we discussed the probability of going home tomorrow because she would not qualify for rehab but this level of function but would do very well with home health physical and speech therapies. Reason For Visit: CVA HYPERCALEMIA, PRIMARY HYPERPARATHYROID Physical Exam Vital Signs: Temp Pulse Resp BP Pulse Ox 97.3 F 63 16 102/63 96 06/03/19 23:12 06/04/19 07:00 06/03/19 23:12 06/04/19 01:07 06/03/19 23:12 Intake & Output 06/03/19 06/04/19 06/05/19 06:59 06:59 06:59 Intake Total 938 832 Balance 938 832 Weight 83.8 kg 85.1 kg General appearance: PRESENT: no acute distress, cooperative, well-developed Head exam: PRESENT: atraumatic, normocephalic Ear exam: PRESENT: normal external ear exam. ABSENT: bleeding, drainage Mouth exam: PRESENT: dry mucosa. ABSENT: tongue midline - Slight deviation to the right Teeth exam: ABSENT: dental tenderness, poor dentation Respiratory exam: PRESENT: clear to auscultation rishabh, symmetrical, unlabored. ABSENT: accessory muscle use, rales, rhonchi, tachypnea, wheezes Cardiovascular exam: PRESENT: RRR, +S1, +S2 GI/Abdominal exam: PRESENT: normal bowel sounds, soft. ABSENT: distended, tenderness Rectal exam: PRESENT: deferred Musculoskeletal exam: PRESENT: other - Still with some weakness on the left. As noted above physical therapy reports left foot drop. Patient feels his strength is improving consistently. Neurological exam: PRESENT: alert, awake, oriented to person, oriented to place, oriented to time, oriented to situation. ABSENT: CN II-XII grossly intact - Dysarthria, aphasic Psychiatric exam: PRESENT: appropriate affect, normal mood. ABSENT: agitated, anxious Focused psych exam: ABSENT: delusional, restlessness Skin exam: PRESENT: dry, normal color, warm. ABSENT: rash Results Laboratory Results: 06/01/19 05:12 06/01/19 05:12 05/30/19 05/30/19 19:04 19:04 Creatine Kinase 42 CK-MB (CK-2) 0.36 Troponin I < 0.012 Impressions: Chest X-Ray 05/30/19 19:00 IMPRESSION: NO ACUTE RADIOGRAPHIC FINDING IN THE CHEST. Head CT 05/30/19 19:00 IMPRESSION: No acute intracranial event. EVIDENCE OF ACUTE STROKE: NO. Head CTA 05/30/19 22:59 IMPRESSION: No significant vascular abnormalities. CAROTID STENOSIS REFERENCE USING NASCET CRITERIA: % ICA stenosis = (1 - narrowest ICA diameter/diameter of distal cervical ICA) x 100. Mild - <50% stenosis. Moderate - 50-69% stenosis. Severe - 70-94% stenosis. Near occlusion - 95-99% stenosis. Occluded - 100% stenosis. Modified Barium Swallow 05/31/19 00:00 IMPRESSION: NO EVIDENCE OF PENETRATION OR ASPIRATION. PLEASE SEE SPEECH PATHOLOGIST REPORT FOR OTHER FINDINGS AND RECOMMENDATIONS. Head MRI 06/01/19 00:00 IMPRESSION: Mild chronic microvascular ischemia with no acute intracranial imaging findings. EVIDENCE OF ACUTE STROKE: NO. Assessment and Plan - Diagnosis (1) Acute CVA (cerebrovascular accident) Is this a current diagnosis for this admission?: Yes Plan: 06/04/2019-patient is frustrated as this is not her for stroke. We discussed good blood pressure control. Her mother was quite emphatic that she will not be smoking anymore and will follow a better diet. The patient is on a good regimen for blood pressure control. She is on aspirin and Plavix. She is also on statin therapy. Consider increasing atorvastatin to 80 mg daily. (2) Dysarthria Is this a current diagnosis for this admission?: Yes Plan: 06/04/2019-the patient was seen by speech therapy. She has an effective swallow but loses liquids from the left side of her mouth. Exercises have been given. She still has obvious dysarthria and I have ordered speech therapy through home health as an outpatient. (3) Hypertension Qualifiers: Hypertension type: essential hypertension Qualified Code(s): I10 - Essential (primary) hypertension Is this a current diagnosis for this admission?: Yes Plan: 06/04/2019-the patient blood pressure is better than usual according to the patient. She is on her metoprolol. I have added back the losartan with parameters to hold for systolic blood pressure less than 110. Her blood pressure will likely increase as she increases her activity levels. (4) Hypothyroidism Qualifiers: Hypothyroidism type: unspecified Qualified Code(s): E03.9 - Hypothyroidism, unspecified Is this a current diagnosis for this admission?: Yes Plan: 06/04/2019-continue current levothyroxine dose. (5) Left leg weakness Is this a current diagnosis for this admission?: Yes Plan: 06/04/2019-see also physical therapy note. The patient did exhibit some left foot drop. She was, however, able to walk 150 feet yesterday and 300 feet the day before. She will need ongoing physical therapy with home health at discharge. - Plan Summary Summary: The patient is doing quite well. I explained that certain features of the stroke such as the dysarthria and tingling on the left side of the face may take quite a long time to resolve and some of this could be permanent. I have ordered home health with physical and speech therapies. The patient also needs a front wheel walker. Anticipate discharge tomorrow. - Time Time Spent with patient: 15-24 minutes Medications reviewed and adjusted accordingly: Yes Anticipated discharge: Home with Homehealth Within: within 24 hours
[2019-06-04] MEDS: ATORVASTATIN CALCIUM 40 MG TABLET PO SCH (21:41)
[2019-06-05] MEDS: HEPARIN SOD (PORCINE) 5,000 UNIT/ML 1 ML VIAL SUBCUT SCH (05:25)
[2019-06-05] MEDS: LEVOTHYROXINE SODIUM 0.075 MG TABLET PO SCH (05:25)
[2019-06-05] MEDS: LEVOTHYROXINE SODIUM 0.1 MG TABLET PO SCH (05:26)
--- NOTE | 2019-06-05 08:24 | PDOC DISCHARGE SUMMARY ---
Impression - Admit/DC Date/PCP Admission Date/Primary Care Provider: 05/31/19 02:20 WALESKA ARREDONDO MD Discharge Date: 06/05/19 - Discharge Diagnosis (1) Acute CVA (cerebrovascular accident) Is this a current diagnosis for this admission?: Yes (2) Dysarthria Is this a current diagnosis for this admission?: Yes (3) Hypertension Is this a current diagnosis for this admission?: Yes (4) Hypothyroidism Is this a current diagnosis for this admission?: Yes (5) Left leg weakness Is this a current diagnosis for this admission?: Yes - Assessment Summary: The patient is doing quite well. I explained that certain features of the stroke such as the dysarthria and tingling on the left side of the face may take quite a long time to resolve and some of this could be permanent. I have ordered home health with physical and speech therapies. The patient also needs a front wheel walker. Anticipate discharge tomorrow. - Additional Information Resuscitation Status: Full Code Discharge Diet: Cardiac Discharge Activity: Activity As Tolerated, Balance Activity w/Rest Referrals: TAMANNA CORONADO DO [ACTIVE STAFF] - 06/14/19 3:10 pm () WALESKA ARREDONDO MD [Primary Care Provider] - 06/12/19 3:00 pm (Follow-up within 1 week) Home Medications: Aspirin [Aspirin 81 mg Chewable Tablet] 81 mg PO DAILY 05/31/19 Atorvastatin Calcium [Lipitor 40 mg Tablet] 40 mg PO QHS 05/31/19 Clopidogrel Bisulfate [Plavix 75 mg Tablet] 75 mg PO DAILY 05/31/19 Ibuprofen [Motrin 800 mg Tablet] 800 mg PO Q8HP PRN 05/31/19 Levothyroxine Sodium 175 mcg PO Q6AM 05/31/19 Losartan Potassium [Cozaar 50 mg Tablet] 50 mg PO DAILY 05/31/19 Metoprolol Succinate [Toprol XL 100 mg Tablet] 100 mg PO Q12 05/31/19 Docusate Sodium [Colace 100 mg Capsule] 100 mg PO BID capsule 06/05/19 History of Present Illiness History of Present Illness: ALISON HENRY is a 64 year old female who presented to the emergency department on May 31. She has a history of stroke with residual right-sided weakness as well as hypothyroidism, hypertension and hypercalcemia. She noted 4 days of intermittent left leg heaviness. She reported palpitations as well as fullness and tingling of the left cheek and face. She also noted that she was coughing when swallowing. She exhibits symptoms of stroke and was referred to the hospitalist service for admission. Hospital Course Hospital Course: The patient had an unremarkable hospital course. Her blood pressure was well controlled. She is on antiplatelet therapy. Speech, occupational and physical therapies worked with the patient. The patient is able to walk with a rolling walker over 150 feet. The patient was anxious for discharge home. She was discharged today with home health services. Physical Exam Vital Signs: Temp Pulse Resp BP Pulse Ox 98.5 F 60 18 103/56 L 95 06/05/19 04:29 06/05/19 07:00 06/05/19 04:29 06/05/19 04:29 06/05/19 04:29 Intake & Output 06/04/19 06/05/19 06/06/19 06:59 06:59 06:59 Intake Total 832 960 Balance 832 960 Weight 85.1 kg 84.6 kg General appearance: PRESENT: no acute distress, cooperative, well-developed, other - Up walking around the room packing for discharge Head exam: PRESENT: atraumatic, normocephalic Mouth exam: PRESENT: moist. ABSENT: tongue midline - Slight deviation to the right Respiratory exam: PRESENT: clear to auscultation rishabh, symmetrical, unlabored. ABSENT: accessory muscle use, rales, rhonchi, tachypnea, wheezes Cardiovascular exam: PRESENT: RRR, +S1, +S2 GI/Abdominal exam: PRESENT: normal bowel sounds, soft. ABSENT: distended, tenderness Rectal exam: PRESENT: deferred Gentrourinary exam: ABSENT: indwelling catheter Extremities exam: ABSENT: pedal edema, tenderness Musculoskeletal exam: PRESENT: ambulatory, normal inspection Neurological exam: PRESENT: alert, awake, oriented to person, oriented to place, oriented to time, oriented to situation, motor sensory deficit - Left leg weakness. Left facial droop. Dysarthria. Psychiatric exam: PRESENT: appropriate affect. ABSENT: agitated, anxious Focused psych exam: ABSENT: delusional, restlessness Skin exam: PRESENT: dry, normal color, warm. ABSENT: rash Results Laboratory Results: WBC 18.5 10^3/uL (4.0-10.5) H 06/01/19 05:12 RBC 4.36 10^6/uL (3.72-5.28) 06/01/19 05:12 Hgb 13.1 g/dL (12.0-15.5) 06/01/19 05:12 Hct 40.1 % (36.0-47.0) 06/01/19 05:12 MCV 92 fl (80-97) 06/01/19 05:12 MCH 30.0 pg (27.0-33.4) 06/01/19 05:12 MCHC 32.7 g/dL (32.0-36.0) 06/01/19 05:12 RDW 13.5 % (11.5-14.0) 06/01/19 05:12 Plt Count 294 10^3/uL (150-450) 06/01/19 05:12 Lymph % (Auto) 17.5 % (13-45) 06/01/19 05:12 [place] % (Auto) 8.2 % (3-13) 06/01/19 05:12 Eos % (Auto) 0.4 % (0-6) 06/01/19 05:12 Baso % (Auto) 0.8 % (0-2) 06/01/19 05:12 Absolute Neuts (auto) 13.5 10^3/uL (1.7-8.2) H 06/01/19 05:12 Absolute Lymphs (auto) 3.2 10^3/uL (0.5-4.7) 06/01/19 05:12 Absolute Monos (auto) 1.5 10^3/uL (0.1-1.4) H 06/01/19 05:12 Absolute Eos (auto) 0.1 10^3/uL (0.0-0.6) 06/01/19 05:12 Absolute Basos (auto) 0.2 10^3/uL (0.0-0.2) 06/01/19 05:12 Seg Neutrophils % 73.1 % (42-78) 06/01/19 05:12 PT 12.3 SEC (11.4-15.4) 05/30/19 19:04 INR 0.92 05/30/19 19:04 APTT 30.3 SEC (23.5-35.8) 05/30/19 19:04 Sodium 137.4 mmol/L (137-145) 06/01/19 05:12 Potassium 4.0 mmol/L (3.6-5.0) 06/01/19 05:12 Chloride 103 mmol/L (98-107) 06/01/19 05:12 Carbon Dioxide 27 mmol/L (22-30) 06/01/19 05:12 Anion Gap 7 (5-19) 06/01/19 05:12 BUN 18 mg/dL (7-20) 06/01/19 05:12 Creatinine 0.55 mg/dL (0.52-1.25) 06/01/19 05:12 Est GFR ( Amer) > 60 (>60) 06/01/19 05:12 Est GFR (MDRD) Non-Af > 60 (>60) 06/01/19 05:12 Glucose 127 mg/dL (75-110) H 06/01/19 05:12 Hemoglobin A1c % 6.4 % (4.7-6.0) H 06/01/19 05:12 Calcium 11.2 mg/dL (8.4-10.2) H 06/01/19 05:12 Total Bilirubin 0.4 mg/dL (0.2-1.3) 05/30/19 19:04 Direct Bilirubin 0.1 mg/dL (0.0-0.4) 05/30/19 19:04 Neonat Total Bilirubin Not Reportable 05/30/19 19:04 Neonat Direct Bilirubin Not Reportable 05/30/19 19:04 Neonat Indirect Bili Not Reportable 05/30/19 19:04 AST 25 U/L (14-36) 05/30/19 19:04 ALT 28 U/L (<35) 05/30/19 19:04 Alkaline Phosphatase 103 U/L (38-126) 05/30/19 19:04 Creatine Kinase 42 U/L (30-135) 05/30/19 19:04 CK-MB (CK-2) 0.36 ng/mL (<4.55) 05/30/19 19:04 Troponin I < 0.012 ng/mL 05/30/19 19:04 Total Protein 6.9 g/dL (6.3-8.2) 05/30/19 19:04 Albumin 4.2 g/dL (3.5-5.0) 05/30/19 19:04 Triglycerides 136 mg/dL (<150) 06/01/19 05:12 Cholesterol 132.76 mg/dL (0-200) 06/01/19 05:12 LDL Cholesterol Direct 70 mg/dL (<100) 06/01/19 05:12 VLDL Cholesterol 27.0 mg/dL (10-31) 06/01/19 05:12 HDL Cholesterol 42 mg/dL (>40) 06/01/19 05:12 Vitamin D 25-Hydroxy 19.6 ng/mL (14.7-68.3) 05/30/19 19:04 05/30/19 19:04 CK-MB (CK-2) 0.36 Troponin I < 0.012 Impressions: Chest X-Ray 05/30/19 19:00 IMPRESSION: NO ACUTE RADIOGRAPHIC FINDING IN THE CHEST. Head CT 05/30/19 19:00 IMPRESSION: No acute intracranial event. EVIDENCE OF ACUTE STROKE: NO. Head CTA 05/30/19 22:59 IMPRESSION: No significant vascular abnormalities. CAROTID STENOSIS REFERENCE USING NASCET CRITERIA: % ICA stenosis = (1 - narrowest ICA diameter/diameter of distal cervical ICA) x 100. Mild - <50% stenosis. Moderate - 50-69% stenosis. Severe - 70-94% stenosis. Near occlusion - 95-99% stenosis. Occluded - 100% stenosis. Modified Barium Swallow 05/31/19 00:00 IMPRESSION: NO EVIDENCE OF PENETRATION OR ASPIRATION. PLEASE SEE SPEECH PATHOLOGIST REPORT FOR OTHER FINDINGS AND RECOMMENDATIONS. Head MRI 06/01/19 00:00 IMPRESSION: Mild chronic microvascular ischemia with no acute intracranial imaging findings. EVIDENCE OF ACUTE STROKE: NO. Plan Health Concerns: Patient needs to maintain good blood pressure control. She should check her pressure at home regularly. Continue therapy modalities at home to maximize stroke recovery. Plan of Treatment: The patient will discharge to home with home health services. This will include physical, occupational and speech therapies. DME equipment including a front wheeled walker prescribed as well. Goals: To maximize recovery from stroke including strength, gait and balance as well as speech and swallowing. Time Spent: Greater than 30 Minutes Stroke Is this a Stroke Patient?: Yes Stroke Pt being discharged on Anti-thrombolytic therapy?: Yes Reason(s) for not prescribing Anti-thrombolytic therapy:: Not indicated Stroke Pt being discharged on Anti-coagulation therapy?: No Reason(s) for not prescribing Anti-coagulation therapy:: Not indicated Stroke Pt being discharged on Statins?: Yes Acute Heart Failure - Is this a Heart Failure Patient?: No
[2019-06-05 09:13] VITALS: BP 102/63
[2019-06-05] MEDS ORDERED: LOSARTAN POTASSIUM 50 MG TABLET PO SCH ×2 (10:00)
== END 2019-06-05 09:45 | disposition home health service (06) | DRG 66 ==
LOC: ER 18:49 → EH 05-31 02:20 → 3W 05-31 08:04
PROVIDERS: ADMIT Internal Medicine; ATTEND Internal Medicine
PROC: 3E0234Z Introduction of Serum, Toxoid and Vaccine into Muscle, Percutaneous Approach (ICD-10-PCS; principal; 2019-06-05)
DX: I63.9 Cerebral infarction, unspecified (principal); R29.810 Facial weakness; R47.1 Dysarthria and anarthria; E83.52 Hypercalcemia; I48.0 Paroxysmal atrial fibrillation; E03.9 Hypothyroidism, unspecified; I10 Essential (primary) hypertension; Z79.01 Long term (current) use of anticoagulants; Z79.82 Long term (current) use of aspirin; Z23 Encounter for immunization
CPT/HCPCS: 36415; 70450; 70496; 70551; 71045; 74230; 80048; 80053; 80061; 82306; 82550; 82553; 83036; 84484; 85025; 85610; 85730; 90686; 93005; 93010; 93306; 96374; 96375; 96376; 99285; J1200; J1644; J2405; J2930; J3010; J3490; S0028

== ENCOUNTER 2019-10-19 12:43 | Emergency (ER) | payer MEDICARE, OTHER ==
--- NOTE | 2019-10-19 12:51 | ER Document Report ---
ED Medical Screen (RME) - General Chief Complaint: S/S of Possible Stroke Stated Complaint: POSSIBLE STROKE Time Seen by Provider: 10/19/19 12:48 Primary Care Provider: WALESKA ARREDONDO MD [Primary Care Provider] - Follow up as needed Notes: HPI: 64-year-old female with history of multiple prior strokes most recently June 2019 brought in for evaluation of sudden onset of left facial droop, slurred speech, difficulty speaking that occurred approximately 20 to 30 minutes ago. Patient reports slight chest pain just prior to onset of symptoms. Complains of mild headache I have greeted and performed a rapid initial assessment of this patient. A comprehensive ED assessment and evaluation of the patient, analysis of test results and completion of the medical decision making process will be conducted by additional ED providers PHYSICAL EXAMINATION: GENERAL: Well-appearing, well-nourished and in no acute distress. HEAD: Atraumatic, normocephalic. EYES: sclera anicteric, conjunctiva are normal. ENT: Moist mucous membranes. NECK: Normal range of motion LUNGS: Normal work of breathing, clear to auscultation HEART: 2+ radial pulses bilaterally, regular rate and rhythm ABD: limited by positioning for exam in triage. EXTREMITIES: no pitting or edema. No cyanosis. NEUROLOGICAL: Left facial droop is visible, sensation appears intact forehead cheek and mandible. No specific unilateral weakness upper or lower extremities on exam PSYCH: Normal mood, normal affect. SKIN: Warm, Dry, normal turgor, no rashes or lesions noted. TRAVEL OUTSIDE OF THE [place] IN LAST 30 DAYS: No - Related Data Allergies/Adverse Reactions: codeine Allergy (Verified 06/08/19 09:18) ivp dye Allergy (Uncoded 06/08/19 09:18) Past Medical History - Past Medical History Cardiac Medical History: Reports: Hx Hypercholesterolemia, Hx Hypertension Neurological Medical History: Denies: Hx Cerebrovascular Accident - History of TIAs x5, the most recent being about a year and a half ago. Renal/ Medical History: Reports: Hx Kidney Stones. Denies: Hx Peritoneal Dialysis Past Surgical History: Reports: Hx Appendectomy, Hx Cholecystectomy, Hx Hysterectomy, Hx Orthopedic Surgery - Rt rotator cuff, Hx Tonsillectomy Physical Exam - Vital signs Vitals: Temp Pulse Resp BP 97.3 F 102 H 20 190/106 H 10/19/19 12:44 10/19/19 12:44 10/19/19 12:44 10/19/19 12:44 Course - Vital Signs Vital signs: Temp Pulse Resp BP Pulse Ox 97.3 F 102 H 20 190/106 H 10/19/19 12:44 10/19/19 12:44 10/19/19 12:44 10/19/19 12:44 Doctor's Discharge - Discharge Referrals: WALESKA ARREDONDO MD [Primary Care Provider] - Follow up as needed
[2019-10-19] MEDS ORDERED: LABETALOL HCL INJ 20 MG/4 ML DISP.SYRIN IV ONE (13:16)
[2019-10-19] MEDS ORDERED: NICARDIPINE HCL RTU, ISO-OS 20 MG/200 ML RTUINJ IV PRN (13:16)
--- NOTE | 2019-10-19 13:17 | RADIOLOGY REPORT (SQ) ---
EXAM DESCRIPTION: CHEST SINGLE VIEW COMPLETED DATE/TIME: 10/19/2019 1:02 pm REASON FOR STUDY: stroke symptoms COMPARISON: 05/30/2019 EXAM PARAMETERS: NUMBER OF VIEWS: One view. TECHNIQUE: Single frontal radiographic view of the chest acquired. RADIATION DOSE: NA LIMITATIONS: None. FINDINGS: LUNGS AND PLEURA: No opacities, masses or pneumothorax. No pleural effusion. MEDIASTINUM AND HILAR STRUCTURES: No masses. Contour normal. HEART AND VASCULAR STRUCTURES: Heart normal in size. Normal vasculature. BONES: No acute findings. HARDWARE: None in the chest. OTHER: No other significant finding. IMPRESSION: NO ACUTE RADIOGRAPHIC FINDING IN THE CHEST. TECHNICAL DOCUMENTATION: JOB ID: [id number] 2010 [employer]- All Rights Reserved Reading location - IP/workstation name: [email or web address]
[2019-10-19] MEDS ORDERED: METHYLPREDNISOLONE INJ 125 MG/2 ML SDV IV ONE (13:18)
[2019-10-19 13:21] LABS: ABSOLUTE BASOPHILS # (AUTO) 0.1 10^3/uL (0.0-0.2); ABSOLUTE EOSINOPHILS # (AUTO) 0.3 10^3/uL (0.0-0.6); ABSOLUTE MONOCYTES (AUTO) 0.6 10^3/uL (0.1-1.4); ABSOLUTE NEUT (AUTO) 5.7 10^3/uL (1.7-8.2); BASOPHILS % (AUTO) 1.2 % (0-2); EOSINOPHILS % (AUTO) 2.8 % (0-6); HEMATOCRIT 41.9 % (36.0-47.0); LYMPHOCYTES % (AUTO) 31.3 % (13-45); MEAN CORPUSCULAR HEMOGLOBIN 29.3 pg (27.0-33.4); MEAN CORPUSCULAR HGB CONC 33.3 g/dL (32.0-36.0); MEAN CORPUSCULAR VOLUME 88 fl (80-97); MONOCYTES % (AUTO) 6.5 % (3-13); PLATELET COUNT 282 10^3/uL (150-450); RED BLOOD COUNT 4.76 10^6/uL (3.72-5.28); RED CELL DISTRIBUTION WIDTH 13.7 % (11.5-14.0); SEGMENTED NEUTROPHILS % (AUTO) 58.2 % (42-78); TOTAL CELLS COUNTED % (AUTO) 100 %; WHITE BLOOD COUNT 9.7 10^3/uL (4.0-10.5)
[2019-10-19 13:23] LABS: INTERNATIONAL RATION (INR) 0.97
[2019-10-19 13:24] LABS: PARTIAL THROMBOPLASTIN TIME 32.1 SEC (23.5-35.8)
[2019-10-19 13:26] LABS: PROTHROMBIN TIME 12.9 SEC (11.4-15.4)
--- NOTE | 2019-10-19 13:27 | ER Document Report ---
ED General - General Chief Complaint: S/S of Possible Stroke Stated Complaint: POSSIBLE STROKE Time Seen by Provider: 10/19/19 12:48 Primary Care Provider: WALESKA ARREDONDO MD [Primary Care Provider] - Follow up as needed Mode of Arrival: Stretcher Information source: Patient, Relative - History from sister Daria Notes: This case was discussed with both Daria sister who works in this hospital and also with patient who is a 64-year-old female with acute onset 30 minutes prior to arrival of right-sided weakness and garbled speech. She last had a CVA and May and June and multiple TIAs in the past. Patient is on calcium haley nicardipine. Daria reports that all female members of the family have Zeenat's thyroiditis. Today patient had right-sided weakness which is different from her CVA /TIA symptoms from last year. Radiologist Tito called from office to report no obvious lesions noted at this time on her CT of head TRAVEL OUTSIDE OF THE [place] IN LAST 30 DAYS: No - HPI Onset: Just prior to arrival Onset/Duration: Sudden Quality of pain: No pain Severity: Mild Pain Level: 1 Associated symptoms: Weakness Exacerbated by: Movement - Patient was unable to stand while in CT because of weakness of her right leg right hand arm; patient reports her right arm feels tired she has chronic left sided weakness from prior CVA Relieved by: Denies Similar symptoms previously: Yes Recently seen / treated by doctor: Yes - Related Data Allergies/Adverse Reactions: codeine Allergy (Verified 10/19/19 15:23) ivp dye Allergy (Uncoded 10/19/19 15:23) Past Medical History - General Information source: Patient, Relative - Social History Smoking Status: Current Every Day Smoker Cigarette use (# per day): Yes Chew tobacco use (# tins/day): No Smoking Education Provided: Yes Frequency of alcohol use: None Drug Abuse: None Lives with: Family Family History: CVA, Hypertension, Thyroid Disfunction Patient has suicidal ideation: No Patient has homicidal ideation: No - Past Medical History Cardiac Medical History: Reports: Hx Hypercholesterolemia, Hx Hypertension Neurological Medical History: Denies: Hx Cerebrovascular Accident - History of TIAs x5, the most recent being about a year and a half ago. Renal/ Medical History: Reports: Hx Kidney Stones. Denies: Hx Peritoneal Di alysis Past Surgical History: Reports: Hx Appendectomy, Hx Cholecystectomy, Hx Hysterectomy, Hx Orthopedic Surgery - Rt rotator cuff, Hx Tonsillectomy Review of Systems - Review of Systems Constitutional: No symptoms reported EENT: See HPI, Other - No difficulty swallowing but has garbled speech understandable however Cardiovascular: No symptoms reported Respiratory: No symptoms reported Gastrointestinal: No symptoms reported Genitourinary: No symptoms reported Female Genitourinary: No symptoms reported Musculoskeletal: See HPI, Muscle stiffness Skin: No symptoms reported Hematologic/Lymphatic: No symptoms reported Neurological/Psychological: See HPI, Weakness, Gait changes, Loss of power, Speech impairment Physical Exam - Vital signs Vitals: Temp Pulse Resp BP 97.3 F 102 H 20 190/106 H 10/19/19 12:44 10/19/19 12:44 10/19/19 12:44 10/19/19 12:44 Course - Vital Signs Vital signs: Temp Pulse Resp BP Pulse Ox 97.3 F 79 16 161/88 H 93 10/19/19 12:44 10/19/19 18:00 10/19/19 18:01 10/19/19 18:01 10/19/19 18:01 - Laboratory Result Diagrams: 10/19/19 13:07 10/19/19 13:07 Laboratory results interpreted by me: 10/19/19 10/19/19 13:07 13:07 Creatinine 0.47 L Calcium 11.0 H TSH 11.30 H - Diagnostic Test Radiology reviewed: Reports reviewed - EKG Interpretation by [place] EKG shows normal: Sinus rhythm Critical Care Note - Critical Care Note Total time excluding time spent on procedures (mins): 90 Comments: This case was discussed with the neurologist at [facility] at 1410/actually I called transfer center and he was unavailable.Dr. Ely. He advised no tPA. I again called at 1818 for reassessment of patient. Around 1814 patient began to have symptoms of increased left-sided headache and more disorientation and left-sided facial numbness. Patient is moving her right arm and right leg with good strength and sensation full pulses CTA was negative for any plaque or stenosis but positive for tortuous bilateral carotids CTA of head was within normal limits. Sister was requesting transfer to [facility]; I discussed this case again with Dr. Jones and he advises transfer to [facility] with a medical group. I spoke with Dr. Khoury at [facility] and he accepts the patient and this was through Abi the transfer center vocalist. Discharge - Discharge Clinical Impression: Acute right-sided weakness, TIA (transient ischemic attack), Acute CVA (cerebrovascular accident), Thyroid disease, Hypercalcemia Hypertension Qualifiers: Hypertension type: unspecified Qualified Code(s): I10 - Essential (primary) hypertension Hypothyroidism Qualifiers: Hypothyroidism type: due to Zeenat's thyroiditis Qualified Code(s): E03.8 - Other specified hypothyroidism Condition: Fair Disposition: [facility] Referrals: WALESKA ARREDONDO MD [Primary Care Provider] - Follow up as needed
--- NOTE | 2019-10-19 13:27 | RADIOLOGY REPORT (SQ) ---
EXAM DESCRIPTION: CT HEAD WITHOUT COMPLETED DATE/TIME: 10/19/2019 1:12 pm REASON FOR STUDY: stroke symptoms COMPARISON: None. TECHNIQUE: Axial images acquired through the brain without intravenous contrast. Images reviewed wi th bone, brain and subdural windows. Additional sagittal and coronal reconstructions were generated. Images stored on PACS. All CT scanners at this facility use dose modulation, iterative reconstruction, and/or weight based d osing when appropriate to reduce radiation dose to as low as reasonably achievable (ALARA). [facility]: Dose Right [facility]: CareDose [facility]: Dose Right [facility]: Teradose 4D [facility]: [facility] RADIATION DOSE: CT Rad equipment meets quality standard of care and radiation dose reduction techniq ues were employed. CTDIvol: 53.2 mGy. DLP: 1017 mGy-cm. mGy. LIMITATIONS: None. FINDINGS: VENTRICLES: Normal size and contour. CEREBRUM: No masses. No hemorrhage. No midline shift. No evidence for acute infarction. Normal gra y/white matter differentiation. No areas of low density in the white matter. CEREBELLUM: No masses. No hemorrhage. No alteration of density. No evidence for acute infarction. EXTRAAXIAL SPACES: No fluid collections. No masses. ORBITS AND GLOBE: No intra- or extraconal masses. Normal contour of globe without masses. CALVARIUM: No fracture. PARANASAL SINUSES: No fluid or mucosal thickening. SOFT TISSUES: No mass or hematoma. OTHER: No other significant finding. IMPRESSION: No evidence of intracranial hemorrhage, large vascular territory infarct or other acute intracranial process. Findings were reported to Dr. Narvaez at 1321 hours on 10/19/2019 EVIDENCE OF ACUTE STROKE: NO. COMMENT: Quality ID # 436: Final reports with documentation of one or more dose reduction techniques (e.g., Automated exposure control, adjustment of the mA and/or kV according to patient size, use of iterative reconstruction technique) TECHNICAL DOCUMENTATION: JOB ID: [id number] 2010 [employer]- All Rights Reserved Reading location - IP/workstation name: [email or web address]
[2019-10-19 13:39] LABS: ALBUMIN 4.2 g/dL (3.5-5.0); ALKALINE PHOSPHATASE 111 U/L (38-126); ANION GAP 8 (5-19); ASPARTATE AMINO TRANSFERASE 24 U/L (14-36); BILIRUBIN,TOTAL 0.5 mg/dL (0.2-1.3); BLOOD UREA NITROGEN 12 mg/dL (7-20); CARBON DIOXIDE 26 mmol/L (22-30); CHLORIDE 105 mmol/L (98-107); CREATINE KINASE 63 U/L (30-135); GLUCOSE 110 mg/dL (75-110); POTASSIUM 4.1 mmol/L (3.6-5.0); TOTAL PROTEIN 7.3 g/dL (6.3-8.2)
[2019-10-19 13:55] LABS: TROPONIN I < 0.012 ng/mL
[2019-10-19] MEDS ORDERED: FAMOTIDINE INJ/PF 20 MG/2 ML SDV IV ONE (14:38)
[2019-10-19] MEDS ORDERED: DIPHENHYDRAMINE HCL 50 MG/ML VIAL IV ONE (14:39)
[2019-10-19] MEDS ORDERED: DEXAMETHASONE SOD PHOS INJ 10 MG/1 ML VIAL IV ONE (14:55)
--- NOTE | 2019-10-19 16:28 | RADIOLOGY REPORT (SQ) ---
EXAM DESCRIPTION: CTA HEAD COMPLETED DATE/TIME: 10/19/2019 4:08 pm REASON FOR STUDY: cva COMPARISON: None. TECHNIQUE: Post IV contrast scanning, thin section axial imaging through the brain to evaluate the a rterial structures. Source and MIP images are saved and reviewed on PACS. Advanced 3D imaging as volume-rendering, MIPs, SSD performed? yes All CT scanners at this facility use dose modulation, iterative reconstruction, and/or weight based d osing when appropriate to reduce radiation dose to as low as reasonably achievable (ALARA). [facility]: Dose Right [facility]: CareDose [facility]: Dose Right [facility]: Teradose 4D [facility]: [employer] CONTRAST TYPE AND DOSE: contrast/concentration: Isovue 300.00 mg/ml; Total Contrast Delivered: 70.0 ml; Total Saline Delivered: 75.0 ml RENAL FUNCTION: BUN 12, creatinine 0.47 LIMITATIONS: None. FINDINGS: [place]: The anterior, middle, posterior cerebral arteries are all patent. No ev idence of aneurysm or focal stenosis. POSTERIOR CIRCULATION: The distal vertebral arteries are patent as is the basilar artery. No aneurysm . BRAIN: No gross enhancing lesions as visualized. The superior cerebral hemispheres are not included in the field of view. BONES: Intact as visualized. SINUSES: No fluid or mucosal thickening. OTHER: No other significant finding. IMPRESSION: NO CTA EVIDENCE OF STENOSIS OR ANEURYSM OF THE [place]. TECHNICAL DOCUMENTATION: JOB ID: [id number] Quality ID # [id number]: Final reports with documentation of one or more dose reduction techniques (e.g., Au tomated exposure control, adjustment of the mA and/or kV according to patient size, use of iterative reconstruction technique) 2010 [employer]- All Rights Reserved Reading location - IP/workstation name: [email or web address]
--- NOTE | 2019-10-19 16:29 | RADIOLOGY REPORT (SQ) ---
EXAM DESCRIPTION: CTA NECK COMPLETED DATE/TIME: 10/19/2019 4:08 pm REASON FOR STUDY: cva COMPARISON: None. TECHNIQUE: Axial dynamic scanning technique with dynamic contrast enhancement through the extra-crayon grader nial carotid and vertebral arteries. Multiplanar reconstruction. 3-D MIPS and Volume-rendered imag es acquired at the workstation and saved to PACS. Images are reviewed in soft tissue, bone, lung w indows. All CT scanners at this facility use dose modulation, iterative reconstruction, and/or weight based d osing when appropriate to reduce radiation dose to as low as reasonably achievable (ALARA). [facility]: Dose Right [facility]: CareDose [facility]: Dose Right [facility]: Teradose 4D [facility]: [employer] CONTRAST TYPE AND DOSE: 100 mL Omnipaque 350 RENAL FUNCTION: BUN 12, creatinine 0.47 LIMITATIONS: None. FINDINGS: AORTIC ARCH: Normal three-vessel origin. Bilateral subclavian arteries are patent. No d issection. RIGHT CAROTIDS: Patent common, internal and external carotid arteries without suggestion of significa nt stenosis or irregular plaque. No dissection. Right internal carotid artery is tortuous. RIGHT VERTEBRAL: Patent. No dissection. LEFT CAROTIDS: Patent common, internal and external carotid arteries without suggestion of significan t stenosis or irregular plaque. No dissection. Left internal carotid artery is tortuous. LEFT VERTEBRAL: Patent. No dissection. OTHER: No other significant finding. OTHER: 3-D reconstructions confirm findings. IMPRESSION: NORMAL CTA OF THE EXTRA-CRANIAL CAROTID AND VERTEBRAL ARTERIES. COMMENT: Quality ID #[id number]: Measurements of distal internal carotid diameter were used as the denomina tor for stenosis measurement. TECHNICAL DOCUMENTATION: JOB ID: [id number] Quality ID # 436: Final reports with documentation of one or more dose reduction techniques (e.g., Au tomated exposure control, adjustment of the mA and/or kV according to patient size, use of iterative reconstruction technique) 2010 [employer]- All Rights Reserved Reading location - IP/workstation name: [email or web address]
[2019-10-19] MEDS ORDERED: KETOROLAC TROMETHAMINE INJ/PF 30 MG/1 ML SDV IV ONE (18:28)
[2019-10-19] MEDS ORDERED: ONDANSETRON HCL INJ/PF 4 MG/2 ML SDV IV ONE (18:28)
[2019-10-20] MEDS ORDERED: KETOROLAC TROMETHAMINE INJ/PF 30 MG/1 ML SDV IV ONE ×2 (00:25→10:20)
--- NOTE | 2019-10-20 01:11 | EKG REPORT ---
SEVERITY:- NORMAL ECG - SINUS RHYTHM : Confirmed by: Karena Haley MD 20-Oct-2019 01:11:13
[2019-10-20] MEDS ORDERED: ACETAMINOPHEN 650 MG SUPP.RECT PR ONE (10:21)
[2019-10-20] MEDS ORDERED: ONDANSETRON HCL INJ/PF 4 MG/2 ML SDV IV ONE (17:40)
[2019-10-21 08:56] LABS: ABSOLUTE BASOPHILS # (AUTO) 0.1 10^3/uL (0.0-0.2); ABSOLUTE EOSINOPHILS # (AUTO) 0.1 10^3/uL (0.0-0.6); ABSOLUTE LYMPHOCYTES (AUTO) 3.7 10^3/uL (0.5-4.7); ABSOLUTE MONOCYTES (AUTO) 0.7 10^3/uL (0.1-1.4); ABSOLUTE NEUT (AUTO) 9.4 10^3/uL (1.7-8.2); BASOPHILS % (AUTO) 0.8 % (0-2); EOSINOPHILS % (AUTO) 0.6 % (0-6); HEMATOCRIT 38.3 % (36.0-47.0); HEMOGLOBIN 12.6 g/dL (12.0-15.5); LYMPHOCYTES % (AUTO) 26.4 % (13-45); MEAN CORPUSCULAR HEMOGLOBIN 29.3 pg (27.0-33.4); MEAN CORPUSCULAR HGB CONC 32.8 g/dL (32.0-36.0); MEAN CORPUSCULAR VOLUME 89 fl (80-97); MONOCYTES % (AUTO) 5.1 % (3-13); PLATELET COUNT 278 10^3/uL (150-450); RED BLOOD COUNT 4.29 10^6/uL (3.72-5.28); RED CELL DISTRIBUTION WIDTH 13.9 % (11.5-14.0); SEGMENTED NEUTROPHILS % (AUTO) 67.1 % (42-78); TOTAL CELLS COUNTED % (AUTO) 100 %; WHITE BLOOD COUNT 14.1 10^3/uL (4.0-10.5)
[2019-10-21] MEDS ORDERED: IBUPROFEN 800 MG TABLET PO PRN (08:57)
[2019-10-21] MEDS ORDERED: (PENDING PHARMACY ID) (Levothyroxine Sodium [Levothyroxine Sodium] 175 MCG) PO SCH (09:00)
[2019-10-21 09:13] LABS: ALBUMIN 3.8 g/dL (3.5-5.0); ALKALINE PHOSPHATASE 78 U/L (38-126); ASPARTATE AMINO TRANSFERASE 19 U/L (14-36); BILIRUBIN,TOTAL 0.3 mg/dL (0.2-1.3); BLOOD UREA NITROGEN 22 mg/dL (7-20); CALCIUM 10.8 mg/dL (8.4-10.2); CARBON DIOXIDE 31 mmol/L (22-30); GLUCOSE 111 mg/dL (75-110); POTASSIUM 4.2 mmol/L (3.6-5.0); TOTAL PROTEIN 6.4 g/dL (6.3-8.2)
[2019-10-21 09:18] LABS: CHLORIDE 104 mmol/L (98-107)
[2019-10-21 09:20] LABS: ANION GAP 3 (5-19)
[2019-10-21] MEDS ORDERED: METOPROLOL SUCCINATE 50 MG TAB.SR.24H PO SCH (10:00)
[2019-10-21] MEDS ORDERED: VALSARTAN 160 MG TABLET PO SCH (10:00)
[2019-10-21] MEDS ORDERED: GABAPENTIN 300 MG CAPSULE PO SCH (10:00)
[2019-10-21] MEDS ORDERED: ASPIRIN 81 MG TABLET, ENT COATED PO SCH (10:00)
[2019-10-21] MEDS ORDERED: AMLODIPINE BESYLATE 10 MG TABLET PO SCH (10:00)
[2019-10-21] MEDS ORDERED: LEVOTHYROXINE SODIUM 0.1 MG TABLET PO SCH (10:00)
[2019-10-21] MEDS ORDERED: CLOPIDOGREL BISULFATE 75 MG TABLET PO SCH (10:00)
[2019-10-21] MEDS ORDERED: (PENDING PHARMACY ID) (Amlodipine Besylate/Valsartan [Amlodipine-Valsartan 10-320 Mg] 1 TA PO SCH (10:00)
[2019-10-21 15:13] VITALS: BP 149/84
[2019-10-21] MEDS ORDERED: ATORVASTATIN CALCIUM 40 MG TABLET PO SCH (22:00)
[2019-10-22] MEDS ORDERED: LEVOTHYROXINE SODIUM 0.075 MG TABLET PO SCH (10:00)
== END 2019-10-21 15:12 | disposition short-term general hospital (02) ==
LOC: ER 12:43
DX: G45.9 Transient cerebral ischemic attack, unspecified (principal); I63.9 Cerebral infarction, unspecified; E83.52 Hypercalcemia; R53.1 Weakness; E07.9 Disorder of thyroid, unspecified; E03.9 Hypothyroidism, unspecified; I10 Essential (primary) hypertension; E78.00 Pure hypercholesterolemia, unspecified; Z86.73 Personal history of transient ischemic attack (TIA), and cerebral infarction without residual deficits; Z88.6 Allergy status to analgesic agent; Z91.041 Radiographic dye allergy status; Z87.442 Personal history of urinary calculi; Z90.49 Acquired absence of other specified parts of digestive tract; Z90.710 Acquired absence of both cervix and uterus
CPT/HCPCS: 93005; 96376; 99291; 99292; 96374; 96375; 36415; 82553; 82962; 82550; 84443; 85025; 85610; 85730; 80053; 84484; 71045; 70450; 70496; 70498; 93010; A9270 ×9; J1200; J3490; J2930; J1885 ×2; J2405 ×2; S0028; J1100

== ENCOUNTER 2020-03-24 12:46 | Observation (INO) | payer MEDICARE, OTHER ==
--- NOTE | 2020-03-24 12:55 | ER Document Report ---
ED Medical Screen (RME) - General Chief Complaint: Slurred Speech Stated Complaint: SLURRED SPEECH,LEG WEAKNESS Time Seen by Provider: 03/24/20 12:53 Primary Care Provider: WALESKA ARREDONDO MD [Primary Care Provider] - Follow up as needed Notes: HPI: 65-year-old female presenting to the emergency department with strokelike symptoms. Patient has had a mild generalized headache for 2 days but states this morning when she woke up around 10 AM she noticed some numbness and tingling in the left face with some drooping. Complains of pain and weakness in the left arm and the left leg with some difficulty walking. No chest pain shortness of breath. Patient reports she is on a blood thinner. She reports that she had a prior stroke in September of this year PHYSICAL EXAMINATION: Patient with facial droop on the left noted on exam. She has slight weakness in the left arm and left leg on strength testing. She is answering questions appropriately. I have greeted and performed a rapid initial assessment of this patient. A comprehensive ED assessment and evaluation of the patient, analysis of test results and completion of medical decision making process will be conducted by an additional ED providers. TRAVEL OUTSIDE OF THE [place] IN LAST 30 DAYS: No - Related Data Allergies/Adverse Reactions: codeine Allergy (Verified 03/24/20 12:51) ivp dye Allergy (Uncoded 03/24/20 12:51) Past Medical History - Past Medical History Cardiac Medical History: Reports: Hx Hypercholesterolemia, Hx Hypertension Neurological Medical History: Denies: Hx Cerebrovascular Accident - History of TIAs x5, the most recent being about a year and a half ago. Renal/ Medical History: Reports: Hx Kidney Stones. Denies: Hx Peritoneal Dialysis Past Surgical History: Reports: Hx Appendectomy, Hx Cholecystectomy, Hx Hysterectomy, Hx Orthopedic Surgery - Rt rotator cuff, Hx Tonsillectomy Doctor's Discharge - Discharge Referrals: WALESKA ARREDONDO MD [Primary Care Provider] - Follow up as needed
--- NOTE | 2020-03-24 13:10 | RADIOLOGY REPORT (SQ) ---
EXAM DESCRIPTION: CT HEAD WITHOUT IMAGES COMPLETED DATE/TIME: 03/24/2020 1:01 pm REASON FOR STUDY: left side weakness COMPARISON: 10/19/2019 TECHNIQUE: Axial images acquired through the brain without intravenous contrast. Images reviewed wi th bone, brain and subdural windows. Additional sagittal and coronal reconstructions were generated. Images stored on PACS. All CT scanners at this facility use dose modulation, iterative reconstruction, and/or weight based d osing when appropriate to reduce radiation dose to as low as reasonably achievable (ALARA). [facility]: Dose Right [facility]: CareDose [facility]: Dose Right [facility]: Teradose 4D [facility]: AfterShip RADIATION DOSE: CT Rad equipment meets quality standard of care and radiation dose reduction techniq ues were employed. CTDIvol: 53.2 mGy. DLP: 1044 mGy-cm. mGy. LIMITATIONS: None. FINDINGS: VENTRICLES: Normal size and contour. CEREBRUM: No masses. No hemorrhage. No midline shift. No evidence for acute infarction. Normal gra y/white matter differentiation. No areas of low density in the white matter. CEREBELLUM: No masses. No hemorrhage. No alteration of density. No evidence for acute infarction. EXTRAAXIAL SPACES: No fluid collections. No masses. ORBITS AND GLOBE: No intra- or extraconal masses. Normal contour of globe without masses. CALVARIUM: No fracture. PARANASAL SINUSES: No fluid or mucosal thickening. SOFT TISSUES: No mass or hematoma. OTHER: No other significant finding. IMPRESSION: NORMAL BRAIN CT WITHOUT CONTRAST. EVIDENCE OF ACUTE STROKE: NO. COMMENT: Pertinent positive or negative findings of the imaging study reported as a CRITICAL EXAM t megan Antonio At13:03 on 03/24/2020. Category of Critical Exam: Stroke protocol. Quality ID # [id number]: Final reports with documentation of one or more dose reduction techniques (e.g., Au tomated exposure control, adjustment of the mA and/or kV according to patient size, use of iterative reconstruction technique) TECHNICAL DOCUMENTATION: JOB ID: [id number] 2010 [email or web address]- All Rights Reserved Reading location - IP/workstation name: [email or web address]
--- NOTE | 2020-03-24 13:15 | RADIOLOGY REPORT (SQ) ---
EXAM DESCRIPTION: CHEST SINGLE VIEW IMAGES COMPLETED DATE/TIME: 03/24/2020 1:07 pm REASON FOR STUDY: left side weakness COMPARISON: 10/19/2019 EXAM PARAMETERS: NUMBER OF VIEWS: One view. TECHNIQUE: Single frontal radiographic view of the chest acquired. RADIATION DOSE: NA LIMITATIONS: None. FINDINGS: LUNGS AND PLEURA: Minimal linear atelectasis in the right base. No consolidation or effus ion. MEDIASTINUM AND HILAR STRUCTURES: No masses. Contour normal. HEART AND VASCULAR STRUCTURES: Heart normal in size. Normal vasculature. BONES: No acute findings. HARDWARE: None in the chest. OTHER: No other significant finding. IMPRESSION: NO ACUTE RADIOGRAPHIC FINDING IN THE CHEST. TECHNICAL DOCUMENTATION: JOB ID: [id number] 2010 [employer]- All Rights Reserved Reading location - IP/workstation name: [email or web address]
[2020-03-24 13:16] LABS: ABSOLUTE BASOPHILS # (AUTO) 0.1 10^3/uL (0.0-0.2); ABSOLUTE EOSINOPHILS # (AUTO) 0.3 10^3/uL (0.0-0.6); ABSOLUTE LYMPHOCYTES (AUTO) 3.5 10^3/uL (0.5-4.7); ABSOLUTE MONOCYTES (AUTO) 0.6 10^3/uL (0.1-1.4); ABSOLUTE NEUT (AUTO) 6.4 10^3/uL (1.7-8.2); BASOPHILS % (AUTO) 1.3 % (0-2); EOSINOPHILS % (AUTO) 2.9 % (0-6); HEMATOCRIT 42.7 % (36.0-47.0); HEMOGLOBIN 14.3 g/dL (12.0-15.5); MEAN CORPUSCULAR HEMOGLOBIN 29.8 pg (27.0-33.4); MEAN CORPUSCULAR HGB CONC 33.6 g/dL (32.0-36.0); MEAN CORPUSCULAR VOLUME 89 fl (80-97); MONOCYTES % (AUTO) 5.5 % (3-13); PLATELET COUNT 286 10^3/uL (150-450); RED BLOOD COUNT 4.81 10^6/uL (3.72-5.28); RED CELL DISTRIBUTION WIDTH 13.7 % (11.5-14.0); SEGMENTED NEUTROPHILS % (AUTO) 58.5 % (42-78); TOTAL CELLS COUNTED % (AUTO) 100 %; WHITE BLOOD COUNT 10.9 10^3/uL (4.0-10.5)
[2020-03-24 13:17] LABS: LYMPHOCYTES % (AUTO) 3.5 % (13-45)
[2020-03-24 13:19] LABS: INTERNATIONAL RATION (INR) 0.96
[2020-03-24 13:20] LABS: PARTIAL THROMBOPLASTIN TIME 29.9 SEC (23.5-35.8)
[2020-03-24 13:36] LABS: ALBUMIN 4.2 g/dL (3.5-5.0); ALKALINE PHOSPHATASE 96 U/L (38-126); ANION GAP 6 (5-19); ASPARTATE AMINO TRANSFERASE 24 U/L (14-36); BILIRUBIN,TOTAL 0.5 mg/dL (0.2-1.3); BLOOD UREA NITROGEN 14 mg/dL (7-20); CALCIUM 11.1 mg/dL (8.4-10.2); CARBON DIOXIDE 26 mmol/L (22-30); CHLORIDE 107 mmol/L (98-107); CREATINE KINASE 41 U/L (30-135); GLUCOSE 112 mg/dL (75-110); POTASSIUM 4.3 mmol/L (3.6-5.0)
--- NOTE | 2020-03-24 13:43 | ER Document Report ---
ED General - General Chief Complaint: S/S of Possible Stroke Stated Complaint: SLURRED SPEECH,LEG WEAKNESS Time Seen by Provider: 03/24/20 12:53 TRAVEL OUTSIDE OF THE [place] IN LAST 30 DAYS: No - HPI Notes: Patient is a 65-year-old female who presents to the emergency department for evaluation of possible stroke symptoms. Patient states she went to sleep last night around midnight. She woke up at 10 AM and "did not feel right." She had facial numbness and tingling on the left side. She try to go about her day. She developed weakness in her legs, and actually was caught by neighbors before falling. She states that since then she developed some pain in her left arm. She notes that at some point during this ordeal she was having difficulty coming up with words, difficulty expressing them. She states that has entirely resolved. She denies any other numbness and tingling besides in her left face. She has had a stroke in the past, has had some residual weakness in her left leg. Facial droop was noted by neighbors as well as family member, who is present. At this time, patient's family member notes that her facial droop seems to be improving. Otherwise the patient states she has been taking her medications as prescribed. She was transferred to [facility] after a significant stroke. They told her they were concerned she may have branch syndrome, but because of the COVID-19 crisis, she has not had a complete work- up. She is currently taking Brilinta. - Related Data Allergies/Adverse Reactions: codeine Allergy (Verified 03/24/20 12:51) ivp dye Allergy (Uncoded 03/24/20 12:51) Home Medications: ... Past Medical History - General Information source: Patient - Social History Smoking Status: Current Some Day Smoker Chew tobacco use (# tins/day): No Frequency of alcohol use: None Drug Abuse: None Family History: CVA, Hypertension, Thyroid Disfunction Patient has homicidal ideation: No - Past Medical History Cardiac Medical History: Reports: Hx Hypercholesterolemia, Hx Hypertension Neurological Medical History: Reports: Hx Cerebrovascular Accident - History of TIAs x5, the most recent being about a year and a half ago. Renal/ Medical History: Reports: Hx Kidney Stones. Denies: Hx Peritoneal Dialysis Past Surgical History: Reports: Hx Appendectomy, Hx Cholecystectomy, Hx Hysterectomy, Hx Orthopedic Surgery - Rt rotator cuff, Hx Tonsillectomy Review of Systems - Review of Systems Constitutional: See HPI EENT: See HPI Musculoskeletal: See HPI Neurological/Psychological: See HPI Physical Exam - Vital signs Vitals: Temp 98.2 F 03/24/20 12:51 - Notes Notes: This is a very pleasant 65-year-old female who appears her stated age, no acute distress. She is sitting upright in the bed. Vital signs reviewed, please refer to chart. Head is normocephalic, atraumatic. Pupils equal round, reactive to light. Neck is supple without meningismus. Heart is regular rate and rhythm. Lungs are clear to auscultation bilaterally. Abdomen is soft, nontender, normoactive bowel sounds throughout. Extremities without cyanosis, clubbing. Posterior calves are nontender. Peripheral pulses are equal. Skin is warm and dry. Patient is awake and alert, oriented x3. She has very mild asymmetry of the nasolabial fold on the left, but actually is able to perform facial movements without significant difficulty. She has mildly diminished sensation to light touch over the inferior aspect of the left side of the face. She does exhibit some mild dysarthria. The remainder of cranial nerves II through XII are grossly intact. Strength is 4+ out of 5 in the left upper extremity, left lower extremity. It is 5+ out of 5 in the right upper and right lower extremity. It is difficult to tell as to whether or not this is new. Patient actually exhibits some mild hyperreflexia of the right upper extremity, but no other significant hyperreflexia is noted. Intact [id number], rapid alternating movements, kgoi-[id number]. Course - Re-evaluation Re-evalutation: 03/24/20 13:43 Patient is a 65-year-old female who presents to the emergency department for evaluation of symptoms of a CVA. Unfortunately, this patient woke with symptoms, lives alone, and we cannot report her last known well within a TPA window. Beyond that, the patient's stroke symptoms, by her own as well as her sisters admission, seems to be improving. Therefore she is not a candidate for TPA intervention at this time. Patient's blood pressure is moderately elevated, but nearly at baseline per family and patient. I am not inclined to aggre ssively lower blood pressure of 168/93 in a patient with known uncontrolled hypertension. Currently her NIH is 4. Will consult with neurology and continue to monitor. 03/24/20 16:27 Current NIH remains 4. She remained stable. She did complain of a headache and some mild nausea, so Tylenol and Zofran were ordered. Patient has already taken her aspirin and Brilinta today. Her deficits have not changed. I spoke with Daly Helm NP, who will accept the patient. Patient will be [place] [facility] [place]. - Vital Signs Vital signs: Temp Pulse Resp BP Pulse Ox 98.2 F 85 15 140/92 H 100 03/24/20 12:55 03/24/20 16:22 03/24/20 18:01 03/24/20 18:01 03/24/20 18:01 - Laboratory Result Diagrams: 03/24/20 13:00 03/24/20 13:00 Laboratory results interpreted by me: 03/24/20 03/24/20 13:00 13:00 WBC 10.9 H Lymph % (Auto) 3.5 L Glucose 112 H Calcium 11.1 H - Diagnostic Test Radiology reviewed: Reports reviewed Radiology results interpreted by me: 03/24/20 13:44 Chest X-Ray 03/24/20 12:53 IMPRESSION: NO ACUTE RADIOGRAPHIC FINDING IN THE CHEST. Head CT 03/24/20 12:53 IMPRESSION: NORMAL BRAIN CT WITHOUT CONTRAST. EVIDENCE OF ACUTE STROKE: NO. - EKG Interpretation by Me Additional EKG results interpreted by me: 03/24/20 13:44 Sinus mechanism with rate of 80 bpm. Normal axis and intervals. No acute ST changes concerning for ischemia or infarction. Critical Care Note - Critical Care Note Total time excluding time spent on procedures (mins): 30 Discharge - Discharge Clinical Impression: Acute CVA (cerebrovascular accident) Condition: Stable Disposition: ADMITTED OBSERVATION Admitting Provider: Bethany (Hospitalist) - Daly Helm NP, admitting Unit Admitted: [facility]
[2020-03-24 13:46] LABS: CREATINE KINASE MB 0.54 ng/mL (<4.55); TROPONIN I 0.012 ng/mL
[2020-03-24] MEDS ORDERED: ACETAMINOPHEN 325 MG TABLET PO ONE (16:22)
[2020-03-24] MEDS ORDERED: ONDANSETRON HCL INJ/PF 4 MG/2 ML SDV IV ONE (16:22)
--- NOTE | 2020-03-24 17:16 | EKG REPORT ---
SEVERITY:- NORMAL ECG - SINUS RHYTHM : Confirmed by: Quinton Lane MD 24-Mar-2020 17:15:15
[2020-03-24] MEDS ORDERED: DOCUSATE SODIUM 100 MG CAPSULE PO PRN (17:37)
[2020-03-24] MEDS ORDERED: MAGNESIUM HYDROXIDE SUSP 30 ML UDCUP PO PRN (17:37)
[2020-03-24] MEDS ORDERED: ONDANSETRON HCL INJ/PF 4 MG/2 ML SDV IV PRN (17:37)
[2020-03-24] MEDS: TICAGRELOR 90 MG TABLET PO SCH (17:44)
[2020-03-24] MEDS ORDERED: HYDRALAZINE HCL INJ/PF 20 MG/1 ML SDV IV PRN (17:58)
--- NOTE | 2020-03-24 17:59 | PDOC H&P ---
History of Present Illness Admission Date/PCP: 03/24/20 17:02 WALESKA ARREDONDO MD Patient complains of: Paresthesia History of Present Illness: ALISON HENRY is a 65 year old female past medical history significant for multiple TIAs and acute CVA x1, hypothyroidism, hypertension, dysarthria, progressively worsening ataxia, and obesity who presented to the emergency department with a complaint of sudden onset left facial paresthesia (describes as bwgh-gpz-myqssbs to CN tracks 5 and 7), oral paresthesia (numbness), worsening of bilateral hand neuropathy, and worsening ataxia resulting in a fall without injury. It is unclear whether or not the patient had brief mental status change at this time. However, her sister notes that following this, she had a brief period of confusion and difficulty word finding. She does continue to have a left-sided facial droop worse from her baseline and slurred speech worse from baseline. Evaluation in the emergency department revealed hypertension (168/93) otherwise stable vital signs, CBC remarkable only for mildly elevated WBCs, normal PT/INR APTT T, and chemistry significant only for a mildly elevated calcium at 11.1. Troponin is negative. Chest x-ray is benign. Head CT is negative for acute findings. EKG demonstrates normal sinus rhythm. She is referred to the hospital service for further evaluation and management of the above-stated complaints and findings. Past Medical History Cardiac Medical History: Reports: Hyperlipidema, Hypertension Denies: Myocardial Infarction Pulmonary Medical History: Reports: None EENT Medical History: Reports: None Neurological Medical History: Reports: Ischemic CVA, Other - Progressively worsening paresthesias and ataxia Endocrine Medical History: Reports: Hypothyroidism, Obesity, Other - Chronic hypercalcemia Traumatic Medical History: Reports: None Hematology: Reports: None Infectious Medical History: Reports: None Past Surgical History Past Surgical History: Reports: Appendectomy, Cholecystectomy, Hysterectomy, Orthopedic Surgery - Rt rotator cuff, Tonsillectomy Social History Information Source: Patient, Relative Smoking Status: Current Some Day Smoker Electronic Cigarette use?: No Frequency of Alcohol Use: None Hx Recreational Drug Use: No Drugs: None Hx Prescription Drug Abuse: No Family History Family History: CVA, Hypertension, Thyroid Disfunction, Other - Parathyroidism Parental Family History Reviewed: Yes Children Family History Reviewed: Yes Sibling(s) Family History Reviewed.: Yes Medication/Allergy Home Medications: Atorvastatin Calcium [Lipitor 40 mg Tablet] 40 mg PO QHS 05/31/19 Clopidogrel Bisulfate [Plavix 75 mg Tablet] 75 mg PO DAILY 05/31/19 Ibuprofen [Motrin 800 mg Tablet] 800 mg PO Q8HP PRN 05/31/19 Levothyroxine Sodium 175 mcg PO Q6AM 05/31/19 Metoprolol Succinate [Toprol XL 100 mg Tablet] 100 mg PO Q12 05/31/19 Amlodipine Besylate/Valsartan [Amlodipine-Valsartan 10-320 mg] 1 tab PO DAILY 10/19/19 Aspirin [Ecotrin 81 mg EC Tablet] 81 mg PO DAILY 10/19/19 Gabapentin [Neurontin 300 mg Capsule] 300 mg PO DAILY 10/19/19 Allergies/Adverse Reactions: codeine Allergy (Verified 03/24/20 12:51) ivp dye Allergy (Uncoded 03/24/20 12:51) Review of Systems Constitutional: PRESENT: weakness. ABSENT: chills, fever(s), headache(s), weight gain, weight loss Eyes: ABSENT: visual disturbances Ears: ABSENT: hearing changes Nose, Mouth, and Throat: PRESENT: as per HPI, mouth pain Cardiovascular: ABSENT: chest pain, dyspnea on exertion, edema, orthropnea, palpitations Respiratory: ABSENT: cough, hemoptysis Gastrointestinal: ABSENT: abdominal pain, constipation, diarrhea, hematemesis, hematochezia, nausea, vomiting Genitourinary: ABSENT: dysuria, hematuria Musculoskeletal: ABSENT: joint swelling Integumentary: ABSENT: rash, wounds Neurological: PRESENT: as per HPI, abnormal gait, convulsions, frequent falls, lack of coordination, paresthesias, tremor(s), weakness. ABSENT: abnormal sp eech, confusion, dizziness, focal weakness, syncope Psychiatric: ABSENT: anxiety, depression, homidical ideation, suicidal ideation Endocrine: ABSENT: cold intolerance, heat intolerance, polydipsia, polyuria Hematologic/Lymphatic: ABSENT: easy bleeding, easy bruising Physical Exam Vital Signs: Temp Pulse Resp BP Pulse Ox 98.2 F 85 13 166/90 H 99 03/24/20 12:55 03/24/20 16:22 03/24/20 17:01 03/24/20 17:01 03/24/20 17:01 Intake & Output 03/23/20 03/24/20 03/25/20 06:59 06:59 06:59 Weight 90.9 kg General appearance: PRESENT: no acute distress, cooperative, well-developed, well-nourished - Overweight Head exam: PRESENT: atraumatic, normocephalic Eye exam: PRESENT: conjunctiva pink, EOMI, PERRLA. ABSENT: scleral icterus Mouth exam: PRESENT: moist, tongue midline Neck exam: ABSENT: carotid bruit, JVD, lymphadenopathy, thyromegaly Respiratory exam: PRESENT: clear to auscultation rishabh, symmetrical, unlabored. ABSENT: rales, rhonchi, wheezes Cardiovascular exam: PRESENT: RRR. ABSENT: diastolic murmur, rubs, systolic murmur Pulses: PRESENT: normal dorsalis pedis pul Vascular exam: PRESENT: normal capillary refill GI/Abdominal exam: PRESENT: normal bowel sounds, soft. ABSENT: distended, guarding, mass, organolmegaly, rebound, tenderness Rectal exam: PRESENT: deferred Extremities exam: PRESENT: full ROM. ABSENT: calf tenderness, clubbing, pedal edema Neurological exam: PRESENT: alert, awake, oriented to person, oriented to place, oriented to time, oriented to situation, CN II-XII grossly intact, other - Slight left-sided facial droop with delayed/slurred speech. No other focal deficits. Strength 5/5 bilateral upper and lower extremities.. ABSENT: motor sensory deficit Psychiatric exam: PRESENT: appropriate affect, normal mood. ABSENT: homicidal ideation, suicidal ideation Skin exam: PRESENT: dry, intact, warm. ABSENT: cyanosis, rash Results Laboratory Results: 03/24/20 13:00 03/24/20 13:00 03/24/20 03/24/20 13:00 13:00 WBC 10.9 H RBC 4.81 Hgb 14.3 Hct 42.7 MCV 89 MCH 29.8 MCHC 33.6 RDW 13.7 Plt Count 286 Seg Neutrophils % 58.5 Sodium 138.6 Potassium 4.3 Chloride 107 Carbon Dioxide 26 Anion Gap 6 BUN 14 Creatinine 0.52 Est GFR ( Amer) > 60 Glucose 112 H Calcium 11.1 H Total Bilirubin 0.5 AST 24 Alkaline Phosphatase 96 Total Protein 7.0 Albumin 4.2 03/24/20 03/24/20 13:00 13:00 Creatine Kinase 41 CK-MB (CK-2) 0.54 Troponin I 0.012 Impressions: Chest X-Ray 03/24/20 12:53 IMPRESSION: NO ACUTE RADIOGRAPHIC FINDING IN THE CHEST. Head CT 03/24/20 12:53 IMPRESSION: NORMAL BRAIN CT WITHOUT CONTRAST. EVIDENCE OF ACUTE STROKE: NO. Assessment and Plan - Diagnosis (1) TIA (transient ischemic attack) Is this a current diagnosis for this admission?: Yes Plan: Patient with sudden onset of weakness, worsening ataxia, left-sided facial droop with paresthesias, oral paresthesia, and increased paresthesia of bilateral hands. Similar to previous episodes in the past where she has been diagnosed with TIA. Patient reports Dr. Damon did an echocardiogram approximately 4 months ago. Head/Neck CTA (10/19/2019) was negative for hemodynamically significant stenosis. Pending appointments with [facility] and neurology Per patient, no recent MRI imagining. Patient is admitted to [facility] on continuous cardiac telemetry. As it is unclear if the patient is experiencing TIA/CVA vs other neurological sequela will obtain contrasted MRI of the brain EEG pending. TSH, Lipid panel, A1c pending for risk stratification. Continue home dose aspirin and Brilinta. High-dose atorvastatin. PT/OT/ST consultations. Permissive hypertension. (2) Paresthesia Is this a current diagnosis for this admission?: Yes Plan: We will obtain MRI of the cervical spine to rule out radiculopathy that could be the source of her extremity paresthesia. Thorough laboratory evaluation is pending: We will check for metabolic processes: vitamin B1, folate, B12, vitamin D, thyroid panel, PTH, CRESENCIO panel with reflex, SED and CRP We will evaluate for potential chronic infectious processes: Hepatitis, RPR, Lyme We will check for dietary deficiencies: Vitamin B and D as above, additionally, copper and zinc. Increase gabapentin to 300 mg twice daily. Consider Cymbalta. (3) Ataxia Is this a current diagnosis for this admission?: Yes Plan: Progressively worsening ataxia. Unclear etiology. 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 They also have been told that the patient had multiple nutritional deficiencies (specifically vitamin D and vitamin B) and arrangements were being made for her to receive regular injections/infusions, however, this is also been delayed. Thorough metabolic laboratory evaluation is pending. Pending MRI imaging as above. PT/OT consultation. Fall precautions. 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 We will resume levothyroxine as indicated. (5) Hypertension Qualifiers: Hypertension type: unspecified Qualified Code(s): I10 - Essential (primary) hypertension Is this a current diagnosis for this admission?: Yes Plan: Permissive hypertension until CVA has been ruled out (MRI head pending). Resume home dose antihypertensives as indicated. IV hydralazine PRN. - Time Time Spent with patient: 35 or more minutes Medications reviewed and adjusted accordingly: Yes Anticipated Discharge Disposition: Home with Home Health Anticipated Discharge Timeframe: within 48 hours
[2020-03-24 19:25] LABS: FREE T3 2.45 pg/mL (2.77-5.27); FREE T4 (FREE THYROXINE) 1.21 ng/dL (0.78-2.19)
[2020-03-24 19:39] LABS: THYROID STIMULATING HORMONE 5.98 uIU/mL (0.47-4.68)
[2020-03-24 20:22] LABS: C-REACTIVE PROTEIN < 5.0 mg/L (<10.0)
--- NOTE | 2020-03-24 20:31 | RADIOLOGY REPORT (SQ) ---
EXAM DESCRIPTION: MR BRAIN WITHOUT THEN WITH IV CONTRAST COMPLETED DATE/TME: 03/24/2020 00:00 CLINICAL HISTORY: 65 years, Female, ataxia EXAM DESCRIPTION: CLINICAL HISTORY: ataxia History stroke in October reported by patient. Pain in left upper extremity. Weakness in left leg. COMPARISON: None TECHNIQUE: Multiplanar multisequence imaging of the brain including the intravenous administration of contrast. FINDINGS: Scattered foci of increased T2 signal intensity do not exert significant mass effect on surrounding structures and may be sequela of prior insult, most likely on the basis of small vessel disease. There is no evidence of acute ischemia. Patient motion limits detail. No focal pathologic enhancement is seen. There is no evidence of acute mass, mass effect, midline shift or hemorrhage. No focal abnormal extra-axial fluid collection is seen. The ventricles, basal cisterns and extra-axial fluid spaces are normal in size and configuration. Brain parenchymal signal is otherwise normal. IMPRESSION: No acute abnormalities.
[2020-03-24] MEDS: HEPARIN SOD (PORCINE) 5,000 UNIT/ML 1 ML VIAL SUBCUT SCH (21:47)
[2020-03-24] MEDS: FAMOTIDINE 20 MG TABLET PO SCH (21:47)
[2020-03-24] MEDS: ATORVASTATIN CALCIUM 80 MG TABLET PO SCH (21:47)
[2020-03-24] MEDS ORDERED: GABAPENTIN 300 MG CAPSULE PO SCH (22:00)
--- NOTE | 2020-03-24 23:15 | RADIOLOGY REPORT (SQ) ---
MRI of the cervical spine without contrast: 03/24/2020 10:09 PM CDT TECHNIQUE: Sagittal T1, T2, STIR; axial T2 and gradient echo images of the cervical spine were obtained without intravenous contrast administered. COMPARISON: CTA of the neck from HISTORY: 55-year-old patient with bilateral upper extremity paresthesias. FINDINGS: There is minimal anterolisthesis of C4 over C5 by 2 to 3 mm. No abnormal marrow signal is seen to suggest an infiltrative process or acute injury. No significant loss of vertebral body height is seen. Moderate multilevel intervertebral disc space narrowing is seen. There is reversal of the normal cervical lordosis noted. There is diffuse narrowing within the spinal canal, likely due to short pedicles. The visualized portions of the spinal cord demonstrate no abnormal signal or volume loss. The cervicomedullary junction is unremarkable. No significant prevertebral soft tissue swelling is seen. C2/C3: There is mild left neural foraminal narrowing. The thecal sac is narrowed to 9 mm in AP dimension.. C3/C4: There is a diffuse disc bulge at this level which indents upon the ventral aspect of the thecal sac. The thecal sac is narrowed to 9 mm in AP dimension. There is mild to moderate bilateral neural foraminal narrowing. C4/C5: A diffuse disc bulge indents upon the ventral aspect of thecal sac and narrows it to 9 mm in AP dimension. There is moderate left and mild foraminal narrowing. C5/C6: There is a diffuse disc bulge at this level which indents upon the ventral aspect of the thecal sac and narrows it to 9-10 mm in AP dimension. There is mild to moderate right and mild left neural foraminal narrowing. C6 : A diffuse disc bulge indents upon the ventral aspect of the thecal sac and narrows it to approximately 1 cm in AP dimension. Mild bilateral neural foraminal narrowing is seen. C7 : No significant thecal sac compression or neural foraminal narrowing is seen. IMPRESS : There are multilevel degenerative changes at the cervical spine contributing to multilevel thecal sac compression and neural foraminal narrowing, as described above.
[2020-03-25] MEDS: HEPARIN SOD (PORCINE) 5,000 UNIT/ML 1 ML VIAL SUBCUT SCH ×3 (05:52→22:52)
[2020-03-25 06:58] LABS: CHOLESTEROL 181.37 mg/dL (0-200); TRIGLYCERIDES 449 mg/dL (<150)
[2020-03-25 07:08] LABS: DIRECT LDL 83 mg/dL (<100)
[2020-03-25] MEDS: IBUPROFEN 600 MG TABLET PO PRN (09:32)
[2020-03-25] MEDS ORDERED: TICAGRELOR 90 MG TABLET PO SCH (10:00)
[2020-03-25] MEDS ORDERED: (PENDING PHARMACY ID) (Amlodipine Besylate/Valsartan [Amlodipine-Valsartan 10-320 Mg] 1 TA PO SCH (10:00)
[2020-03-25] MEDS ORDERED: (PENDING PHARMACY ID) (Levothyroxine Sodium [Levothyroxine Sodium] 200 MCG) PO SCH (10:00)
[2020-03-25] MEDS ORDERED: ASPIRIN 81 MG TABLET, ENT COATED PO SCH (10:00)
[2020-03-25] MEDS ORDERED: (PENDING PHARMACY ID) (Metformin Hcl [Metformin Hcl Er] 500 MG) PO SCH (10:00)
[2020-03-25] MEDS: FAMOTIDINE 20 MG TABLET PO SCH ×2 (10:13→22:52)
[2020-03-25] MEDS: AMLODIPINE BESYLATE 10 MG TABLET PO SCH (10:13)
[2020-03-25] MEDS: ASPIRIN 81 MG TABLET, CHEWABLE PO SCH (10:13)
[2020-03-25] MEDS: GABAPENTIN 300 MG CAPSULE PO SCH ×2 (10:13→22:52)
[2020-03-25] MEDS: METFORMIN HCL 500 MG TABLET PO SCH ×2 (10:14→17:38)
[2020-03-25] MEDS: METOPROLOL SUCCINATE 50 MG TAB.SR.24H PO SCH (10:14)
[2020-03-25] MEDS: VALSARTAN 160 MG TABLET PO SCH (10:14)
[2020-03-25] MEDS: LEVOTHYROXINE SODIUM 0.025 MG TABLET PO SCH (10:15)
[2020-03-25] MEDS: LEVOTHYROXINE SODIUM 0.1 MG TABLET PO SCH (10:15)
--- NOTE | 2020-03-25 11:05 | PDOC PROGRESS REPORT ---
Subjective Progress Note for:: 03/25/20 Subjective:: Facial droop is improved. She has been frustrated with the events over the last 4 to 6 months. This is happened before. She keeps getting different answers from different providers. Reason For Visit: TIA Physical Exam Vital Signs: Temp Pulse Resp BP Pulse Ox 97.5 F 79 20 155/86 H 95 03/25/20 09:14 03/25/20 09:14 03/25/20 09:14 03/25/20 09:14 03/25/20 09:14 Intake & Output 03/24/20 03/25/20 03/26/20 06:59 06:59 06:59 Intake Total 100 Output Total 0 Balance 100 Weight 89.7 kg General appearance: PRESENT: cooperative, mild distress, well-developed, well- nourished Ear exam: PRESENT: normal external ear exam. ABSENT: bleeding, drainage Neck exam: ABSENT: carotid bruit, JVD, lymphadenopathy Respiratory exam: PRESENT: clear to auscultation rishabh, unlabored. ABSENT: prolonged expiratory phas, rales, rhonchi, tachypnea, wheezes Cardiovascular exam: PRESENT: RRR, +S1, +S2. ABSENT: bradycardia, diastolic murmur, irregular rhythm, systolic murmur, tachycardia GI/Abdominal exam: PRESENT: normal bowel sounds, soft. ABSENT: distended, guarding, tenderness Rectal exam: PRESENT: deferred Gentrourinary exam: ABSENT: indwelling catheter Extremities exam: ABSENT: pedal edema Musculoskeletal exam: PRESENT: normal inspection. ABSENT: deformity, dislocation Neurological exam: PRESENT: alert, awake, oriented to person, oriented to place, oriented to time, oriented to situation, CN II-XII grossly intact. ABSENT: altered Psychiatric exam: PRESENT: appropriate affect. ABSENT: agitated, anxious Focused psych exam: ABSENT: delusional, paranoid, restlessness Skin exam: PRESENT: dry, normal color, warm. ABSENT: rash Results Laboratory Results: 03/24/20 13:00 03/24/20 13:00 03/24/20 03/24/20 03/24/20 13:00 13:00 18:20 WBC 10.9 H RBC 4.81 Hgb 14.3 Hct 42.7 MCV 89 MCH 29.8 MCHC 33.6 RDW 13.7 Plt Count 286 Seg Neutrophils % 58.5 Sodium 138.6 Potassium 4.3 Chloride 107 Carbon Dioxide 26 Anion Gap 6 BUN 14 Creatinine 0.52 Est GFR ( Amer) > 60 Glucose 112 H Calcium 11.1 H Magnesium 1.8 Total Bilirubin 0.5 AST 24 Alkaline Phosphatase 96 C-Reactive Protein < 5.0 Total Protein 7.0 Albumin 4.2 Triglycerides Cholesterol LDL Cholesterol Direct HDL Cholesterol Vitamin B12 677.0 Folate 12.10 TSH Free T4 Free T3 pg/mL PTH Intact 03/24/20 03/24/20 03/25/20 18:20 18:20 06:11 WBC RBC Hgb Hct MCV MCH MCHC RDW Plt Count Seg Neutrophils % Sodium Potassium Chloride Carbon Dioxide Anion Gap BUN Creatinine Est GFR ( Amer) Glucose Calcium Magnesium Total Bilirubin AST Alkaline Phosphatase C-Reactive Protein Total Protein Albumin Triglycerides 449 H Cholesterol 181.37 LDL Cholesterol Direct 83 HDL Cholesterol 35 L Vitamin B12 Folate TSH 5.98 H Free T4 1.21 Free T3 pg/mL 2.45 L PTH Intact 70.9 H 03/24/20 03/24/20 03/24/20 13:00 13:00 18:20 Creatine Kinase 41 CK-MB (CK-2) 0.54 Troponin I 0.012 0.012 Impressions: Head MRI 03/24/20 00:00 IMPRESSION: No acute abnormalities. Chest X-Ray 03/24/20 12:53 IMPRESSION: NO ACUTE RADIOGRAPHIC FINDING IN THE CHEST. Head CT 03/24/20 12:53 IMPRESSION: NORMAL BRAIN CT WITHOUT CONTRAST. EVIDENCE OF ACUTE STROKE: NO. Assessment and Plan - Diagnosis (1) TIA (transient ischemic attack) Is this a current diagnosis for this admission?: Yes Plan: Patient with sudden onset of weakness, worsening ataxia, left-sided facial droop with paresthesias, oral paresthesia, and increased paresthesia of bilateral hands. Similar to previous episodes in the past where she has been diagnosed with TIA. Patient reports Dr. Damon did an echocardiogram approximately 4 months ago. Head/Neck CTA (10/19/2019) was negative for hemodynamically significant stenosis. Pending appointments with [facility] and neurology Per patient, no recent MRI imagining. Patient is admitted to [facility] on continuous cardiac telemetry. As it is unclear if the patient is experiencing TIA/CVA vs other neurological sequela will obtain contrasted MRI of the brain EEG pending. TSH, Lipid panel, A1c pending for risk stratification. Continue home dose aspirin and Brilinta. High-dose atorvastatin. PT/OT/ST consultations. Permissive hypertension. Doing well with PT. Good BP control. No cahnges (2) Paresthesia Is this a current diagnosis for this admission?: Yes Plan: We will obtain MRI of the cervical spine to rule out radiculopathy that could be the source of her extremity paresthesia. Thorough laboratory evaluation is pending: We will check for metabolic processes: vitamin B1, folate, B12, vitamin D, t hyroid panel, PTH, CRESENCIO panel with reflex, SED and CRP We will evaluate for potential chronic infectious processes: Hepatitis, RPR, Lyme We will check for dietary deficiencies: Vitamin B and D as above, additionally, copper and zinc. Increase gabapentin to 300 mg twice daily. Consider Cymbalta. Sig multilevel degenerative disc disease. She might benefit from Injection therapy (3) Ataxia Is this a current diagnosis for this admission?: Yes Plan: Progressively worsening ataxia. Unclear etiology. 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 They also have been told that the patient had multiple nutritional deficiencies (specifically vitamin D and vitamin B) and arrangements were being made for her to receive regular injections/infusions, however, this is also been delayed. Thorough metabolic laboratory evaluation is pending. Pending MRI imaging as above. PT/OT consultation. Fall precautions. PT recommends Home PT (4) Hypothyroidism Qualifiers: Hypothyroidism type: due to Zeenat's thyroiditis Qualified Code(s): E03.8 - Other specified hypothyroidism; E06.3 - Autoimmune thyroiditis Is this a current diagnosis for this admission?: Yes Plan: cont levothyroxine (5) Hypertension Qualifiers: Hypertension type: unspecified Qualified Code(s): I10 - Essential (primary) hypertension Is this a current diagnosis for this admission?: Yes Plan: excellent BP control (6) Hypercalcemia Is this a current diagnosis for this admission?: Yes Plan: Calcium normal (7) Hyperparathyroidism Is this a current diagnosis for this admission?: Yes Plan: PTH minimally elevated. This is no different from last year. - Time Time Spent with patient: 15-24 minutes Medications reviewed and adjusted accordingly: Yes Anticipated Discharge Disposition: Home with Home Health Anticipated Discharge Timeframe: within 48 hours
[2020-03-25] MEDS: TICAGRELOR 90 MG TABLET PO SCH ×2 (11:52→17:38)
--- NOTE | 2020-03-25 13:44 | RADIOLOGY REPORT (SQ) ---
EXAM DESCRIPTION: CAROTID DOPPLER IMAGES COMPLETED DATE/TIME: 03/25/2020 1:23 pm REASON FOR STUDY: TIA E03.9 HYPOTHYROIDISM, UNSPECIFIED Z20.5 CONTACT WITH AND (SUSPECTED) EXPOSUR E TO VIRAL HEPATIT E78.2 MIXED HYPERLIPIDEMIA COMPARISON: 05/03/2019 TECHNIQUE: Grayscale ultrasound, Doppler velocity and spectra, and color Doppler images acquired of the extra-cranial carotid and vertebral arteries. Images stored on PACS. LIMITATIONS: None. FINDINGS: RIGHT CAROTID CCA Velocities: Within normal limits. ICA Velocities Peak systolic 62 cm/s. End diastolic 13 cm/s. Proximal ICA/CCA peak systolic ratio 1.3. There is some soft plaque present. LEFT CAROTID CCA Velocities: Within normal limits. ICA Velocities Peak systolic 68 cm/s. End diastolic 27 cm/s. Proximal ICA/CCA peak systolic ratio 1.3. There is some soft plaque VERTEBRAL ARTERIES: Antegrade flow. Normal waveforms. SUBCLAVIAN ARTERIES: No finding. OTHER: No other significant finding. IMPRESSION: Soft plaque bilaterally. No hemodynamically significant stenosis. COMMENT: Quality ID #[id number]: Velocity criteria are extrapolated from the diameter data as defined by t he Society of Radiologists in Ultrasound Consensus Conference. Radiology 2003: 229; 340-346. TECHNICAL DOCUMENTATION: JOB ID: [id number] 2010 [employer]- All Rights Reserved Reading location - IP/workstation name: [email or web address]
--- NOTE | 2020-03-25 13:49 | NEURO WORKBENCH EEG REPORT ---
EEG Report Patient: Ebony Austin ID: [id number] Referring Doctor: Bethany Bond DOS: 03/25/2020 Medications: Aspirin, Liptior, Famotidine, Gabapentin, Porcine, Brilinta History This is a 65 year old right handed female with a history of Hashimotos Thyroiditis/hypothyroid, TIAs, cardiac disease, hypercholesterolemia, hypertension, appendectomy, cholecystectomy, kidney stone, hysterectomy, rotator cuff surgery, chronic back pain, carpal tunnel who was admitted with a TIA. This EEG was requested for TIA/syncope. EEG Interpretation This EEG was recorded in the awake, drowsy, and sleep states. The awake EEG is characterized by a moderately well-organized background with a well developed and reactive posterior dominant rhythm of 7.5 Hz. The remainder of the background was characterized by a combination of theta with some alpha and beta frequencies as well as myogenic artifact. Drowsiness was characterized by slowing of the background rhythms. Vertex waves and sleep spindles were seen in the midline head regions. Photic stimulation resulted in a minimal driving response. There were no epileptiform abnormalities. The EKG showed a regular rhythm. EEG Classification * Generalized background slowing, mild EEG Impression This EEG is abnormal. There is generalized background slowing that is suggestive of nonspecific mild diffuse cerebral dysfunction. There were no epileptiform abnormalities noted. INTERPRETING NEUROLOGIST: Page Peck MD, FRCPC Board Certified in Neurology, with special qualification in Child Neurology, and in Clinical Neurophysiology [facility]
[2020-03-25] MEDS ORDERED: ATORVASTATIN CALCIUM 40 MG TABLET PO SCH (22:00)
[2020-03-25] MEDS: ATORVASTATIN CALCIUM 80 MG TABLET PO SCH (22:52)
[2020-03-26] MEDS: IBUPROFEN 600 MG TABLET PO PRN (04:36)
[2020-03-26] MEDS: HEPARIN SOD (PORCINE) 5,000 UNIT/ML 1 ML VIAL SUBCUT SCH ×3 (05:35→22:44)
[2020-03-26] MEDS: LEVOTHYROXINE SODIUM 0.025 MG TABLET PO SCH (05:36)
[2020-03-26 05:38] LABS: HEPATITS B SURFACE ANTIGEN Negative (Negative)
[2020-03-26] MEDS: LEVOTHYROXINE SODIUM 0.1 MG TABLET PO SCH (05:38)
[2020-03-26 07:07] LABS: HEPATITIS C VIRUS ANTIBODY <0.1 s/co ratio (0.0-0.9)
[2020-03-26] MEDS: AMLODIPINE BESYLATE 10 MG TABLET PO SCH (09:20)
[2020-03-26] MEDS: ASPIRIN 81 MG TABLET, CHEWABLE PO SCH (09:20)
[2020-03-26] MEDS: TICAGRELOR 90 MG TABLET PO SCH ×2 (09:20→17:14)
[2020-03-26] MEDS: METFORMIN HCL 500 MG TABLET PO SCH ×2 (09:21→17:14)
[2020-03-26] MEDS: METOPROLOL SUCCINATE 50 MG TAB.SR.24H PO SCH (09:21)
[2020-03-26] MEDS: GABAPENTIN 300 MG CAPSULE PO SCH ×2 (09:21→22:44)
[2020-03-26] MEDS: VALSARTAN 160 MG TABLET PO SCH (09:21)
[2020-03-26] MEDS: FAMOTIDINE 20 MG TABLET PO SCH ×2 (09:21→22:00)
--- NOTE | 2020-03-26 12:10 | PDOC DISCHARGE SUMMARY ---
Impression - Admit/DC Date/PCP Admission Date/Primary Care Provider: 03/24/20 17:02 WALESKA ARREDONDO MD Discharge Date: 03/27/20 - Discharge Diagnosis (1) Ataxia Is this a current diagnosis for this admission?: Yes (2) Paresthesia Is this a current diagnosis for this admission?: Yes (3) Hypercalcemia Is this a current diagnosis for this admission?: Yes (4) Hypertension Is this a current diagnosis for this admission?: Yes (5) Hypothyroidism Is this a current diagnosis for this admission?: Yes (6) TIA (transient ischemic attack) Is this a current diagnosis for this admission?: Yes (7) Hyperparathyroidism Is this a current diagnosis for this admission?: Yes - Additional Information Resuscitation Status: Do Not Resuscitate Referrals: WALESKA ARREDONDO MD [Primary Care Provider] - 03/31/20 2:30 pm (Tele message either on the phone or on the computer though e-mail.) Home Medications: Atorvastatin Calcium [Lipitor 40 mg Tablet] 80 mg PO QHS 05/31/19 Ibuprofen [Motrin 800 mg Tablet] 800 mg PO Q8HP PRN 05/31/19 Metoprolol Succinate [Toprol XL 100 mg Tablet] 100 mg PO DAILY 05/31/19 Amlodipine Besylate/Valsartan [Amlodipine-Valsartan 10-320 mg] 1 tab PO DAILY 10/19/19 Aspirin [Ecotrin 81 mg EC Tablet] 81 mg PO DAILY 10/19/19 Clonidine HCl [Catapres 0.1 mg Tablet] 0.1 mg PO BIDP PRN 03/24/20 Ergocalciferol (Vitamin D2) [Vitamin D2] 50,000 unit PO ORTIZ@1000 03/24/20 Gabapentin 600 mg PO BID 03/24/20 Levothyroxine Sodium 200 mcg PO DAILY 03/24/20 Metformin HCl [Metformin HCl ER] 500 mg PO BID 03/24/20 Ticagrelor [Brilinta 90 mg Tablet] 90 mg PO BID 03/24/20 Aspirin [Aspirin 81 mg Chewable Tablet] 81 mg PO DAILY tab.chew 03/26/20 Atorvastatin Calcium [Lipitor 80 mg Tablet] 80 mg PO QHS tablet 03/26/20 Docusate Sodium [Colace 100 mg Capsule] 100 mg PO BIDP PRN capsule 03/26/20 Ibuprofen [Motrin 600 mg Tablet] 600 mg PO Q6HP PRN tablet 03/26/20 Ticagrelor [Brilinta 90 mg Tablet] 90 mg PO BID tablet 03/26/20 History of Present Illiness History of Present Illness: ALISON HENRY is a 65 year old female past medical history significant for multiple TIAs and acute CVA x1, hypothyroidism, hypertension, dysarthria, progressively worsening ataxia, and obesity who presented to the emergency department with a complaint of sudden onset left facial paresthesia (describes as [id number] to CN tracks 5 and 7), oral paresthesia (numbness), worsening of bilateral hand neuropathy, and worsening ataxia resulting in a fall without injury. It is unclear whether or not the patient had brief mental status change at this time. However, her sister notes that following this, she had a brief period of confusion and difficulty word finding. She does continue to have a left-sided facial droop worse from her baseline and slurred speech worse from baseline. Evaluation in the emergency department revealed hypertension (168/93) otherwise stable vital signs, CBC remarkable only for mildly elevated WBCs, normal PT/INR APTT T, and chemistry significant only for a mildly elevated calcium at 11.1. Troponin is negative. Chest x-ray is benign. Head CT is negative for acute findings. EKG demonstrates normal sinus rhythm. She is referred to the hospital service for further evaluation and management of the above-stated complaints and findings. Hospital Course Hospital Course: The patient had an unremarkable hospital course until the expected date of discharge. Her hyperparathyroidism and hypercalcemia were basically unchanged from last year. When the patient stood up to leave the hospital she became very dizzy. She described her legs giving out from her. On the day of actual discharge she felt much better. We discussed the event and is difficult to know exactly what the cause was but everything from vasovagal to transient hypotension can be considered. On the day of discharge she was in fact in good spirits and felt much better. Physical Exam Vital Signs: Temp Pulse Resp BP Pulse Ox 97.3 F 60 16 136/71 H 99 03/26/20 07:35 03/26/20 07:35 03/26/20 07:35 03/26/20 07:35 03/26/20 07:35 Intake & Output 03/25/20 03/26/20 03/27/20 06:59 06:59 06:59 Intake Total 100 200 Output Total 0 300 Balance 100 -100 Weight 89.7 kg 90.4 kg General appearance: PRESENT: no acute distress, cooperative, well-developed Head exam: PRESENT: atraumatic, normocephalic Respiratory exam: PRESENT: clear to auscultation rishabh, symmetrical, unlabored. ABSENT: rales, rhonchi, tachypnea, wheezes Cardiovascular exam: PRESENT: RRR, +S1, +S2 GI/Abdominal exam: PRESENT: normal bowel sounds, soft. ABSENT: distended, tende rness Gentrourinary exam: ABSENT: indwelling catheter Extremities exam: ABSENT: pedal edema Musculoskeletal exam: PRESENT: normal inspection, other - hand arthritis. ABSENT: deformity, dislocation Neurological exam: PRESENT: alert, awake, oriented to person, oriented to place, oriented to time, oriented to situation, CN II-XII grossly intact Psychiatric exam: PRESENT: appropriate affect. ABSENT: agitated, anxious Results Laboratory Results: WBC 10.9 10^3/uL (4.0-10.5) H 03/24/20 13:00 RBC 4.81 10^6/uL (3.72-5.28) 03/24/20 13:00 Hgb 14.3 g/dL (12.0-15.5) 03/24/20 13:00 Hct 42.7 % (36.0-47.0) 03/24/20 13:00 MCV 89 fl (80-97) 03/24/20 13:00 MCH 29.8 pg (27.0-33.4) 03/24/20 13:00 MCHC 33.6 g/dL (32.0-36.0) 03/24/20 13:00 RDW 13.7 % (11.5-14.0) 03/24/20 13:00 Plt Count 286 10^3/uL (150-450) 03/24/20 13:00 Lymph % (Auto) 3.5 % (13-45) L 03/24/20 13:00 [place] % (Auto) 5.5 % (3-13) 03/24/20 13:00 Eos % (Auto) 2.9 % (0-6) 03/24/20 13:00 Baso % (Auto) 1.3 % (0-2) 03/24/20 13:00 Absolute Neuts (auto) 6.4 10^3/uL (1.7-8.2) 03/24/20 13:00 Absolute Lymphs (auto) 3.5 10^3/uL (0.5-4.7) 03/24/20 13:00 Absolute Monos (auto) 0.6 10^3/uL (0.1-1.4) 03/24/20 13:00 Absolute Eos (auto) 0.3 10^3/uL (0.0-0.6) 03/24/20 13:00 Absolute Basos (auto) 0.1 10^3/uL (0.0-0.2) 03/24/20 13:00 Seg Neutrophils % 58.5 % (42-78) 03/24/20 13:00 ESR 9 mm/hr (0-30) 03/24/20 18:20 PT 13.0 SEC (11.4-15.4) 03/24/20 13:00 INR 0.96 03/24/20 13:00 APTT 29.9 SEC (23.5-35.8) 03/24/20 13:00 Sodium 138.6 mmol/L (137-145) 03/24/20 13:00 Potassium 4.3 mmol/L (3.6-5.0) 03/24/20 13:00 Chloride 107 mmol/L (98-107) 03/24/20 13:00 Carbon Dioxide 26 mmol/L (22-30) 03/24/20 13:00 Anion Gap 6 (5-19) 03/24/20 13:00 BUN 14 mg/dL (7-20) 03/24/20 13:00 Creatinine 0.52 mg/dL (0.52-1.25) 03/24/20 13:00 Est GFR ( Amer) > 60 (>60) 03/24/20 13:00 Est GFR (MDRD) Non-Af > 60 (>60) 03/24/20 13:00 Glucose 112 mg/dL (75-110) H 03/24/20 13:00 Calcium 11.1 mg/dL (8.4-10.2) H 03/24/20 13:00 Magnesium 1.8 mg/dL (1.6-2.3) 03/24/20 18:20 Total Bilirubin 0.5 mg/dL (0.2-1.3) 03/24/20 13:00 Direct Bilirubin 0.0 mg/dL (0.0-0.4) 03/24/20 13:00 Neonat Total Bilirubin Not Reportable 03/24/20 13:00 Neonat Direct Bilirubin Not Reportable 03/24/20 13:00 Neonat Indirect Bili Not Reportable 03/24/20 13:00 AST 24 U/L (14-36) 03/24/20 13:00 ALT 20 U/L (<35) 03/24/20 13:00 Alkaline Phosphatase 96 U/L (38-126) 03/24/20 13:00 Creatine Kinase 41 U/L (30-135) 03/24/20 13:00 CK-MB (CK-2) 0.54 ng/mL (<4.55) 03/24/20 13:00 Troponin I 0.012 ng/mL 03/24/20 18:20 C-Reactive Protein < 5.0 mg/L (<10.0) 03/24/20 18:20 Total Protein 7.0 g/dL (6.3-8.2) 03/24/20 13:00 Albumin 4.2 g/dL (3.5-5.0) 03/24/20 13:00 Triglycerides 449 mg/dL (<150) H 03/25/20 06:11 Cholesterol 181.37 mg/dL (0-200) 03/25/20 06:11 LDL Cholesterol Direct 83 mg/dL (<100) 03/25/20 06:11 VLDL Cholesterol, Calc UNABLE TO CALCULATE 03/25/20 06:11 HDL Cholesterol 35 mg/dL (>40) L 03/25/20 06:11 Vitamin B12 677.0 pg/mL (239-931) 03/24/20 18:20 Folate 12.10 ng/mL (>2.76) 03/24/20 18:20 TSH 5.98 uIU/mL (0.47-4.68) H 03/24/20 18:20 Free T4 1.21 ng/dL (0.78-2.19) 03/24/20 18:20 Free T3 pg/mL 2.45 pg/mL (2.77-5.27) L 03/24/20 18:20 PTH Intact 70.9 pg/mL (10.0-65.0) H 03/24/20 18:20 RPR NONREACTIVE (NONREACTIVE) 03/24/20 18:20 Hepatitis A IgM Ab Negative (Negative) 03/24/20 18:20 Hep Bs Antigen Negative (Negative) 03/24/20 18:20 Hep B Core IgM Ab Negative (Negative) 03/24/20 18:20 Hepatitis C Antibody <0.1 s/co ratio (0.0-0.9) 03/24/20 18:20 03/24/20 03/24/20 13:00 18:20 CK-MB (CK-2) 0.54 Troponin I 0.012 0.012 Impressions: Head MRI 03/24/20 00:00 IMPRESSION: No acute abnormalities. Chest X-Ray 03/24/20 12:53 IMPRESSION: NO ACUTE RADIOGRAPHIC FINDING IN THE CHEST. Head CT 03/24/20 12:53 IMPRESSION: NORMAL BRAIN CT WITHOUT CONTRAST. EVIDENCE OF ACUTE STROKE: NO. Carotid Doppler Study 03/25/20 00:00 IMPRESSION: Soft plaque bilaterally. No hemodynamically significant stenosis. Plan Health Concerns: Chronic hyperparathyroidism with hypercalcemia. Risk for atherosclerotic disease Plan of Treatment: Medications as above. The patient has an appointment with an textiles printer that she has been waiting months for. Follow-up with primary care provider Goals: Decrease atherosclerotic risk factors which would include weight loss, good blood pressure control and more aggressive lipid management. Time Spent: Greater than 30 Minutes Stroke Is this a Stroke Patient?: Yes Stroke Pt being discharged on Anti-thrombolytic therapy?: Yes Stroke Pt being discharged on Anti-coagulation therapy?: No Reason(s) for not prescribing Anti-coagulation therapy:: Not indicated Stroke Pt being discharged on Statins?: Yes Acute Heart Failure - Is this a Heart Failure Patient?: No
[2020-03-26 14:33] LABS: ANTINUCLEAR ANTIBODIES Negative (Negative)
--- NOTE | 2020-03-26 19:53 | PDOC PROGRESS REPORT ---
Subjective Progress Note for:: 03/26/20 Subjective:: Patient was set to discharge. Unfortunately when family was here and was getting her out of bed she reportedly was going to fall. This was not witnessed by anyone except family. At this point we will delay discharge. Reason For Visit: TIA Physical Exam Vital Signs: Temp Pulse Resp BP Pulse Ox 97.4 F 62 16 121/94 H 100 03/26/20 15:27 03/26/20 16:00 03/26/20 16:00 03/26/20 16:00 03/26/20 16:00 Intake & Output 03/25/20 03/26/20 03/27/20 06:59 06:59 06:59 Intake Total 100 200 Output Total 0 300 Balance 100 -100 Weight 89.7 kg 90.4 kg General appearance: PRESENT: no acute distress, cooperative, well-developed Head exam: PRESENT: atraumatic, normocephalic Ear exam: PRESENT: normal external ear exam. ABSENT: bleeding, drainage Mouth exam: PRESENT: moist, tongue midline Respiratory exam: PRESENT: clear to auscultation rishabh, symmetrical, unlabored. ABSENT: prolonged expiratory phas, rales, rhonchi, tachypnea, wheezes Cardiovascular exam: PRESENT: RRR, +S1, +S2. ABSENT: bradycardia, diastolic murmur, irregular rhythm, systolic murmur, tachycardia GI/Abdominal exam: PRESENT: normal bowel sounds, soft. ABSENT: distended, tenderness Rectal exam: PRESENT: deferred Gentrourinary exam: ABSENT: indwelling catheter Extremities exam: ABSENT: pedal edema Musculoskeletal exam: PRESENT: normal inspection. ABSENT: deformity, dislocation Neurological exam: PRESENT: alert, awake, oriented to person, oriented to place, oriented to time, oriented to situation, CN II-XII grossly intact. ABSENT: altered Psychiatric exam: PRESENT: flat affect. ABSENT: agitated, anxious Focused psych exam: ABSENT: delusional, paranoid, restlessness Skin exam: PRESENT: dry, warm. ABSENT: rash Results Laboratory Results: 03/24/20 13:00 03/24/20 13:00 03/24/20 03/24/20 03/24/20 13:00 13:00 18:20 Creatine Kinase 41 CK-MB (CK-2) 0.54 Troponin I 0.012 0.012 Impressions: Head MRI 03/24/20 00:00 IMPRESSION: No acute abnormalities. Chest X-Ray 03/24/20 12:53 IMPRESSION: NO ACUTE RADIOGRAPHIC FINDING IN THE CHEST. Head CT 03/24/20 12:53 IMPRESSION: NORMAL BRAIN CT WITHOUT CONTRAST. EVIDENCE OF ACUTE STROKE: NO. Carotid Doppler Study 03/25/20 00:00 IMPRESSION: Soft plaque bilaterally. No hemodynamically significant stenosis. Assessment and Plan - Diagnosis (1) TIA (transient ischemic attack) Is this a current diagnosis for this admission?: Yes Plan: seen by PT. Recommend Home PT (2) Paresthesia Is this a current diagnosis for this admission?: Yes Plan: improved (3) Ataxia Is this a current diagnosis for this admission?: Yes Plan: still slightly unsteady. Will utilize walker with PT at home (4) Hypothyroidism Qualifiers: Hypothyroidism type: due to Zeenat's thyroiditis Qualified Code(s): E03.8 - Other specified hypothyroidism; E06.3 - Autoimmune thyroiditis Is this a current diagnosis for this admission?: Yes Plan: cont levothyroxine (5) Hypertension Qualifiers: Hypertension type: unspecified Qualified Code(s): I10 - Essential (primary) hypertension Is this a current diagnosis for this admission?: Yes Plan: excellent BP control (6) Hypercalcemia Is this a current diagnosis for this admission?: Yes Plan: Calcium normal (7) Hyperparathyroidism Is this a current diagnosis for this admission?: Yes Plan: PTH minimally elevated. This is no different from last year. - Time Time Spent with patient: Less than 15 minutes Medications reviewed and adjusted accordingly: Yes Anticipated Discharge Disposition: Home with Home Health Anticipated Discharge Timeframe: within 24 hours
[2020-03-26] MEDS: ATORVASTATIN CALCIUM 80 MG TABLET PO SCH (22:43)
[2020-03-27] MEDS: LEVOTHYROXINE SODIUM 0.025 MG TABLET PO SCH (06:25)
[2020-03-27] MEDS: LEVOTHYROXINE SODIUM 0.1 MG TABLET PO SCH (06:27)
[2020-03-27] MEDS: HEPARIN SOD (PORCINE) 5,000 UNIT/ML 1 ML VIAL SUBCUT SCH ×2 (06:35→15:15)
[2020-03-27 07:06] LABS: VITAMIN D 1,25 DIHYDROXY 61.7 pg/mL (19.9-79.3)
[2020-03-27 07:06] LABS: LYME DISEASE IGM AB <0.80 index (0.00-0.79)
[2020-03-27] MEDS: METOPROLOL SUCCINATE 50 MG TAB.SR.24H PO SCH (10:04)
[2020-03-27] MEDS: VALSARTAN 160 MG TABLET PO SCH (10:05)
[2020-03-27] MEDS: TICAGRELOR 90 MG TABLET PO SCH (10:06)
[2020-03-27] MEDS: GABAPENTIN 300 MG CAPSULE PO SCH (10:06)
[2020-03-27] MEDS: METFORMIN HCL 500 MG TABLET PO SCH (10:06)
[2020-03-27] MEDS: ASPIRIN 81 MG TABLET, CHEWABLE PO SCH (10:06)
[2020-03-27] MEDS: AMLODIPINE BESYLATE 10 MG TABLET PO SCH (10:06)
[2020-03-27] MEDS: FAMOTIDINE 20 MG TABLET PO SCH (15:14)
[2020-03-27 15:25] VITALS: BP 108/67
[2020-03-30] MEDS ORDERED: ERGOCALCIFEROL (VITAMIN D2) 50000 UNIT (1.25 MG) CAPSULE PO SCH (10:00)
== END 2020-03-27 15:35 | disposition home health service (06) ==
LOC: ER 12:46 → EH 17:02 → 3S 20:45
PROVIDERS: ADMIT Internal Medicine; ATTEND Hospitalist
DX: G45.9 Transient cerebral ischemic attack, unspecified (principal); R27.0 Ataxia, unspecified; R20.2 Paresthesia of skin; I10 Essential (primary) hypertension; E03.8 Other specified hypothyroidism; E21.2 Other hyperparathyroidism; R29.810 Facial weakness; R47.1 Dysarthria and anarthria; D72.829 Elevated white blood cell count, unspecified; F17.200 Nicotine dependence, unspecified, uncomplicated; E06.3 Autoimmune thyroiditis; R29.6 Repeated falls; I69.354 Hemiplegia and hemiparesis following cerebral infarction affecting left non-dominant side; G62.9 Polyneuropathy, unspecified; R51 Headache; R11.0 Nausea; M13.849 Other specified arthritis, unspecified hand; Z66 Do not resuscitate; R25.1 Tremor, unspecified; R56.9 Unspecified convulsions; R29.704 NIHSS score 4; Z79.890 Hormone replacement therapy; Z60.2 Problems related to living alone; Z79.82 Long term (current) use of aspirin; Z79.899 Other long term (current) drug therapy; Z82.3 Family history of stroke; Z79.02 Long term (current) use of antithrombotics/antiplatelets
CPT/HCPCS: 95819 ×2; 93005; 99291; 96374; 36415 ×2; 84439; 84425; 82553; 82607; 82550; 82746; 83735; 84443; 82525; 85025; 85652; 85610; 85730; 86140; 86592; 80053; 84484; 84630; 84481; 82652; 86038; 80061; 83970; 80074; 86618 ×2; 86617 ×2; 93880; 70553; 72141; 71045; 70450; 94799; 93010; 97110 ×2; 97116 ×3; 97163; 92523; 97165; A9576; A9270 ×38; J1644 ×4; J3490 ×4; J2405; G0378

== ENCOUNTER → 2020-09-13 | Outpatient (CLI) | payer MEDICARE ==
[~2020-09-13] MED LIST changes: -BUPIVACAINE HCL 0.5 % INJ/PF 30 ML SDV ONE; +COVID-19 VACCINE (PFIZER)/PF 30 MCG/0.3 ML VIAL IM ONE; +EPINEPHRINE INJ/PF 1 MG/1 ML AMPULE IM PRN; -LIDOCAINE 1% INJ-PF (10 MG/ML) 30 ML SDV ONE
--- OUTSIDE RECORDS SUMMARY | 2020-09-16 10:25 | XMS REPORT ---
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 of motion. FLUOROSCOPY TIME: 0 minutes 20 seconds. 10.95 micro richard meter squared PROCEDURE: Right SHOULDER INJECTION UNDER FLUOROSCOPY 13 hour prep was performed because of a history of contrast allergy. The skin overlying the shoulder was scrubbed with Betadine and draped in sterile fashion. Skin and subcutaneous anesthesia was carried out using a 25 gauge needle and 1% lidocaine. A 22 gauge spinal needle was directed under fluoroscopic guidance on one pass into the glenohumeral joint. 20 cc of a mixture of 0.1 cc MultiHance and dilute Isovue 200 was then used to fill the glenohumeral joint. IMPRESSION: Technically successful right shoulder injection for MRI. Electronically Signed By: Elias Musa M.D. On: 05/23/2018 15:46 Large Joint 2018-05-10 09:15:00 Karina Conley MD Injection/Arthrocentesis 05/10/2018 12:00 PM Large Joint Inj Date/Time: 05/10/2018 11:50 AM Performed by: KARINA CONLEY Authorized by: KARINA CONLEY Consent Given by:Patient Indications:Pain Location:Shoulder Site:R subacromial bursa Prep: patient was prepped and draped in usual sterile fashion Needle Size:25 G Needle Length:1.5 inches Approach:Anterolateral Ultrasound Guidance: No Fluoroscopic Guidance: No Arthrogram: No Medications:40 mg methylPREDNISolone acetate 40 MG/ML; 4 mL bupivacaine 0.25 % Aspiration Attempted: No Patient tolerance:Patient tolerated the procedure well with no immediate complications Bandaid applied. XR Shoulder Right 2018-05-05 08:59:35 AP axillary outl et view right shoulder obtained.?No glenohumeral or acromioclavicular joint arthritis is present.?Acromiohumeral distance is maintained.?Shoulder is located.?No fractures present. XR Cervical Spine 2 or 3 views 2018-05-05 08:59:06 AP lateral cervical spine reviewed.?Patient has degenerative disc disease at C5-6 and C6-7 with some facet arthritis present.?No hardware present in the cervical spine alignment intact Large Joint 2018-05-03 15:00:00 Devon Young Injection/Arthrocentesis ? 05/05/2018?9:02 AM Large Joint Inj Date/Time: 05/05/2018 9:01 AM Performed by: DEVON YOUNG Authorized by: DEVON YOUNG Consent Given by:?Patient Site marked: the procedure site was marked? Timeout: prior to procedure the correct patient, procedure, and site was verified? Indications:?Pain and diagnostic evaluation Location:?Shoulder Site:?R subacromial bursa Prep: patient was prepped and draped in usual sterile fashion? Needle Size:?18 G Needle Length:?1.5 inches Approach:?Posterior Ultrasound Guidance: No? Fluoroscopic Guidance: No? Arthrogram: No? Medications:?5 mL lidocaine 1 %; 9 mL bupivacaine 0.5 %; 40 mg methylPREDNISolone acetate 40 MG/ML Aspiration Attempted: No? Patient tolerance:?Patient tolerated the procedure well with no immediate complications CT LUMBAR SPINE W CONTRAST 2018-04-10 14:15:51 [facility] L DATA:Lumbosacral spondylosis without myelopathy. RIGHT lower thoracic pain. Diffusely weak RIGHT leg. Previous lumbar surgery. FLUOROSCOPY TIME:36 seconds corresponding to a Dose Area Product of 437.83 Gy*m2 PROCEDURE: LUMBAR PUNCTURE FOR THORACIC AND LUMBAR MYELOGRAM After thorough discussion of risks and benefits of the procedure including bleeding, infection, injury to nerves, blood vessels, adjacent structures as well as headache and CSF leak, written and oral informed consent was obtained. Consent was obtained by Dr. Jean Paul Ridley. Patient was positioned prone on the fluoroscopy table. Local anesthesia was provided with 1% lidocaine without epinephrine after prepped and draped in the usual sterile fashion. Puncture was performed at L4 using a 3 1/2 inch 22-gauge spinal needle via midline approach. Using a single pass through the dura, the needle was placed within the thecal sac, with return of clear CSF. 10 mL of Isovue-M 300 was injected into the thecal sac, with normal opacification of the nerve roots and cauda equina consistent with free flow within the subarachnoid space. The patient was then moved to the trendelenburg position and contrast flowed into the Thoracic spine region. I personally performed the lumbar puncture and administered the intrathecal contrast. I also personally supervised acquisition of the myelogram images. TECHNIQUE: Contiguous axial images were obtained through the Thoracic and Lumbar spine after the intrathecal infusion of infusion. Coronal and sagittal reconstructions were obtained of the axial image sets. FINDINGS: THORACIC AND LUMBAR MYELOGRAM FINDINGS: LUMBAR:Good opacification lumbar subarachnoid space. Previous ray cage fusion at L3-4 and L4-5. Previous posterolateral fusion L5-S1, non-instrumented. Previous PLIF L2-L3. No residual spinal stenosis throughout the L2 through S1 fusion segments. There is minor deformity of the thecal sac at L2-3, representing scarring. At L1-2 there is severe disc space narrowing, osseous spurring, with a shallow ventral defect. Near complete loss of interspace height with vacuum phenomenon. 2 mm retrolisthesis. There is moderate stenosis at this level which is exacerbated on upright AP radiograph. With patient standing, lateral flexion extension views demonstrate 2 mm retrolisthesis, stable from prone myelography. There is an associated ventral defect, representing soft disc material, which is increased with patient standing in extension contributing to worsened moderate stenosis. THORACIC: Good opacification of the thoracic subarachnoid space. Shallow ventral defect at T11-12. No thoracic compression deformity. No spinal stenosis or significant cord compression. CT THORACIC MYELOGRAM FINDINGS: Segmentation: Normal. Alignment:Normal except for trace anterolisthesis T3-T4 and T4-T5. Vertebrae: No worrisome osseous lesion. Spinal cord:Unremarkable. Paraspinal tissues: No evidence for lung lesion. BILATERAL adrenal adenomas, described on recent CT, RIGHT greater than LEFT. Disc levels: Unremarkable except for a small central protrusion at T11-12, and a shallow calcified protrusion at T12-L1, both noncompressive. Facet arthropathy is most pronounced at the T11-[address] LUMBAR MYELOGRAM FINDINGS: Segmentation: Normal. Alignment: 2 mm retrolisthesis L1-2 is facet mediated representing adjacent segment disease. Vertebrae: No worrisome osseous lesion.Solid arthrodesis L2-S1. Conus medullaris: Normal in size and location. Paraspinal tissues: No evidence for hydronephrosis or paravertebral mass. Tiny nonobstructing RIGHT renal calculus. Disc levels: L1-L2: Severe disc space narrowing. Posterior element hypertrophy representing adjacent segment disease. Advanced osseous spurring with vacuum phenomenon. Superimposed soft disc protrusion, partially calcified. Moderate stenosis. BILATERAL subarticular zone and foraminal zone narrowing affect the L1 and L2 nerve roots. Impingement of the L1 nerve roots in the extraforaminal zone related to osseous spurring, slightly worse on the RIGHT. L2-L3: Status post PLIF. Adequate posterior decompression. No impingement. Solid arthrodesis. L3-L4:Solid ray cage arthrodesis.No impingement. L4-L5:Solid ray cage arthrodesis.No impingement. L5-S1:Solid posterolateral fusion.No impingement. Compared with the prior myelography dated 10/03/2014, the disc degeneration at L1-2 has progressed, with further loss of interspace height, 2 mm retrolisthesis, and increasing prominence of a partially calcified central protrusion. There does not appear to be progression of the previously noted minor thoracic pathology. IMPRESSION: Solid L2 through S1 arthrodesis. 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 Moderate stenosis. BILATERAL L1 and L2 nerve root impingement. Minor thoracic disc pathology at T11-12 and T12-L1, similar to priors. BILATERAL adrenal adenomas. Please see [facility] CT report from 01/20/2018 for further detail. Electronically Signed By: Jean Paul Ridley M.D. On: 04/10/2018 14:15 Interface, Rad Results In - 04/10/2018 2:18 PM EDT CLINICAL DATA: Lumbosacral spondylosis without myelopathy. RIGHT lower thoracic pain. Diffusely weak RIGHT leg. Previous lumbar surgery. FLUOROSCOPY TIME: 36 seconds corresponding to a Dose Area Product of 437.83 Gy*m2 PROCEDURE: LUMBAR PUNCTURE FOR THORACIC AND LUMBAR MYELOGRAM After thorough discussion of risks and benefits of the procedure including bleeding, infection, injury to nerves, blood vessels, adjacent structures as well as headache and CSF leak, written and oral informed consent was obtained. Consent was obtained by Dr. Jean Paul Ridley. Patient was positioned prone on the fluoroscopy table. Local anesthesia was provided with 1% lidocaine without epinephrine after prepped and draped in the usual sterile fashion. Puncture was performed at L4 using a 3 1/2 inch 22-gauge spinal needle via midline approach. Using a single pass through the dura, the needle was placed within the thecal sac, with return of clear CSF. 10 mL of Isovue-M 300 was injected into the thecal sac, with normal opacification of the nerve roots and cauda equina consistent with free flow within the subarachnoid space. The patient was then moved to the trendelenburg position and contrast flowed into the Thoracic spine region. I personally performed the lumbar puncture and administered the intrathecal contrast. I also personally supervised acquisition of the myelogram images. TECHNIQUE: Contiguous axial images were obtained through the Thoracic and Lumbar spine after the intrathecal infusion of infusion. Coronal and sagittal reconstructions were obtained of the axial image sets. FINDINGS: THORACIC AND LUMBAR MYELOGRAM FINDINGS: LUMBAR: Good opacification lumbar subarachnoid space. Previous ray cage fusion at L3-4 and L4-5. Previous posterolateral fusion L5-S1, non-instrumented. Previous PLIF L2-L3. No residual spinal stenosis throughout the L2 through S1 fusion segments. There is minor deformity of the thecal sac at L2-3, representing scarring. At L1-2 there is severe disc space narrowing, osseous spurring, with a shallow ventral defect. Near complete loss of interspace height with vacuum phenomenon. 2 mm retrolisthesis. There is moderate stenosis at this level which is exacerbated on upright AP radiograph. With patient standing, lateral flexion extension views demonstrate 2 mm retrolisthesis, stable from prone myelography. There is an associated ventral defect, representing soft disc material, which is increased with patient standing in extension contributing to worsened moderate stenosis. THORACIC: Good opacification of the thoracic subarachnoid space. Shallow ventral defect at T11-12. No thoracic compression deformity. No spinal stenosis or significant cord compression. CT THORACIC MYELOGRAM FINDINGS: Segmentation: Normal. Alignment: Normal except for trace anterolisthesis T3-T4 and T4-T5. Vertebrae: No worrisome osseous lesion. Spinal cord: Unremarkable. Paraspinal tissues: No evidence for lung lesion. BILATERAL adrenal adenomas, described on recent CT, RIGHT greater than LEFT. Disc levels: Unremarkable except for a small central protrusion at T11-12, and a shallow calcified protrusion at T12-L1, both noncompressive. Facet arthropathy is most pronounced at the T11-[address] LUMBAR MYELOGRAM FINDINGS: Segmentation: Normal. Alignment: 2 mm retrolisthesis L1-2 is facet mediated representing adjacent segment disease. Vertebrae: No worrisome osseous lesion.Solid arthrodesis L2-S1. Conus medullaris: Normal in size and location. Paraspinal tissues: No evidence for hydronephrosis or paravertebral mass. Tiny nonobstructing RIGHT renal calculus. Disc levels: L1-L2: Severe disc space narrowing. Posterior element hypertrophy representing adjacent segment disease. Advanced osseous spurring with vacuum phenomenon. Superimposed soft disc protrusion, partially calcified. Moderate stenosis. BILATERAL subarticular zone and foraminal zone narrowing affect the L1 and L2 nerve roots. Impingement of the L1 nerve roots in the extraforaminal zone related to osseous spurring, slightly worse on the RIGHT. L2-L3: Status post PLIF. Adequate posterior decompression. No impingement. Solid arthrodesis. L3-L4: Solid ray cage arthrodesis. No impingement. L4-L5: Solid ray cage arthrodesis. No impingement. L5-S1: Solid posterolateral fusion. No impingement. Compared with the prior myelography dated 10/03/2014, the disc degeneration at L1-2 has progressed, with further loss of interspace height, 2 mm retrolisthesis, and increasing prominence of a partially calcified central protrusion. There does not appear to be progression of the previously noted minor thoracic pathology. IMPRESSION: Solid L2 through S1 arthrodesis. 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 Moderate stenosis. BILATERAL L1 and L2 nerve root impingement. Minor thoracic disc pathology at T11-12 and T12-L1, similar to priors. BILATERAL adrenal adenomas. Please see [facility] CT report from 01/20/2018 for further detail. Electronically Signed By: Jean Paul Ridley M.D. On: 04/10/2018 14:15 CT THORACIC SPINE W CONTRAST 2018-04-10 14:15:51 CLINI O[facility]YRA DATA:Lumbosacral spondylosis without myelopathy. RIGHT lower thoracic pain. Diffusely weak RIGHT leg. Previous lumbar surgery. FLUOROSCOPY TIME:36 seconds corresponding to a Dose Area Product of 437.83 Gy*m2 PROCEDURE: LUMBAR PUNCTURE FOR THORACIC AND LUMBAR MYELOGRAM After thorough discussion of risks and benefits of the procedure including bleeding, infection, injury to nerves, blood vessels, adjacent structures as well as headache and CSF leak, written and oral informed consent was obtained. Consent was obtained by Dr. Jean Paul Ridley. Patient was positioned prone on the fluoroscopy table. Local anesthesia was provided with 1% lidocaine without epinephrine after prepped and draped in the usual sterile fashion. Puncture was performed at L4 using a 3 1/2 inch 22-gauge spinal needle via midline approach. Using a single pass through the dura, the needle was placed within the thecal sac, with return of clear CSF. 10 mL of Isovue-M 300 was injected into the thecal sac, with normal opacification of the nerve roots and cauda equina consistent with free flow within the subarachnoid space. The patient was then moved to the trendelenburg position and contrast flowed into the Thoracic spine region. I personally performed the lumbar puncture and administered the intrathecal contrast. I also personally supervised acquisition of the myelogram images. TECHNIQUE: Contiguous axial images were obtained through the Thoracic and Lumbar spine after the intrathecal infusion of infusion. Coronal and sagittal reconstructions were obtained of the axial image sets. FINDINGS: THORACIC AND LUMBAR MYELOGRAM FINDINGS: LUMBAR:Good opacification lumbar subarachnoid space. Previous ray cage fusion at L3-4 and L4-5. Previous posterolateral fusion L5-S1, non-instrumented. Previous PLIF L2-L3. No residual spinal stenosis throughout the L2 through S1 fusion segments. There is minor deformity of the thecal sac at L2-3, representing scarring. At L1-2 there is severe disc space narrowing, osseous spurring, with a shallow ventral defect. Near complete loss of interspace height with vacuum phenomenon. 2 mm retrolisthesis. There is moderate stenosis at this level which is exacerbated on upright AP radiograph. With patient standing, lateral flexion extension views demonstrate 2 mm retrolisthesis, stable from prone myelography. There is an associated ventral defect, representing soft disc material, which is increased with patient standing in extension contributing to worsened moderate stenosis. THORACIC: Good opacification of the thoracic subarachnoid space. Shallow ventral defect at T11-12. No thoracic compression deformity. No spinal stenosis or significant cord compression. CT THORACIC MYELOGRAM FINDINGS: Segmentation: Normal. Alignment:Normal except for trace anterolisthesis T3-T4 and T4-T5. Vertebrae: No worrisome osseous lesion. Spinal cord:Unremarkable. Paraspinal tissues: No evidence for lung lesion. BILATERAL adrenal adenomas, described on recent CT, RIGHT greater than LEFT. Disc levels: Unremarkable except for a small central protrusion at T11-12, and a shallow calcified protrusion at T12-L1, both noncompressive. Facet arthropathy is most pronounced at the T11-[address] LUMBAR MYELOGRAM FINDINGS: Segmentation: Normal. Alignment: 2 mm retrolisthesis L1-2 is facet mediated representing adjacent segment disease. Vertebrae: No worrisome osseous lesion.Solid arthrodesis L2-S1. Conus medullaris: Normal in size and location. Paraspinal tissues: No evidence for hydronephrosis or paravertebral mass. Tiny nonobstructing RIGHT renal calculus. Disc levels: L1-L2: Severe disc space narrowing. Posterior element hypertrophy representing adjacent segment disease. Advanced osseous spurring with vacuum phenomenon. Superimposed soft disc protrusion, partially calcified. Moderate stenosis. BILATERAL subarticular zone and foraminal zone narrowing affect the L1 and L2 nerve roots. Impingement of the L1 nerve roots in the extraforaminal zone related to osseous spurring, slightly worse on the RIGHT. L2-L3: Status post PLIF. Adequate posterior decompression. No impingement. Solid arthrodesis. L3-L4:Solid ray cage arthrodesis.No impingement. L4-L5:Solid ray cage arthrodesis.No impingement. L5-S1:Solid posterolateral fusion.No impingement. Compared with the prior myelography dated 10/03/2014, the disc degeneration at L1-2 has progressed, with further loss of interspace height, 2 mm retrolisthesis, and increasing prominence of a partially calcified central protrusion. There does not appear to be progression of the previously noted minor thoracic pathology. IMPRESSION: Solid L2 through S1 arthrodesis. 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 Moderate stenosis. BILATERAL L1 and L2 nerve root impingement. Minor thoracic disc pathology at T11-12 and T12-L1, similar to priors. BILATERAL adrenal adenomas. Please see [facility] CT report from 01/20/2018 for further detail. Electronically Signed By: Jean Paul Ridley M.D. On: 04/10/2018 14:15 Interface, Rad Results In - 04/10/2018 2:18 PM EDT CLINICAL DATA: Lumbosacral spondylosis without myelopathy. RIGHT lower thoracic pain. Diffusely weak RIGHT leg. Previous lumbar surgery. FLUOROSCOPY TIME: 36 seconds corresponding to a Dose Area Product of 437.83 Gy*m2 PROCEDURE: LUMBAR PUNCTURE FOR THORACIC AND LUMBAR MYELOGRAM After thorough discussion of risks and benefits of the procedure including bleeding, infection, injury to nerves, blood vessels, adjacent structures as well as headache and CSF leak, written and oral informed consent was obtained. Consent was obtained by Dr. Jean Paul Ridley. Patient was positioned prone on the fluoroscopy table. Local anesthesia was provided with 1% lidocaine without epinephrine after prepped and draped in the usual sterile fashion. Puncture was performed at L4 using a 3 1/2 inch 22-gauge spinal needle via midline approach. Using a single pass through the dura, the needle was placed within the thecal sac, with return of clear CSF. 10 mL of Isovue-M 300 was injected into the thecal sac, with normal opacification of the nerve roots and cauda equina consistent with free flow within the subarachnoid space. The patient was then moved to the trendelenburg position and contrast flowed into the Thoracic spine region. I personally performed the lumbar puncture and administered the intrathecal contrast. I also personally supervised acquisition of the myelogram images. TECHNIQUE: Contiguous axial images were obtained through the Thoracic and Lumbar spine after the intrathecal infusion of infusion. Coronal and sagittal reconstructions were obtained of the axial image sets. FINDINGS: THORACIC AND LUMBAR MYELOGRAM FINDINGS: LUMBAR: Good opacification lumbar subarachnoid space. Previous ray cage fusion at L3-4 and L4-5. Previous posterolateral fusion L5-S1, non-instrumented. Previous PLIF L2-L3. No residual spinal stenosis throughout the L2 through S1 fusion segments. There is minor deformity of the thecal sac at L2-3, representing scarring. At L1-2 there is severe disc space narrowing, osseous spurring, with a shallow ventral defect. Near complete loss of interspace height with vacuum phenomenon. 2 mm retrolisthesis. There is moderate stenosis at this level which is exacerbated on upright AP radiograph. With patient standing, lateral flexion extension views demonstrate 2 mm retrolisthesis, stable from prone myelography. There is an associated ventral defect, representing soft disc material, which is increased with patient standing in extension contributing to worsened moderate stenosis. THORACIC: Good opacification of the thoracic subarachnoid space. Shallow ventral defect at T11-12. No thoracic compression deformity. No spinal stenosis or significant cord compression. CT THORACIC MYELOGRAM FINDINGS: Segmentation: Normal. Alignment: Normal except for trace anterolisthesis T3-T4 and T4-T5. Vertebrae: No worrisome osseous lesion. Spinal cord: Unremarkable. Paraspinal tissues: No evidence for lung lesion. BILATERAL adrenal adenomas, described on recent CT, RIGHT greater than LEFT. Disc levels: Unremarkable except for a small central protrusion at T11-12, and a shallow calcified protrusion at T12-L1, both noncompressive. Facet arthropathy is most pronounced at the T11-[address] LUMBAR MYELOGRAM FINDINGS: Segmentation: Normal. Alignment: 2 mm retrolisthesis L1-2 is facet mediated representing adjacent segment disease. Vertebrae: No worrisome osseous lesion.Solid arthrodesis L2-S1. Conus medullaris: Normal in size and location. Paraspinal tissues: No evidence for hydronephrosis or paravertebral mass. Tiny nonobstructing RIGHT renal calculus. Disc levels: L1-L2: Severe disc space narrowing. Posterior element hypertrophy representing adjacent segment disease. Advanced osseous spurring with vacuum phenomenon. Superimposed soft disc protrusion, partially calcified. Moderate stenosis. BILATERAL subarticular zone and foraminal zone narrowing affect the L1 and L2 nerve roots. Impingement of the L1 nerve roots in the extraforaminal zone related to osseous spurring, slightly worse on the RIGHT. L2-L3: Status post PLIF. Adequate posterior decompression. No impingement. Solid arthrodesis. L3-L4: Solid ray cage arthrodesis. No impingement. L4-L5: Solid ray cage arthrodesis. No impingement. L5-S1: Solid posterolateral fusion. No impingement. Compared with the prior myelography dated 10/03/2014, the disc degeneration at L1-2 has progressed, with further loss of interspace height, 2 mm retrolisthesis, and increasing prominence of a partially calcified central protrusion. There does not appear to be progression of the previously noted minor thoracic pathology. IMPRESSION: Solid L2 through S1 arthrodesis. 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 Moderate stenosis. BILATERAL L1 and L2 nerve root impingement. Minor thoracic disc pathology at T11-12 and T12-L1, similar to priors. BILATERAL adrenal adenomas. Please see [facility] CT report from 01/20/2018 for further detail. Electronically Signed By: Jean Paul Ridley M.D. On: 04/10/2018 14:15 DG MYELOGRAPHY LUMBAR INJ MULTI 2018-04-10 14:15:51 CL INICAL REGION DATA:Lumbosacral spondylosis without myelopathy. RIGHT lower thoracic pain. Diffusely weak RIGHT leg. Previous lumbar surgery. FLUOROSCOPY TIME:36 seconds corresponding to a Dose Area Product of 437.83 Gy*m2 PROCEDURE: LUMBAR PUNCTURE FOR THORACIC AND LUMBAR MYELOGRAM After thorough discussion of risks and benefits of the procedure including bleeding, infection, injury to nerves, blood vessels, adjacent structures as well as headache and CSF leak, written and oral informed consent was obtained. Consent was obtained by Dr. Jean Paul Ridley. Patient was positioned prone on the fluoroscopy table. Local anesthesia was provided with 1% lidocaine without epinephrine after prepped and draped in the usual sterile fashion. Puncture was performed at L4 using a 3 1/2 inch 22-gauge spinal needle via midline approach. Using a single pass through the dura, the needle was placed within the thecal sac, with return of clear CSF. 10 mL of Isovue-M 300 was injected into the thecal sac, with normal opacification of the nerve roots and cauda equina consistent with free flow within the subarachnoid space. The patient was then moved to the trendelenburg position and contrast flowed into the Thoracic spine region. I personally performed the lumbar puncture and administered the intrathecal contrast. I also personally supervised acquisition of the myelogram images. TECHNIQUE: Contiguous axial images were obtained through the Thoracic and Lumbar spine after the intrathecal infusion of infusion. Coronal and sagittal reconstructions were obtained of the axial image sets. FINDINGS: THORACIC AND LUMBAR MYELOGRAM FINDINGS: LUMBAR:Good opacification lumbar subarachnoid space. Previous ray cage fusion at L3-4 and L4-5. Previous posterolateral fusion L5-S1, non-instrumented. Previous PLIF L2-L3. No residual spinal stenosis throughout the L2 through S1 fusion segments. There is minor deformity of the thecal sac at L2-3, representing scarring. At L1-2 there is severe disc space narrowing, osseous spurring, with a shallow ventral defect. Near complete loss of interspace height with vacuum phenomenon. 2 mm retrolisthesis. There is moderate stenosis at this level which is exacerbated on upright AP radiograph. With patient standing, lateral flexion extension views demonstrate 2 mm retrolisthesis, stable from prone myelography. There is an associated ventral defect, representing soft disc material, which is increased with patient standing in extension contributing to worsened moderate stenosis. THORACIC: Good opacification of the thoracic subarachnoid space. Shallow ventral defect at T11-12. No thoracic compression deformity. No spinal stenosis or significant cord compression. CT THORACIC MYELOGRAM FINDINGS: Segmentation: Normal. Alignment:Normal except for trace anterolisthesis T3-T4 and T4-T5. Vertebrae: No worrisome osseous lesion. Spinal cord:Unremarkable. Paraspinal tissues: No evidence for lung lesion. BILATERAL adrenal adenomas, described on recent CT, RIGHT greater than LEFT. Disc levels: Unremarkable except for a small central protrusion at T11-12, and a shallow calcified protrusion at T12-L1, both noncompressive. Facet arthropathy is most pronounced at the T11-[address] LUMBAR MYELOGRAM FINDINGS: Segmentation: Normal. Alignment: 2 mm retrolisthesis L1-2 is facet mediated representing adjacent segment disease. Vertebrae: No worrisome osseous lesion.Solid arthrodesis L2-S1. Conus medullaris: Normal in size and location. Paraspinal tissues: No evidence for hydronephrosis or paravertebral mass. Tiny nonobstructing RIGHT renal calculus. Disc levels: L1-L2: Severe disc space narrowing. Posterior element hypertrophy representing adjacent segment disease. Advanced osseous spurring with vacuum phenomenon. Superimposed soft disc protrusion, partially calcified. Moderate stenosis. BILATERAL subarticular zone and foraminal zone narrowing affect the L1 and L2 nerve roots. Impingement of the L1 nerve roots in the extraforaminal zone related to osseous spurring, slightly worse on the RIGHT. L2-L3: Status post PLIF. Adequate posterior decompression. No impingement. Solid arthrodesis. L3-L4:Solid ray cage arthrodesis.No impingement. L4-L5:Solid ray cage arthrodesis.No impingement. L5-S1:Solid posterolateral fusion.No impingement. Compared with the prior myelography dated 10/03/2014, the disc degeneration at L1-2 has progressed, with further loss of interspace height, 2 mm retrolisthesis, and increasing prominence of a partially calcified central protrusion. There does not appear to be progression of the previously noted minor thoracic pathology. IMPRESSION: Solid L2 through S1 arthrodesis. 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 Moderate stenosis. BILATERAL L1 and L2 nerve root impingement. Minor thoracic disc pathology at T11-12 and T12-L1, similar to priors. BILATERAL adrenal adenomas. Please see [facility] CT report from 01/20/2018 for further detail. Electronically Signed By: Jean Paul Ridley M.D. On: 04/10/2018 14:15 Interface, Rad Results In - 04/10/2018 2:18 PM EDT CLINICAL DATA: Lumbosacral spondylosis without myelopathy. RIGHT lower thoracic pain. Diffusely weak RIGHT leg. Previous lumbar surgery. FLUOROSCOPY TIME: 36 seconds corresponding to a Dose Area Product of 437.83 Gy*m2 PROCEDURE: LUMBAR PUNCTURE FOR THORACIC AND LUMBAR MYELOGRAM After thorough discussion of risks and benefits of the procedure including bleeding, infection, injury to nerves, blood vessels, adjacent structures as well as headache and CSF leak, written and oral informed consent was obtained. Consent was obtained by Dr. Jean Paul Ridley. Patient was positioned prone on the fluoroscopy table. Local anesthesia was provided with 1% lidocaine without epinephrine after prepped and draped in the usual sterile fashion. Puncture was performed at L4 using a 3 1/2 inch 22-gauge spinal needle via midline approach. Using a single pass through the dura, the needle was placed within the thecal sac, with return of clear CSF. 10 mL of Isovue-M 300 was injected into the thecal sac, with normal opacification of the nerve roots and cauda equina consistent with free flow within the subarachnoid space. The patient was then moved to the trendelenburg position and contrast flowed into the Thoracic spine region. I personally performed the lumbar puncture and administered the intrathecal contrast. I also personally supervised acquisition of the myelogram images. TECHNIQUE: Contiguous axial images were obtained through the Thoracic and Lumbar spine after the intrathecal infusion of infusion. Coronal and sagittal reconstructions were obtained of the axial image sets. FINDINGS: THORACIC AND LUMBAR MYELOGRAM FINDINGS: LUMBAR: Good opacification lumbar subarachnoid space. Previous ray cage fusion at L3-4 and L4-5. Previous posterolateral fusion L5-S1, non-instrumented. Previous PLIF L2-L3. No residual spinal stenosis throughout the L2 through S1 fusion segments. There is minor deformity of the thecal sac at L2-3, representing scarring. At L1-2 there is severe disc space narrowing, osseous spurring, with a shallow ventral defect. Near complete loss of interspace height with vacuum phenomenon. 2 mm retrolisthesis. There is moderate stenosis at this level which is exacerbated on upright AP radiograph. With patient standing, lateral flexion extension views demonstrate 2 mm retrolisthesis, stable from prone myelography. There is an associated ventral defect, representing soft disc material, which is increased with patient standing in extension contributing to worsened moderate stenosis. THORACIC: Good opacification of the thoracic subarachnoid space. Shallow ventral defect at T11-12. No thoracic compression deformity. No spinal stenosis or significant cord compression. CT THORACIC MYELOGRAM FINDINGS: Segmentation: Normal. Alignment: Normal except for trace anterolisthesis T3-T4 and T4-T5. Vertebrae: No worrisome osseous lesion. Spinal cord: Unremarkable. Paraspinal tissues: No evidence for lung lesion. BILATERAL adrenal adenomas, described on recent CT, RIGHT greater than LEFT. Disc levels: Unremarkable except for a small central protrusion at T11-12, and a shallow calcified protrusion at T12-L1, both noncompressive. Facet arthropathy is most pronounced at the T11-[address] LUMBAR MYELOGRAM FINDINGS: Segmentation: Normal. Alignment: 2 mm retrolisthesis L1-2 is facet mediated representing adjacent segment disease. Vertebrae: No worrisome osseous lesion.Solid arthrodesis L2-S1. Conus medullaris: Normal in size and location. Paraspinal tissues: No evidence for hydronephrosis or paravertebral mass. Tiny nonobstructing RIGHT renal calculus. Disc levels: L1-L2: Severe disc space narrowing. Posterior element hypertrophy representing adjacent segment disease. Advanced osseous spurring with vacuum phenomenon. Superimposed soft disc protrusion, partially calcified. Moderate stenosis. BILATERAL subarticular zone and foraminal zone narrowing affect the L1 and L2 nerve roots. Impingement of the L1 nerve roots in the extraforaminal zone related to osseous spurring, slightly worse on the RIGHT. L2-L3: Status post PLIF. Adequate posterior decompression. No impingement. Solid arthrodesis. L3-L4: Solid ray cage arthrodesis. No impingement. L4-L5: Solid ray cage arthrodesis. No impingement. L5-S1: Solid posterolateral fusion. No impingement. Compared with the prior myelography dated 10/03/2014, the disc degeneration at L1-2 has progressed, with further loss of interspace height, 2 mm retrolisthesis, and increasing prominence of a partially calcified central protrusion. There does not appear to be progression of the previously noted minor thoracic pathology. IMPRESSION: Solid L2 through S1 arthrodesis. 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 Moderate stenosis. BILATERAL L1 and L2 nerve root impingement. Minor thoracic disc pathology at T11-12 and T12-L1, similar to priors. BILATERAL adrenal adenomas. Please see [facility] CT report from 01/20/2018 for further detail. Electronically Signed By: Jean Paul Ridley M.D. On: 04/10/2018 14:15 Assessments Condition Name Status Diagnosis Date Treating Clinici an Chronic pain syndrome Active 2019-07-17 11:57:53 Degeneration of lumbar intervertebral Active 2019-07-17 11:57:53 disc Lumbar radiculopathy Active 2019-07-17 11:57:53 Low back pain Active 2019-07-17 11:57:53 Prolapsed lumbar intervertebral disc Active 2019-07-17 11:57:53 with sciatica Sacroiliac joint pain Active 2019-07-17 12:11:53 Medication monitoring Active 2019-07-17 11:58:01 Low back pain Active 2019-06-14 15:36:58 Lumbar disc prolapse with radiculopathy Active 15:45:29 Low back pain Active 2019-05-01 13:41:07 Lumbar disc prolapse with radiculopathy Active 14:25:38 Low back pain Active 2019-03-20 17:04:03 Lumbosacral spondylosis without Active 2019-03-20 17:31 :37 myelopathy Spondylosis without myelopathy Active 2019-03-20 17:31: 37 Low back pain Active 2019-02-14 07:59:43 Lumbosacral spondylosis without Active 2019-02-14 08:27 :54 myelopathy Spondylosis without myelopathy Active 2019-02-14 09:30: 54 Low back pain Active 2019-02-07 09:40:22 Pain in right hip joint Active 2019-02-07 09:40:32 Lumbosacral spondylosis without Active 2019-02-07 10:13 :39 myelopathy Spondylosis without myelopathy Active 2019-02-07 10:13: 45 Femoral acetabular impingement Active 2019-02-07 10:14: 03 Candidiasis of mouth Active 2019-02-07 10:29:28 Low back pain Active 2019-01-23 14:21:17 Degeneration of lumbar intervertebral Active 2019-01-23 14:49:43 disc Sacroiliac joint pain Active 2019-01-23 14:57:48 Trochanteric bursitis of right hip Active 2019-01-23 14 :57:53 History of operative procedure on Active 2019-01-23 14: 58:10 lumbar spinal structure Lumbosacral spondylosis without Active 2019-01-23 15:13 :34 myelopathy Encounters Start End Encounter Admission Attending Care Care Encounter Date/Time Date/Time Type Type Clinicians Facility Department ID 2019-07-31 2019-07-31 [facility] [id number] 00:00:00 00:00:00 2019-07-17 2019-07-17 Abdoul Sharma [id number] 00:00:00 00:00:00 MD Guevara: Surgical [facility] [id number], [place] [address], Ph. 2019-06-14 2019-06-14 Artem Sanchezt [id number] 00:00:00 00:00:00 Vasyl DO: Surgical [facility] [id number], [place] [address], Ph. 2019-05-01 2019-05-01 Artem Sanchezt [id number] 00:00:00 00:00:00 Vasyl DO: Surgical Surgical [id number], [place] [address], Ph. 2019-03-20 2019-03-20 [facility] [id number] 00:00:00 00:00:00 2019-03-20 2019-03-20 Artem Sanchezt [id number] 00:00:00 00:00:00 Vasyl DO: Surgical [facility] [id number], [place] [address], Ph. 2019-02-14 2019-02-14 Artem Sanchezt [id number] 00:00:00 00:00:00 Vasyl DO: Surgical Surgical [id number], [place] [address], Ph. 2019-02-07 2019-02-07 Artem Sanchezt [id number] 00:00:00 00:00:00 Vasyl DO: Surgical Surgical [id number], [place] [address], Ph. 2019-01-23 2019-01-23 Artem Sharma [id number] 00:00:00 00:00:00 DO Vasyl: Surgical Surgical [id number] [facility], [address], [place] [address], Ph. 2019-01-16 2019-01-16 [facility] [id number] 00:00:00 00:00:00 2019-01-10 2019-01-10 [facility] [id number] 00:00:00 00:00:00 2018-12-01 2018-12-01 [facility] [id number] 00:00:00 00:00:00 2018-11-16 2018-11-16 [facility] [id number] 00:00:00 00:00:00 2018-11-15 2018-11-15 [facility] [id number] 00:00:00 00:00:00 2018-11-13 2018-11-13 [facility] YOUNG, [facility] [id number] 14:33:37 14:33:37 DEVON 2018-11-01 2018-11-01 [facility] [id number] 00:00:00 00:00:00 2018-09-13 2018-09-13 [facility] YOUNG, [facility] [id number] 13:14:45 14:02:43 DEVON 2018-09-04 2018-09-04 [facility] [id number] 00:00:00 00:00:00 2018-08-31 2018-08-31 [facility] CONLEY, [facility] [id number] 08:35:32 10:08:33 KARINA 2018-08-24 2018-08-24 [facility] JUNIOR [facility] [id number] 08:39:54 09:59:57 KARINA 2018-08-24 2018-08-24 [facility] JUNIOR [facility] [id number] 08:56:05 09:09:24 KARINA 2018-08-10 2018-08-10 [facility] MENA [facility] [id number] 09:40:14 11:16:04 JOSE MANUEL 2018-07-28 2018-07-28 OUT [facility], [facility] [id number] 08:41:03 13:17:25 DEVON 2018-07-28 2018-07-28 [facility] CONLEY, [facility] [id number] 08:30:56 10:11:56 KARINA 2018-06-16 2018-06-16 [facility] CONLEY, [facility] [id number] 08:33:54 09:58:45 KARINA 2018-06-01 2018-06-01 [facility] EL HECTOR, [facility] [id number] 08:41:41 09:02:23 DEVON 2018-06-01 2018-06-01 [facility]patient [facility] [id number] 08:41:41 09:02:23 2018-05-23 2018-05-23 OUT [facility], [facility] [id number] 15:01:59 23:59:00 DEVON 2018-05-23 2018-05-23 [facility]patient [facility] [id number] 15:01:59 23:59:00 2018-05-23 2018-05-23 OUT [facility], [facility] [id number] 15:01:38 23:59:00 DEVON 2018-05-23 2018-05-23 [facility]patient [facility] [id number] 15:01:38 23:59:00 2018-05-10 2018-05-10 [facility] CONLEY, [facility] [id number] 09:19:11 11:59:02 KARINA 2018-05-10 2018-05-10 [facility]patient [facility] [id number] 09:19:11 11:59:02 2018-05-08 2018-05-08 [facility] [id number] 00:00:00 00:00:00 2018-05-03 2018-05-03 [facility] EL HECTOR, [facility] [id number] 14:46:23 16:53:28 DEVON 2018-05-03 2018-05-03 Outpatient [facility] [id number] 14:46:23 16:53:28 2018-05-03 2018-05-03 OUT [facility], [facility] [id number] 15:14:51 15:24:18 DEVON 2018-05-03 2018-05-03 OUT [facility] YOUNG, [facility] [id number] 15:14:50 15:24:02 DEVON 2018-04-10 2018-04-10 OUT [facility] CONLEY, [facility] [id number] 10:22:54 23:59:00 KARINA 2018-04-10 2018-04-10 [facility] [id number] 10:22:54 23:59:00 2018-04-10 2018-04-10 OUT [facility] CONLEY, [facility] [id number] 10:22:43 23:59:00 KARINA 2018-04-10 2018-04-10 [facility]patient [facility] [id number] 10:22:43 23:59:00 2018-04-10 2018-04-10 OUT [facility] CONLEY, [facility] [id number] 09:57:40 10:21:00 KARINA 2018-04-10 2018-04-10 [facility] [id number] 09:57:40 10:21:00 2018-03-16 2018-03-16 [facility] CONLEY, [facility] [id number] 08:26:41 09:33:42 KARINA 2018-02-06 2018-02-06 Outpatient [facility] [id number] 00:00:00 00:00:00 2018-02-01 2018-02-01 [facility] GOODE, [facility] [id number] 13:30:11 15:42:47 RADHA 2018-01-20 2018-01-20 EMS ER GIAN, [facility] [id number] 15:23:00 23:53:00 MARA 2018-01-20 2018-01-20 [facility]OC EL RC, [facility] [id number] 14:14:25 14:14:25 RANJIT 2017-12-29 2017-12-29 [facility] JASE, [facility] [id number] 09:59:22 09:59:22 JAYDEN 2017-12-23 2017-12-23 [facility] GEOVANNI, [facility] [id number] 08:54:12 09:54:33 JOSE J 2017-12-23 2017-12-23 OUT [facility] GALARZA, [facility] [id number] 09:39:17 09:39:17 JOSE J 2017-12-15 2017-12-15 [facility] CONLEY [facility] [id number] 08:24:55 09:28:33 KARINA 2017-12-04 2017-12-04 OUT [facility] CONLEY [facility] [id number] 09:08:06 23:59:00 KARINA 2017-11-24 2017-11-24 OUT [facility] CONLEY [facility] [id number] 09:18:10 13:10:51 KARINA 2017-11-24 2017-11-24 [facility] CONLEY [facility] [id number] 08:01:16 10:23:38 KARINA 2017-11-14 2017-11-14 [facility] ZAVALA [facility] [id number] 14:54:23 00:00:00 NENITA 2017-09-27 2017-09-27 [facility] GALARZA [facility] [id number] 14:12:00 15:17:08 JOSE J 2017-09-27 2017-09-27 OUT [facility] GALARZA [facility] [id number] 15:06:15 15:06:15 HAZEN 2017-09-23 2017-09-23 OUT [facility] CONLEY [facility] [id number] 09:08:29 09:55:04 KARINA 2017-09-23 2017-09-23 [facility] CONLEY [facility] [id number] 08:16:55 08:16:55 KARINA 2017-04-12 2017-04-12 OUT [facility] [id number] 12:41:00 13:53:02 YARIEL 2012-02-20 2012-02-20 Outpatient [facility] [id number] 00:00:00 00:00:00 Immunizations Ordered Immunization Filled Immunization Date Status Commen ts Refusal Reason Name Name influenza, 2019-05-25 Completed injectable, 00:00:00 quadrivalent Influenza,inj,Quad 2018-08-10 Completed PF,6+ Mos 00:00:00 influenza, 2018-03-22 Completed injectable, 00:00:00 quadrivalent Influenza-Unspecifie 2017-04-12 Completed d 00:00:00 Zoster 2017-04-12 Completed 00:00:00 Influenza-Unspecifie 2016-04-22 Completed d 00:00:00 Pneumococcal 2015-09-24 Completed Polysaccharide-23 00:00:00 Tdap 2015-07-04 Completed 00:00:00 Influenza-Unspecifie 2015-05-21 Completed d 00:00:00 Influenza,inj,Quad 2014-05-08 Completed PF,6+ Mos 00:00:00 Influenza Split 2013-05-09 Completed 00:00:00 Influenza Split 2012-06-09 Completed 00:00:00 Influenza Whole 2010-05-19 Completed 00:00:00 Influenza Whole 2009-05-26 Completed 00:00:00 Influenza Whole 2008-05-27 Completed 00:00:00 Pneumococcal 2007-06-22 Completed Polysaccharide-23 00:00:00 Td 2005-01-20 Completed 00:00:00 Payers Payer Name Policy Type Policy Number Effective Date Expiration D ate [facility] MEDIC[facility] 103 [id number] 2015 00:00:00 Plan of Treatment Planned Activity Planned Date Details Comments Future Scheduled Test [code = ] Future Scheduled Test [code = ] Future Scheduled Test [code = ] Future Scheduled Test [code = ] Future Scheduled Test [code = ] Future Scheduled Test [code = ] Future Scheduled Test [code = ] Future Scheduled Test [code = ] Future Scheduled Test [code = ] Future Scheduled Test [code = ] Future Scheduled Test [code = ] Social History Social Habit Start Date Stop Date Comments Cigarettes smoked current (pack per 2018-11-13 00:00:00 00:00:00 day) - Reported Cigarette pack-years 2018-11-13 00:00:00 2018-11-13 00:00:00 Alcohol intake 2018-11-13 00:00:00 2018-11-13 00:00:00 Tobacco Comment 2016-12-07 00:00:00 2016-12-07 00:00:00 Smoking Status Start Date Stop Date Heavy Tobacco Smoker Former Smoker History of tobacco use 2018-07-11 00:00: 00 Current every day smoker 2018-06-01 00:00:00 2018-06-01 00:0 0:00 Current some day smoker 2012-02-02 00:00:00 2012-02-02 00:00 :00 Vital Signs Vital Name Observation Time Observation Value Comments BP Diastolic 2019-07-17 00:00:00 95 mm[Hg] Height 2019-07-17 00:00:00 65 [in_i] BP Systolic 2019-07-17 00:00:00 135 mm[Hg] Height 2019-06-14 00:00:00 65 [in_i] BMI (Body Mass Index) 2019-06-14 00:00:00 29.1 kg/m2 Body Weight 2019-06-14 00:00:00 175 [lb_av] BP Diastolic 2019-05-01 00:00:00 98 mm[Hg] Height 2019-05-01 00:00:00 65 [in_i] BMI (Body Mass Index) 2019-05-01 00:00:00 29.1 kg/m2 BP Systolic 2019-05-01 00:00:00 160 mm[Hg] Body Weight 2019-05-01 00:00:00 175 [lb_av] BP Diastolic 2019-03-20 00:00:00 87 mm[Hg] Height 2019-03-20 00:00:00 65 [in_i] BP Systolic 2019-03-20 00:00:00 134 mm[Hg] BP Diastolic 2019-02-14 00:00:00 90 mm[Hg] Height 2019-02-14 00:00:00 65 [in_i] BMI (Body Mass Index) 2019-02-14 00:00:00 29.1 kg/m2 BP Systolic 2019-02-14 00:00:00 136 mm[Hg] Body Weight 2019-02-14 00:00:00 175 [lb_av] Height 2019-02-07 00:00:00 65 [in_i] BMI (Body Mass Index) 2019-02-07 00:00:00 29.1 kg/m2 Body Weight 2019-02-07 00:00:00 175 [lb_av] BP Diastolic 2019-01-23 00:00:00 96 mm[Hg] Height 2019-01-23 00:00:00 65 [in_i] BMI (Body Mass Index) 2019-01-23 00:00:00 29.1 kg/m2 BP Systolic 2019-01-23 00:00:00 140 mm[Hg] Body Weight 2019-01-23 00:00:00 175 [lb_av] SYSTOLIC BLOOD PRESSURE 2018-04-10 11:42:00 150 mm[Hg] DIASTOLIC BLOOD PRESSURE 2018-04-10 11:42:00 86 mm[Hg] HEART RATE 2018-04-10 11:42:00 92 /min Hospital Discharge Instructions 1. Chronic pain syndrome Horizant ER 300 mg tablet,extended release 2. Degeneration of lumbar intervertebral disc 3. Lumbar radiculopathy 4. Low back pain 5. Prolapsed lumbar intervertebral disc with sciatica 6. Sacroiliac joint pain 7. Medication monitoring drug screen, urine Discussion Note:None recorded. Patient educational handouts: No information available.1. Low back pain getting back to normal after low back pain: care instructions 2. Lumbar disc prolapse with radiculopathy Discussion Note: None recorded.1. Low back pain 2. Lumbar disc prolapse with radiculopathy Discussion Note: None recorded. Patient educational handouts: No information available.1. Low back pain 2. Lumbosacral spondylosis without myelopathy 3. Spondylosis without myelopathy Discussion Note: None recorded. Patient educational handouts: No information available.1. Low back pain XR, lumbar spine 2. Degeneration of lumbar intervertebral disc 3. Sacroiliac joint pain 4. Trochanteric bursitis of right hip 5. History of operative procedure on lumbar spinal structure 6. Lumbosacral spondylosis without myelopathy Discussion Note: None recorded. Patient education al handouts: No information available.Patient Instructions - Karina Conley MD - 05/10/2018 9:15 AM EDT Avoid overhead lifting and overhead use of the arms. Do not lift greater than 5 lbs. Tylenol ES one every 6-8 hours for pain and inflam ation. Home exercise program. in this encounterCarol Ann Andrade RN - 04/10/2018 Myelogram Discharge Instructions 1. Go home and rest quietly for the next 24 hours. It is important to lie flat for the next 24 hours. Get up only to go to the restroom. You may lie in the bed or on a couch on your back, your stomach, your left side or your right side. You may have one pillow under your head. You may have pillows between your knees while you are on your side or under your knees while you are on your back. 2. DO NOT drive today. Recline the seat as far back as it will go, while still wearing your seat belt, on the way home. 3. You may get up to go to the bathroom as needed. You may sit up for 10 minutes to eat. You may resume your normal diet and medications unless otherwise indicated. Drink lots of extra fluids today and tomorrow. 4. The incidence of headache, nausea, or vomiting is about 5% (one in 20 patients). If you develop a headache, lie flat and drink plenty of fluids until the headache goes away. Caffeinated beverages may be helpful. Ifyou develop severe nausea and vomiting or a headache that does not go away with flat bed rest, call [phone]. 5. You may resume normal activities after your 24 hours of bed rest is over; however, do not exert yourself strongly or do any heavy lifting tomorrow. If when you get up you have a headache when standing, go back to bed and force fluids for another 24 hours. 6. Call your physician for a follow-up appointment. The results of your myelogram will be sent directly to your physician by the following day. 7. If you have any questions or if complications develop after you arrive home, please call [phone]. Discharge instructions have been explained to the patient. The patient, or the person responsible for the patient, fully understands these instructions. MAY RESUME PLAVIX TODAY. in this encounter
== END ==
LOC: EMPHEALTH 13:09
PROVIDERS: ATTEND Internal Medicine
DX: Z23 Encounter for immunization (principal)
CPT/HCPCS: 91300